=== PATIENT | female | born 1935 | race Caucasian/White ===

== ENCOUNTER 2017-03-18 17:37 | Emergency (ER) | payer MEDICARE, MEDICAID ==
[~2017-03-18] VITALS: Ht 165.1 cm; Wt 74.8 kg
[~2017-03-18 17:37] MED LIST: ASPIR 8181 MG ORAL; ATORVASTATIN CA10 MG ORAL; BENICAR20 MG ORAL; BISACODYL5 MG ORAL; JANUMET 50-1,01 EACH ORAL
[2017-03-18 18:10] VITALS: BP 122/89
[2017-03-18] MEDS ORDERED: TYLENOL EXTRA500 MG ORAL (20:01)
[2017-03-18 20:30] VITALS: BP 132/82
--- NOTE | 2017-03-18 21:40 | Emergency Room Report ---
History of Present Illness General Chief Complaint: Multiple Trauma/Fall Source: Patient Present Illness HPI The patient is a 81-year-old female brought in by daughter after she fell yesterday. The daughter states that the patient was walking on the sidewalk, tripped, and fell onto the left side. She is unsure if she fell and hit her head. Pain is described as a 10/10 dull ache to the L hip and L knee. Pain does not radiate. It is worse with walking. She denies prior injury to these areas. She denies any numbness or tingling. She denies headache, dizziness, blurred vision, N, V, F, chills, abd pain, CP, SOB Mother states patient had a CVA 4 months prior and is taking baby aspirin Allergies: Coded Allergies: PREDNISONE (Verified Allergy, Severe, REDNESS, SWELLING, 03/06/14) PENICILLINS (Verified Allergy, Intermediate, 03/18/17) Patient History Past Medical History: see triage record Pertinent Family History: none Now: No Reviewed Nursing Documentation: PMH: Agreed, PSxH: Agreed Nursing Documentation-PMH Past Medical History: No History, Except For Hx Cardiac Problems: Yes Hx Hypertension: Yes Hx Diabetes: Yes Hx Cancer: No Hx Gastrointestinal Problems: Yes Hx Neurological Problems: No Hx Cerebrovascular Accident: Yes - in oct 2016, R sided weakness Review of Systems All Other Systems: negative except mentioned in HPI Physical Exam Vital Signs Date Time Temp Pulse Resp B/P Pulse Ox O2 Delivery O2 Flow Rate FiO2 03/18/17 17:50 98.1 96 15 120/87 98 Room Air Sp02 EP Interpretation: reviewed, normal General Appearance: no apparent distress, alert, GCS 15, non-toxic Head: normocephalic, atraumatic Eyes: bilateral eye PERRL, bilateral eye normal inspection ENT: hearing grossly normal, normal pharynx, no angioedema, normal voice Neck: full range of motion, supple/symm/no masses Musculoskeletal: normal range of motion, no calf tenderness, pelvis stable, tender - TTP over the L anterior knee and L lateral hip Neurologic: alert, oriented x3, responsive, motor strength/tone normal, sensory intact, speech normal Psychiatric: judgement/insight normal, memory normal, mood/affect normal, no suicidal/homicidal ideation Skin: normal color, no rash, warm/dry, well hydrated Lymphatic: no adenopathy Medical Decision Making PA Attestation Dr. Calhoun is my supervising physician. Patient management was discussed with my supervising physician Diagnostic Impression: Primary Impression: Contusion Qualified Codes: S80.02XA - Contusion of left knee, initial encounter Additional Impression: Osteoarthritis Qualified Codes: M16.9 - Osteoarthritis of hip, unspecified ER Course The patient is a 81-year-old female brought in by daughter after she fell yesterday. Ddx considered include but not limited to ICH, sprain/strain, fracture, contusion PE: vitals WNL. NAD Head NC/AT. PERRL TTP over the L lateral hip and L anterior knee Slow gait The patient is given Tylenol for pain as requested. She denies any other medications. CT scan of the head, L. spine, and pelvis are all unremarkable for acute findings. Left knee x-ray is unremarkable. The patient will be discharged home. She is given the images which she will take to her primary physician. ER precautions are given Other X-Ray Diagnostic Results Other X-Ray Diagnostic Results : X-Ray Ordered: L knee Date: Mar 18, 2017 EP Interpretation: Yes Findings: no fractures, no dislocation, no soft tissue swelling Number of Views: 3 PA Scribe Text I am acting as scribe for my supervising physician. My supervising physician's interpretation of the L knee xrays are there are no fractures, dislocations or soft tissue swelling. CT/MRI/US Diagnostic Results CT/MRI/US Diagnostic Results #1: Imaging Test Ordered: L spine Impression Unremarkable for acute findings CT/MRI/US Diagnostic Results #2: Imaging Test Ordered: Pelvis Impression Unremarkable for acute findings CT/MRI/US Diagnostic Results #3: Imaging Test Ordered: Head Impression Unremarkable for acute findings. No ICH Last Vital Signs Date Time Temp Pulse Resp B/P Pulse Ox O2 Delivery O2 Flow Rate FiO2 03/18/17 20:30 80 14 132/82 94 Room Air 03/18/17 18:10 98.0 Status: improved Disposition: HOME, SELF-CARE Condition: Improved Scripts Acetaminophen* (TYLENOL EXTRA STRENGTH*) 500 Mg Tablet 500 MG ORAL Q8H Y for Prn Headache/Temp > 101, #30 TAB 0 Refills Prov: LIBBY GARCIA.Amado 03/18/17 Referrals: JERRELL STONER (PCP) Patient Instructions: Knee Pain, Arthritis, Fall Prevention in the Home Additional Instructions: I discussed my findings with the patient. All questions and concerns have been answered. Treatment and medication compliance have been addressed. I advised the patient that they need to follow up with PMD in 3-5 days. Return to ED if pain remains or worsens, numbness or tingling occurs, new rash is noticed, fever is noticed, or if needed for any reason. Patient verbalized understanding of discharge instructions. LIBBY GARCIA Mar 18, 2017 21:40
--- NOTE | 2017-03-19 09:49 | Diagnostic Imaging Report ---
Indications: Low back pain Technique: Continuous helical CT imaging of the lumbar spine was performed with automatic exposure control on a Siemens sensation [address] scanner. Axial, coronal, and sagittal images were reconstructed at 3 mm slice thicknesses. CTDI volume(s): 16 mGy Total DLP: 412 mGy-cm Findings: Comparison: None 3 mm subluxation of L2 on L3. No associated pars interarticularis defect. Remainder of vertebral and intact. No fracture, facet subluxation or dislocation, lytic destruction, paraspinous soft tissue abnormality or other acute change identified. The lumbar intervertebral disc spaces demonstrate varying degrees of narrowing with marginal osteophyte formation with annular disc bulge, vacuum phenomenon. Facet joints variably sclerotic and hypertrophied. Spinal canal appears variably narrowed at each level. Scattered arterial mural calcifications. Vascular patency indeterminate. IMPRESSION: No evidence of acute lumbar abnormality George lumbar degenerative spondylosis with apparent multilevel spinal stenosis. Neural impingement not excludable. Consider MRI for further evaluation as clinically indicated. L2-3 grade 1 anterior spondylolisthesis, likely chronic degenerative in nature. Lateral flexion and extension radiographs may be obtained to ascertain stability. Arteriosclerosis This correlates with preliminary report generated overnight by Dr. Aleman.
--- NOTE | 2017-03-19 09:59 | Diagnostic Imaging Report ---
Indications: Left knee pain Technique: 3 views left knee. Findings: Comparison: None No fracture, dislocation, joint space widening or effusion, lytic destruction, periosteal reaction , surrounding soft tissue swelling/foreign body/gas, or other acute changes are identified. Lateral knee joint compartment narrowed with subchondral sclerosis, possible vacuum phenomenon. Small sliver-like osseous density adjacent to medial femoral condyle. No other chronic changes are demonstrated. IMPRESSION: No evidence of acute abnormality of the left knee Degenerative arthropathy Pepe-Stieda lesion compatible with prior injury to the medial collateral ligament
--- NOTE | 2017-03-19 10:02 | Diagnostic Imaging Report ---
Indications: Pelvic pain Technique: Continuous helical CT imaging of the pelvis was performed with automatic exposure control on a Siemens sensation [address] scanner. Axial, coronal, sagittal images reconstructed at 3 mm slice thickness. CTDI volume(s): 14 mGy Total DLP: 430 mGy-cm Findings: Comparison: None No fracture, dislocation, joint space widening, lytic destruction, periosteal reaction, surrounding soft tissue swelling/mass/fluid/gas/foreign body, or other acute changes are identified. Scattered arterial mural calcifications are present. Vascular patency indeterminate. Small focal hernia contains only fat. 3.5 cm circumscribed fatty mass in the periphery of right flank abdominal wall musculature. Multilevel disc space narrowing with marginal osteophyte formation, vacuum phenomenon lower lumbar spine. IMPRESSION: No evidence of acute abnormality of the pelvis Degenerative spondylosis Fat-containing umbilical hernia Right flank abdominal wall muscular lipoma Arteriosclerosis This correlates with Dr. Aleman's preliminary report.
--- NOTE | 2017-03-20 07:59 | Diagnostic Imaging Report ---
Indications: Cephalgia Technique: Continuous helical CT imaging of the brain was performed with automatic exposure control on a Siemens sensation [address] scanner. Axial and coronal images were reconstructed at 5 mm slice thickness and interval. CTDI volume(s): 70 mGy Total DLP: 1368 mGy-cm Findings: Comparison: None. Subcentimeter nodular metallic density resides within the fissure for the right middle cerebral artery. Ventricles, cisterns, sulci are mildly, diffusely prominent. Suggestion of circumscribed low attenuation in king at level of middle cerebellar peduncles.. No evidence of mass or hemorrhage, other attenuation abnormality, mass effect, midline shift, hydrocephalus or increased intracranial pressure. Bone window images are unremarkable. Visualized paranasal sinuses and mastoid air cells are clear. IMPRESSION: Central pontine low attenuation, nonspecific, acuity indeterminate. May represent skull base artifact. Pathology not excludable. This finding not described in preliminary report, minor discrepancy due to questionable nature. Otherwise no evidence of acute intracranial pathology Previous right middle cerebral artery aneurysm coiling Atrophy. This otherwise correlates with Dr. Aleman's preliminary report. The CT scanner at [facility] is accredited by the [employer] and the scans are performed using protocols designed to limit radiation exposure to as low as reasonably achievable to attain images of sufficient resolution adequate for diagnostic evaluation.
== END 2017-03-18 20:35 | disposition home or self-care (01) ==
LOC: EMR 18:06
DX: S80.02XA Contusion of left knee, initial encounter (principal); M16.9 Osteoarthritis of hip, unspecified; W01.0XXA Fall on same level from slipping, tripping and stumbling without subsequent striking against object, initial encounter; Y93.9 Activity, unspecified; Y92.9 Unspecified place or not applicable; Z88.8 Allergy status to other drugs, medicaments and biological substances; Z88.0 Allergy status to penicillin; I10 Essential (primary) hypertension; E11.9 Type 2 diabetes mellitus without complications; Z86.73 Personal history of transient ischemic attack (TIA), and cerebral infarction without residual deficits; Z79.82 Long term (current) use of aspirin
CPT/HCPCS: 70450; 72131; 72192; 99284

== ENCOUNTER 2017-07-22 22:34 | Inpatient (IN) | payer MEDICARE, MEDICAID ==
[~2017-07-22] VITALS: Ht 167.6 cm; Wt 77.1 kg
[~2017-07-22 22:34] MED LIST changes: +TYLENOL EXTRA500 MG ORAL
[2017-07-22 23:03] VITALS: BP 165/70
[2017-07-22] MEDS ORDERED: Morphine Sulfate 4mg/ml Inj IVP ONE (23:15)
[2017-07-22 23:33] LABS: BASOPHILS % (AUTO) 0.8 % (0.0-2.0); EOSINOPHILS % (AUTO) 0.5 % (0.0-3.0); LYMPHOCYTES % (AUTO) 36.5 % (20.0-45.0); MEAN CORPUSCULAR HGB CONC 37.4 G/DL (32.0-36.0); MEAN CORPUSCULAR VOLUME 86 FL (80-99); NEUTROPHILS % (AUTO) 55.1 % (45.0-75.0); PLATELET COUNT 237 K/UL (150-450); RED CELL DISTRIBUTION WIDTH 10.2 % (11.6-14.8); WHITE BLOOD COUNT 10.5 K/UL (4.8-10.8)
[2017-07-22 23:47] LABS: PROTHROMBIN TIME 9.7 SEC (9.30-11.50)
[2017-07-22 23:47] LABS: KETONES,URINE 4+ (NEGATIVE); LEUKOCYTE ESTERASE ,URINE NEGATIVE (NEGATIVE); NITRITE,URINE NEGATIVE (NEGATIVE); PH,URINE 7 (4.5-8.0); PROTEIN,URINE NEGATIVE (NEGATIVE); UROBILINOGEN,URINE NORMAL MG/DL (0.0-1.0)
[2017-07-22 23:49] LABS: APPEARANCE,URINE CLEAR
[2017-07-22 23:50] LABS: SQUAMOUS EPITHELIAL CELL,UR FEW /LPF (NONE/OCC); WBC,URINE 0-2 /HPF (0 - 2)
[2017-07-22 23:50] LABS: TROPONIN I < 0.30 ng/mL (<=0.30)
[2017-07-22 23:53] LABS: ALANINE AMINOTRANSFERASE 27 U/L (3-33); ALBUMIN/GLOBULIN RATIO 1.6 (1.0-2.7); ANION GAP 19 (5-15); ASPARTATE AMINO TRANSFERASE 24 U/L (5-40); CALCIUM 9.2 mg/dL (8.6-10.2); CARBON DIOXIDE 20 mEQ/L (20-30); CHLORIDE 72 mEQ/L (98-107); CREATININE 0.6 mg/dL (0.5-0.9); HEMOLYSIS 13; POTASSIUM 2.9 mEQ/L (3.4-4.9); TOTAL PROTEIN 7.1 g/dL (6.6-8.7)
[2017-07-23] VITALS (9 sets, daily range): BP systolic 123–156; BP diastolic 55–75
[2017-07-23 00:03] LABS: SODIUM 111 mEQ/L (135-145)
[2017-07-23 00:29] LABS: BILIRUBIN,DIRECT 0.2 mg/dL (0.1-0.3)
[2017-07-23] MEDS ORDERED: NORVASC5 MG ORAL (00:43)
[2017-07-23 00:51] LABS: CARBON DIOXIDE 22 mEQ/L (20-30); CHLORIDE 73 mEQ/L (98-107); CREATININE 0.7 mg/dL (0.5-0.9); HEMOLYSIS 3
[2017-07-23] MEDS ORDERED: LORazepam Inj 2mg/ml 1ml IV ONE (01:00)
[2017-07-23 01:08] LABS: ANION GAP 16 (5-15)
[2017-07-23 01:14] LABS: SODIUM 111 mEQ/L (135-145)
[2017-07-23 01:15] LABS: POTASSIUM 2.8 mEQ/L (3.4-4.9)
--- NOTE | 2017-07-23 01:57 | Emergency Room Report ---
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 She require surgery. She presents with chief complaint of headache and nausea and vomiting. Onset for one day. No fever or chills. No diarrhea. No abdominal pain. Denies any other complaint. Colora weak. Allergies: Coded Allergies: PREDNISONE (Verified Allergy, Severe, REDNESS, SWELLING, 03/06/14) PENICILLINS (Verified Allergy, Intermediate, 03/18/17) Patient History Past Medical History: see triage record, old chart reviewed, DM, HTN Past Surgical History: other Pertinent Family History: none Social History: Denies: smoking Now: No Immunizations: other Reviewed Nursing Documentation: PMH: Agreed, PSxH: Agreed Nursing Documentation-PMH Hx Cardiac Problems: Yes Hx Hypertension: Yes Hx Diabetes: Yes Hx Cancer: No Hx Gastrointestinal Problems: Yes Hx Neurological Problems: No - Stroke Hx Cerebrovascular Accident: Yes - in oct 2016, R sided weakness Review of Systems Constitutional: Reports: malaise, weakness Eye: Denies: eye pain, blurred vision ENT: Denies: ear pain, nose congestion, throat swelling Respiratory: Denies: cough, shortness of breath Cardiovascular: Denies: chest pain, palpitations Gastrointestinal: Reports: nausea, vomiting, Denies: abdominal pain, diarrhea Musculoskeletal: Denies: back pain, joint pain Skin: Denies: rash Neurological: Reports: headache, Denies: numbness Endocrine: Denies: increased thirst, increased urine Hematologic/Lymphatic: Denies: easy bruising All Other Systems: negative except mentioned in HPI Physical Exam Vital Signs Date Time Temp Pulse Resp B/P (MAP) Pulse Ox O2 Delivery O2 Flow Rate FiO2 07/22/17 22:29 98.1 73 18 165/70 98 Room Air vitals with hypertension Sp02 EP Interpretation: reviewed, normal General Appearance: no apparent distress, alert, other - Ill-appearing Head: normocephalic, atraumatic Eyes: bilateral eye PERRL, bilateral eye EOMI ENT: hearing grossly normal, normal pharynx Neck: full range of motion, supple, no meningismus Respiratory: chest non-tender, lungs clear, normal breath sounds Cardiovascular #1: regular rate, rhythm, no murmur Gastrointestinal: normal bowel sounds, non tender, no mass, no organomegaly, no bruit, non-distended Musculoskeletal: back normal, normal range of motion Neurologic: alert, oriented x3 Psychiatric: mood/affect normal Skin: warm/dry Procedures Critical Care Time Critical Care Time Critical care is mandated in this patient who presented with severely low p.m.. Patient require my urgent intervention to attenuate the risks of metabolic collapse which may lead to cardiovascular collapse and . Critical care time is 35 minutes excluding any reportable procedure. Critical care time included evaluation, multiple reevaluation, looking at old charts, interpreting laboratory and diagnostic data, discussing case with patient and family and consultants, and charting. Medical Decision Making Diagnostic Impression: Primary Impression: Hyponatremia Additional Impressions: Hypokalemia Weakness ER Course Patient with generalize weakness and has severe hyponatremia and hypokalemia. IV fluid given. She was also given potassium. No evidence of any bleed. No focal deficit to indicate TIA or CVA. Is no abnormal pain. EKG Diagnostic Results Rate: normal Rhythm: NSR ST Segments: no acute changes Rhythm Strip Diag. Results Rhythm Strip Time: 01:53 EP Interpretation: yes Rate: 71 Rhythm: NSR, no PVC's, no ectopy Chest X-Ray Diagnostic Results Chest X-Ray Diagnostic Results : Chest X-Ray Ordered: Yes # of Views/Limited/Complete: 1 View Indication: Shortness of Breath EP Interpretation: Yes Interpretation: no consolidation, no effusion, no pneumothorax, no acute cardiopulmonary disease Impression: No acute disease Interpreting ER Provider: Electronically signed by Omega Troncoso MD CT/MRI/US Diagnostic Results CT/MRI/US Diagnostic Results : Imaging Test Ordered: CT head Impression read by radiologist. Negative. Last Vital Signs Date Time Temp Pulse Resp B/P (MAP) Pulse Ox O2 Delivery O2 Flow Rate FiO2 07/23/17 01:00 72 18 156/66 94 Room Air 07/23/17 00:22 98.1 Status: improved Disposition: ADMITTED INPATIENT Condition: Serious Referrals: NON PHYSICIAN (PCP) OMEGA TRONCOSO M.D. Jul 23, 2017 01:57
[2017-07-23] MEDS ORDERED: Miralax 17gm pkt ORAL PRN (05:00)
[2017-07-23] MEDS ORDERED: Zolpidem 5mg tab ORAL PRN (05:00)
[2017-07-23] MEDS ORDERED: Morphine Sulfate 2mg/ml Inj IVP PRN (05:00)
[2017-07-23] MEDS ORDERED: LORazepam Inj 2mg/ml 1ml IV PRN (05:00)
[2017-07-23] MEDS ORDERED: Mylanta II UD 30ml ORAL PRN (05:00)
[2017-07-23] MEDS ORDERED: NaCl 3% 500ml 500 ML IV ONE (05:30)
[2017-07-23] MEDS: NovoLOG Insulin Flexpen SUBQ SCH ×4 (07:00→22:07)
--- NOTE | 2017-07-23 07:53 | Consultation ---
History of Present Illness General Date patient seen: Jul 23, 2017 Time patient seen: 07:00 Chief Complaint: Vomiting Referring physician: dr Goodwin Reason for Consultation: inpatient management Present Illness HPI 81-year-old female with history of hypertension, diabetes and CVA due to ruptured aneurysm ( required surgery. presents with generalized weakness, headache , nausea and vomiting x 1 day . No fever or chills. No diarrhea. No abdominal pain. Workup in ED revealed Na-111, K-2.8 CXR no acute CP disease CT head no acute IC pathology troponin negative ECG NSR patient was given 1 L NaCl in ED and admitted for further management this am c/o headaches, generalized wakens, vomiting yesterday, but not today patient reported being on diuretics at home, funes not remember name Allergies: Coded Allergies: PREDNISONE (Verified Allergy, Severe, REDNESS, SWELLING, 03/06/14) PENICILLINS (Verified Allergy, Intermediate, 03/18/17) Medication History Scheduled Amlodipine Besylate (Norvasc), 5 MG ORAL DAILY, (Reported) Aspirin* (Aspir 81*), 81 MG ORAL DAILY, (Reported) Atorvastatin Calcium* (Lipitor*), 10 MG ORAL BEDTIME, (Reported) Bisacodyl* (Dulcolax*), 5 MG ORAL DAILY, (Reported) Captopril (Captopril), 25 MG PO DAILY, (Reported) Carvedilol (Coreg), 3.125 MG ORAL EVERY 12 HOURS, (Reported) Olmesartan Medoxomil (Benicar), 20 MG ORAL DAILY, (Reported) Olmesartan Medoxomil (Olmesartan Medoxomil), 20 MG PO HS, (Reported) Sitagliptin Phos/Metformin Hcl (Janumet 50-1,000 Mg Tablet), 1 TAB ORAL DAILY, ( Reported) Sitagliptin Phos/Metformin Hcl (Janumet 50-500 Mg Tablet), 1 TAB ORAL TWICE A DAY, (Reported) Tizanidine Hcl (Tizanidine Hcl), 4 MG ORAL HS, (Reported) Scheduled PRN Acetaminophen* (Tylenol Extra Strength*), 500 MG ORAL Q8H PRN for Prn Headache/ Temp > 101 Zolpidem Tartrate* (Ambien*), 5 MG ORAL BEDTIME PRN for Insomnia, (Reported) Patient History History Provided By: Patient Healthcare decision maker Resuscitation status Full Code Advanced Directive on File No Past Medical/Surgical History Past Medical/Surgical History: (1) Brain aneurysm (2) History of CVA (cerebrovascular accident) (3) 23-polyvalent pneumococcal polysaccharide vaccine indication of diabetes in patient 6 to 64 years of age (4) HTN (hypertension) Review of Systems Constitutional: Reports: weakness Eye: Reports: no symptoms ENT: Reports: no symptoms Cardiovascular: Reports: other - HTN Gastrointestinal: Reports: see HPI Musculoskeletal: Reports: joint pain, muscle stiffness Skin: Reports: no symptoms Psychiatric: Reports: no symptoms Neurological: Reports: no symptoms Endocrine: Reports: other - diabetes Physical Exam General Appearance: alert - oriented, responsive, weak [place]an speaking female in NAD Lines, tubes and drains: peripheral HEENT: normocephalic, atraumatic, anicteric, mucous membranes moist Neck: supple Respiratory/Chest: lungs clear, normal breath sounds, no respiratory distress Cardiovascular/Chest: normal rate, regular rhythm Abdomen: normal bowel sounds, non tender, soft Extremities: no calf tenderness, normal capillary refill Skin Exam: warm/dry Neurologic: alert, oriented x 3 Musculoskeletal: normal muscle bulk Last 24 Hour Vital Signs Date Time Temp Pulse Resp B/P (MAP) Pulse Ox O2 Delivery O2 Flow Rate FiO2 07/23/17 04:00 75 07/23/17 03:05 96.8 71 16 135/67 97 Room Air 07/23/17 02:31 73 07/23/17 02:14 98.1 70 17 146/66 94 Room Air 07/23/17 02:00 70 17 146/66 94 Room Air 07/23/17 01:00 72 18 156/66 94 Room Air 07/23/17 00:22 98.1 07/23/17 00:00 72 19 130/63 97 Room Air 07/22/17 23:03 98.1 70 18 165/70 98 Room Air 07/22/17 22:29 98.1 73 18 165/70 98 Room Air Laboratory Tests Test 07/22/17 23:00 07/22/17 23:40 07/23/17 00:05 White Blood Count 10.5 K/UL (4.8-10.8) Red Blood Count 4.50 M/UL (4.20-5.40) Hemoglobin 14.4 G/DL (12.0-16.0) Hematocrit 38.5 % (37.0-47.0) Mean Corpuscular Volume 86 FL (80-99) Mean Corpuscular Hemoglobin 32.0 PG (27.0-31.0) H Mean Corpuscular Hemoglobin Concent 37.4 G/DL (32.0-36.0) H Red Cell Distribution Width 10.2 % (11.6-14.8) L Platelet Count 237 K/UL (150-450) Mean Platelet Volume 8.0 FL (6.5-10.1) Neutrophils (%) (Auto) 55.1 % (45.0-75.0) Lymphocytes (%) (Auto) 36.5 % (20.0-45.0) Monocytes (%) (Auto) 7.0 % (1.0-10.0) Eosinophils (%) (Auto) 0.5 % (0.0-3.0) Basophils (%) (Auto) 0.8 % (0.0-2.0) Prothrombin Time 9.7 SEC (9.30-11.50) Prothromb Time International Ratio 1.0 (0.9-1.1) Activated Partial Thromboplast Time 27 SEC (23-33) Sodium Level 111 mEQ/L (135-145) *L 111 mEQ/L (135-145) *L Potassium Level 2.9 mEQ/L (3.4-4.9) L 2.8 mEQ/L (3.4-4.9) L Chloride Level 72 mEQ/L (98-107) L 73 mEQ/L (98-107) L Carbon Dioxide Level 20 mEQ/L (20-30) 22 mEQ/L (20-30) Anion Gap 19 (5-15) H 16 (5-15) H Blood Urea Nitrogen 14 mg/dL (7-23) 14 mg/dL (7-23) Creatinine 0.6 mg/dL (0.5-0.9) 0.7 mg/dL (0.5-0.9) Estimat Glomerular Filtration Rate mL/min (>60) mL/min (>60) Glucose Level 173 mg/dL (74-106) H 173 mg/dL (74-106) H Calcium Level 9.2 mg/dL (8.6-10.2) 9.0 mg/dL (8.6-10.2) Total Bilirubin 1.3 mg/dL (0.0-1.2) H Direct Bilirubin 0.2 mg/dL (0.1-0.3) Aspartate Amino Transf (AST/SGOT) 24 U/L (5-40) Alanine Aminotransferase (ALT/SGPT) 27 U/L (3-33) Alkaline Phosphatase 82 U/L (35-104) Troponin I < 0.30 ng/mL (<=0.30) Total Protein 7.1 g/dL (6.6-8.7) Albumin 4.4 g/dL (3.5-5.2) Globulin 2.7 g/dL Albumin/Globulin Ratio 1.6 (1.0-2.7) Urine Color Yellow Urine Appearance Clear Urine pH 7 (4.5-8.0) Urine Specific [place] 1.015 (1.005-1.035) Urine Protein Negative (NEGATIVE) Urine Glucose (UA) Negative (NEGATIVE) Urine Ketones 4+ (NEGATIVE) H Urine Occult Blood 2+ (NEGATIVE) H Urine Nitrite Negative (NEGATIVE) Urine Bilirubin Negative (NEGATIVE) Urine Urobilinogen Normal MG/DL (0.0-1.0) Urine Leukocyte Esterase Negative (NEGATIVE) Urine RBC 2-4 /HPF (0 - 2) H Urine WBC 0-2 /HPF (0 - 2) Urine Squamous Epithelial Cells Few /LPF (NONE/OCC) Urine Bacteria None /HPF (NONE) Height (Feet): 5 Height (Inches): 6.00 Weight (Pounds): 170 Medications Current Medications Medications (Trade) Dose Ordered Sig/Ethan Route PRN Reason Start Time Stop Time Status Last Admin Dose Admin Acetaminophen (Tylenol) 650 mg Q4H PRN ORAL fever 07/23/17 05:00 08/22/17 04:59 Al Hydroxide/Mg Hydroxide (Mylanta II) 30 ml Q6H PRN ORAL dyspepsia 07/23/17 05:00 08/22/17 04:59 Amlodipine Besylate (Norvasc) 5 mg DAILY ORAL 07/23/17 09:00 08/22/17 08:59 Atorvastatin Calcium (Lipitor) 10 mg BEDTIME ORAL 07/23/17 21:00 08/22/17 20:59 Bisacodyl (Dulcolax) 5 mg DAILY ORAL 07/23/17 09:00 08/22/17 08:59 Dextrose (Dextrose 50%) STAT PRN IV Hypoglycemia 07/23/17 05:00 08/22/17 04:59 Heparin Sodium (Porcine) (Heparin 5000 units/ml) 5,000 units EVERY 12 HOURS SUBQ 07/23/17 09:00 08/22/17 08:59 Insulin Aspart (NovoLOG) BEFORE MEALS AND HS SUBQ 07/23/17 06:30 08/22/17 06:29 Lorazepam (Ativan 2mg/ml 1ml) 0.5 mg Q4H PRN IV For Anxiety 07/23/17 05:00 07/30/17 04:59 Morphine Sulfate (Morphine Sulfate) 1 mg Q4H PRN IVP For Pain 07/23/17 05:00 07/30/17 04:59 Ondansetron HCl (Zofran) 4 mg Q6H PRN IVP Nausea & Vomiting 07/23/17 05:00 08/22/17 04:59 Polyethylene Glycol (Miralax) 17 gm HSPRN PRN ORAL Constipation 07/23/17 05:00 08/22/17 04:59 Sodium Chloride 500 ml @ 30 mls/hr ONCE ONCE IV 07/23/17 05:30 07/23/17 22:09 07/23/17 06:00 Zolpidem Tartrate (Ambien) 5 mg HSPRN PRN ORAL Insomnia 07/23/17 05:00 07/30/17 04:59 Assessment/Plan Assessment/Plan ASSESSMENT acute hyponatremia possibly due to dehydration r/o SIADH acute hypokalemia nausea and vomiting likely due to acute hypoNa headache HTN DM Hx of CVA PLAN OF CARE tele 3% NaCL , check BMP at 18 hypo Na workup nephro eval per PMD replace K BP management with CCB, optimize further as needed continue statin, check lipid panel BS management with SS of insulin replace K DVT prophayxlis Pain management case discussed and evaluated by supervising physician Armin ([facility])Jessica NP Jul 23, 2017 07:53
--- NOTE | 2017-07-23 08:23 | Diagnostic Imaging Report ---
Indication: Altered mental status Technique: Contiguous 5 mm thick transaxial imaging of the head obtained in a Siemens Sensation [address] scanner. Soft tissue and bone windows generated. Total Dose length Product (DLP): [address] Dose Index Volume (CTDIvol): 70.38, 0.15 mGy Comparison: 03/18/17 Findings: There is an aneurysm coil in the area of the right sylvian fissure. There is resultant streak artifact limiting evaluation of adjacent brain. Otherwise, size and configuration of the cortical sulci, basal cisterns, and ventricles are within normal limits for age. There is no mass effect, midline shift, or edema identified. There is no evidence of acute hemorrhage or abnormal intra-axial or extra-axial fluid collections. The bones and soft tissues are unremarkable. Impression: No mass effect, edema or acute bleed. Status post previous right aneurysm coil The CT scanner at [facility] is accredited by the [employer] and the scans are performed using dose optimization techniques as appropriate to a performed exam including Automatic Exposure control.
--- NOTE | 2017-07-23 08:37 | Diagnostic Imaging Report ---
Indication: Dyspnea Comparison: 01/16/13 A single view chest radiograph was obtained. Findings: Lung volumes are low. No obvious pulmonary edema or infiltrate. Heart is enlarged. Bones are osteopenic. Aorta is calcified. Impression: No acute disease
[2017-07-23] MEDS: Heparin 5000 units/ml inj SUBQ SCH ×2 (09:00→21:00)
[2017-07-23] MEDS: Bisacodyl EC 5mg tab ORAL SCH (10:26)
[2017-07-23 11:08] LABS: BASOPHILS % (AUTO) 0.6 % (0.0-2.0); EOSINOPHILS % (AUTO) 0.4 % (0.0-3.0); LYMPHOCYTES % (AUTO) 27.2 % (20.0-45.0); MEAN CORPUSCULAR HEMOGLOBIN 32.1 PG (27.0-31.0); MEAN CORPUSCULAR HGB CONC 37.2 G/DL (32.0-36.0); MEAN CORPUSCULAR VOLUME 86 FL (80-99); MEAN PLATELET VOLUME 8.4 FL (6.5-10.1); MONOCYTES % (AUTO) 6.5 % (1.0-10.0); NEUTROPHILS % (AUTO) 65.4 % (45.0-75.0); PLATELET COUNT 236 K/UL (150-450); RED BLOOD COUNT 4.32 M/UL (4.20-5.40); RED CELL DISTRIBUTION WIDTH 10.4 % (11.6-14.8); WHITE BLOOD COUNT 10.9 K/UL (4.8-10.8)
[2017-07-23 11:39] LABS: THYROID STIMULATING HORMONE 2.46 uIU/mL (0.300-4.500)
--- NOTE | 2017-07-23 13:11 | History & Physical ---
History and Physical History & Physicial Dictated for Int Med-Dr Goodwin no. [id number]. KAILA KENNEDY Jul 23, 2017 13:11
--- NOTE | 2017-07-23 13:37 | Consultation ---
Consult Note Consult Note asked to eval for low Na Is a 81-year-old female with history hypertension, diabetes and a previous stroke secondary to ruptured aneurysm. She require surgery. She presents with chief complaint of headache and nausea and vomiting. Onset for one day. No fever or chills. No diarrhea. No abdominal pain. Denies any other complaint. [place] weak. Coded Allergies: PREDNISONE (Verified Allergy, Severe, REDNESS, SWELLING, 03/06/14) PENICILLINS (Verified Allergy, Intermediate, 03/18/17) Hx Cardiac Problems: Yes Hx Hypertension: Yes Hx Diabetes: Yes Hx Gastrointestinal Problems: Yes Hx Cerebrovascular Accident: Yes - in oct 2016, R sided weakness Assessment/Plan Assessment/Plan ASSESSMENT acute hyponatremia ? due to dehydration , r/o SIADH acute hypokalemia HTN DM Hx of CVA PLAN OF CARE tele 3% NaCL , check BMP at 18 hypo Na workup replace K BP management with CCB, optimize further as needed continue statin, check lipid panel BS management with SS of insulin replace K DVT prophayxlis Pain management JAYJAY LAUGHLIN Jul 23, 2017 13:37
[2017-07-23] MEDS ORDERED: CAPTOPRIL25 M1 PO (15:19)
[2017-07-23] MEDS ORDERED: OLMESARTAN MEDO20 MG PO (15:19)
[2017-07-23] MEDS ORDERED: AMBIEN5 MG ORAL (15:19)
[2017-07-23] MEDS ORDERED: TIZANIDINE HCL4 M2 ORAL (15:19)
[2017-07-23] MEDS ORDERED: COREG3.125 MG ORAL (15:19)
[2017-07-23] MEDS ORDERED: JANUMET 50-5001 EACH ORAL (15:19)
[2017-07-23 15:41] LABS: APPEARANCE,URINE CLEAR; KETONES,URINE 3+ (NEGATIVE); LEUKOCYTE ESTERASE ,URINE NEGATIVE (NEGATIVE); NITRITE,URINE NEGATIVE (NEGATIVE); PH,URINE 6 (4.5-8.0); PROTEIN,URINE NEGATIVE (NEGATIVE); UROBILINOGEN,URINE NORMAL MG/DL (0.0-1.0)
[2017-07-23 15:58] LABS: SQUAMOUS EPITHELIAL CELL,UR OCCASIONAL /LPF (NONE/OCC); WBC,URINE 0-2 /HPF (0 - 2)
[2017-07-23 15:59] LABS: BACTERIA,URINE OCCASIONAL /HPF
[2017-07-23 20:02] LABS: ANION GAP 16 (5-15); CALCIUM 8.7 mg/dL (8.6-10.2); CARBON DIOXIDE 23 mEQ/L (20-30); CHLORIDE 79 mEQ/L (98-107); CREATININE 0.8 mg/dL (0.5-0.9); HEMOLYSIS 9; POTASSIUM 3.4 mEQ/L (3.4-4.9)
[2017-07-23 20:08] LABS: SODIUM 118 mEQ/L (135-145)
[2017-07-23] MEDS: NS w/KCl 20mEq 1,000 ML IV SCH (23:49)
[2017-07-24 03:46] VITALS: BP 121/54
--- NOTE | 2017-07-24 04:45 | History and Physical Report ---
DATE OF ADMISSION: 07/23/[address] Goodwin. CHIEF COMPLAINT: The patient is a 81-year-old white female with history of cerebral aneurysm, who presents with chief complaint of headache, nausea, and vomiting. HISTORY OF PRESENT ILLNESS: The patient has a history of cerebral aneurysm in October 2016. The patient is status post craniotomy with clip placement. The patient states she began to have headache two days previously. Headache is on the right side. The patient stated she also had elevated blood pressure to " /30." The patient presented to [place] emergency room. The patient was found to have sodium of 111. The patient was admitted for headache, nausea, vomiting, and hyponatremia. PAST MEDICAL HISTORY: Significant for 1. Hypertension. 2. Diabetes type 2. 3. Cerebral aneurysm in October 2016, status post clip placement. 4. Cerebrovascular accident in October 2016 after aneurysm as above. 5. Hypercholesterolemia. PAST SURGICAL HISTORY: Significant for 1. Right craniotomy with clip placement as above. 2. Right hammertoe repair. CURRENT MEDICATIONS: 1. Norvasc 5 mg one tablet p.o. daily. 2. Aspirin 81 mg one tablet p.o. daily. 3. Lipitor 10 mg one tablet p.o. nightly. 4. Dulcolax 5 mg one tablet p.o. daily. 5. Benicar 20 mg one tablet p.o. daily. 6. Janumet one tablet p.o. daily. ALLERGIES: 1. Prednisolone. 2. Penicillin. SOCIAL HISTORY: The patient is and lives with her adult daughter. The patient denies tobacco or alcohol use. REVIEW OF SYSTEMS: Constitutional: The patient denies weight loss or weight gain. The patient denies fevers or chills. HEENT: The patient complains of headache as above. The patient denies ear or throat pain. Cardiovascular: The patient denies palpitations or chest pain. Chest: The patient denies wheeze or shortness of breath. Abdomen: The patient complains of nausea and vomiting as above. The patient denies diarrhea or constipation. Genitourinary: The patient denies dysuria or increased frequency of urination. Neuromuscular: The patient denies seizures or generalized weakness. PHYSICAL EXAMINATION: GENERAL: The patient is a well-developed and well-nourished white female, in no apparent distress. VITAL SIGNS: Temperature 98.1 degrees, respirations 18, pulse 72, and blood pressure 156/66. HEENT: Eyes, pupils are equal and responsive to light and accommodation. Extraocular movements are intact. NECK: Supple without lymphadenopathy. CHEST: Lungs are clear to auscultation bilaterally without wheezes or rales. CARDIOVASCULAR: Regular rhythm and rate. S1 and S2 are normal without murmurs, rubs, or gallops. ABDOMEN: Soft, nontender, and nondistended. Positive bowel sounds. No evidence of hepatosplenomegaly. Currently, no rebound or guarding noted. EXTREMITIES: Negative for clubbing, cyanosis, or edema. RECTAL/GENITAL: Refused. NEUROLOGIC: Cranial nerves II to XII are grossly intact without focal deficits. Motor strength is 5/5 bilaterally. Deep tendon reflexes are 2+ plantar. LABORATORY STUDIES: WBC 10.5, hemoglobin 14.4, hematocrit 38.5, and platelets 237,000. Sodium 111, potassium 2.9, chloride 72, CO2 of 20, BUN 14, creatinine 0.6, and glucose 173. Troponin less than 0.3. Urinalysis showed 4+ ketones, 2+ occult blood, and 2 to 4 RBCs. ASSESSMENT: This is a 81-year-old white female 1. Headache. 2. Nausea and vomiting. 3. Hyponatremia. 4. Hypokalemia. 5. Hypertension. 6. Diabetes type 2. 7. Hypercholesterolemia. 8. History of cerebral aneurysm. 9. History of cerebrovascular accident. TREATMENT: 1. Headache/nausea/vomiting. The patient is currently receiving Zofran as needed for nausea and vomiting. The patient is currently tolerating a liquid diet. The patient has been receiving morphine for headache. This is slowly resolving. 2. Hyponatremia/hypokalemia. The patient is currently receiving intravenous fluids. 3. Hypertension. Continue Benicar as above. 4. Diabetes type 2. The patient is currently on a NovoLog sliding scale. 5. Hypercholesteremia. Continue Lipitor as above. 6. History of cerebral aneurysm. 7. History of cerebrovascular accident. Kermit Williamson M.D. DR: DANG JOB#: [id number] CC:
--- NOTE | 2017-07-24 07:16 | Pulmonology Progress Note ---
Assessment/Plan Assessment/Plan ASSESSMENT acute hyponatremia probably SIADH acute hypokalemia e/lyte imbalance: hypo mg, hypo P nausea and vomiting likely due to acute hypo Na headache HTN DM Hx of CVA Hypercholesteremia PLAN OF CARE tele s/p 500 cc3% NaCL , Na-118 fluid restriction IV maintenance nephro follows hypo Na workup per nephro another 3% NaCl and Lasix likely SIADH BP management with CCB, optimize further as needed lipid panel with elevated LDL crisis counselor on low fat low cholesterol diet increase statin dose replace lytes BS management with SS of insulin DVT prophayxlis Pain management a/emetic prn case discussed and evaluated by supervising physician Subjective Allergies: Coded Allergies: PREDNISONE (Verified Allergy, Severe, REDNESS, SWELLING, 03/06/14) PENICILLINS (Verified Allergy, Intermediate, 03/18/17) Subjective s/p 3 % NaCL on 07/23 BMP at 18 Na still 120 on IV maintenance still generalized weakness, nausea no vomiting sitting in the chair Objective Last 24 Hour Vital Signs Date Time Temp Pulse Resp B/P (MAP) Pulse Ox O2 Delivery O2 Flow Rate FiO2 07/24/17 03:59 70 07/24/17 03:46 98.6 68 19 121/54 97 Room Air 07/23/17 23:41 98.2 72 18 138/55 96 Room Air 07/23/17 23:33 77 07/23/17 19:43 98.8 76 19 149/75 94 Room Air 07/23/17 19:23 73 07/23/17 16:00 73 07/23/17 15:47 97.7 71 18 123/60 95 Room Air 07/23/17 12:00 73 07/23/17 11:26 97.6 67 18 123/72 96 Room Air 07/23/17 10:26 68 133/72 07/23/17 07:47 97.3 68 18 133/72 95 Room Air Objective General Appearance: alert - oriented, responsive, weak Turkish speaking female in NAD HEENT: normocephalic, atraumatic, anicteric, mucous membranes moist Neck: supple Respiratory/Chest: lungs clear, normal breath sounds, no respiratory distress Cardiovascular/Chest: normal rate, regular rhythm Abdomen: normal bowel sounds, non tender, soft Extremities: no calf tenderness, normal capillary refill Skin Exam: warm/dry Neurologic: alert, oriented x 3 Musculoskeletal: normal muscle bulk Laboratory Tests 07/23/17 10:25: White Blood Count 10.9H, Red Blood Count 4.32, Hemoglobin 13.9, Hematocrit 37.3 , Mean Corpuscular Volume 86, Mean Corpuscular Hemoglobin 32.1H, Mean Corpuscular Hemoglobin Concent 37.2H, Red Cell Distribution Width 10.4L, Platelet Count 236, Mean Platelet Volume 8.4, Neutrophils (%) (Auto) 65.4, Lymphocytes (%) (Auto) 27.2, Monocytes (%) (Auto) 6.5, Eosinophils (%) (Auto) 0.4, Basophils (%) (Auto) 0.6, Osmolality 246L, Uric Acid 3.0, Thyroid Stimulating Hormone (TSH) 2.460, Free Thyroxine 1.44, Cortisol [Pending] 07/23/17 10:26: Free Triiodothyronine [Pending] 07/23/17 15:04: Urine Color Pale yellow, Urine Appearance Clear, Urine pH 6, Urine Specific [place] 1.015, Urine Protein Negative, Urine Glucose (UA) 1+H, Urine Ketones 3+H , Urine Occult Blood 1+H, Urine Nitrite Negative, Urine Bilirubin Negative, Urine Urobilinogen Normal, Urine Leukocyte Esterase Negative, Urine RBC 2-4H, Urine WBC 0-2, Urine Squamous Epithelial Cells Occasional, Urine Bacteria Occasional, Urine Osmolality 539H, Urine Random Sodium 72 07/23/17 18:30: Sodium Level 118*L, Potassium Level 3.4, Chloride Level 79L, Carbon Dioxide Level 23, Anion Gap 16H, Blood Urea Nitrogen 16, Creatinine 0.8, Estimat Glomerular Filtration Rate , Glucose Level 204H, Calcium Level 8.7 Current Medications Medications (Trade) Dose Ordered Sig/Ethan Route PRN Reason Start Time Stop Time Status Last Admin Dose Admin Acetaminophen (Tylenol) 650 mg Q4H PRN ORAL fever 07/23/17 05:00 08/22/17 04:59 Al Hydroxide/Mg Hydroxide (Mylanta II) 30 ml Q6H PRN ORAL dyspepsia 07/23/17 05:00 08/22/17 04:59 Amlodipine Besylate (Norvasc) 5 mg DAILY ORAL 07/23/17 09:00 08/22/17 08:59 07/23/17 10:26 Atorvastatin Calcium (Lipitor) 10 mg BEDTIME ORAL 8/26/17 21:00 08/22/17 20:59 Bisacodyl (Dulcolax) 5 mg DAILY ORAL 07/23/17 09:00 08/22/17 08:59 07/23/17 10:26 Dextrose (Dextrose 50%) STAT PRN IV Hypoglycemia 07/23/17 05:00 08/22/17 04:59 Heparin Sodium (Porcine) (Heparin 5000 units/ml) 5,000 units EVERY 12 HOURS SUBQ 07/23/17 09:00 08/22/17 08:59 Insulin Aspart (NovoLOG) BEFORE MEALS AND HS SUBQ 07/23/17 06:30 08/22/17 06:29 Lorazepam (Ativan 2mg/ml 1ml) 0.5 mg Q4H PRN IV For Anxiety 07/23/17 05:00 07/30/17 04:59 Morphine Sulfate (Morphine Sulfate) 1 mg Q4H PRN IVP For Pain 07/23/17 05:00 07/30/17 04:59 07/23/17 10:39 Ondansetron HCl (Zofran) 4 mg Q6H PRN IVP Nausea & Vomiting 07/23/17 05:00 08/22/17 04:59 Polyethylene Glycol (Miralax) 17 gm HSPRN PRN ORAL Constipation 07/23/17 05:00 08/22/17 04:59 07/23/17 19:55 Sodium Chloride 1,000 ml @ 50 mls/hr Q20H IV 07/23/17 14:00 08/22/17 13:59 07/23/17 23:49 Zolpidem Tartrate (Ambien) 5 mg HSPRN PRN ORAL Insomnia 07/23/17 05:00 07/30/17 04:59 Armin (Hieu)Jessica NP Jul 24, 2017 07:16
[2017-07-24] MEDS: NovoLOG Insulin Flexpen SUBQ SCH ×4 (07:28→21:00)
[2017-07-24 07:45] VITALS: BP 121/61
[2017-07-24 08:03] LABS: MAGNESIUM 1.6 mg/dL (1.7-2.5); PHOSPHORUS 2.2 mg/dL (2.5-4.8)
[2017-07-24 08:17] LABS: BASOPHILS % (AUTO) 0.6 % (0.0-2.0); EOSINOPHILS % (AUTO) 1.3 % (0.0-3.0); LYMPHOCYTES % (AUTO) 36.1 % (20.0-45.0); MEAN CORPUSCULAR HEMOGLOBIN 31.3 PG (27.0-31.0); MEAN CORPUSCULAR HGB CONC 35.9 G/DL (32.0-36.0); MEAN CORPUSCULAR VOLUME 87 FL (80-99); MEAN PLATELET VOLUME 7.9 FL (6.5-10.1); MONOCYTES % (AUTO) 11.7 % (1.0-10.0); NEUTROPHILS % (AUTO) 50.4 % (45.0-75.0); PLATELET COUNT 198 K/UL (150-450); RED BLOOD COUNT 4.21 M/UL (4.20-5.40); RED CELL DISTRIBUTION WIDTH 10.6 % (11.6-14.8); WHITE BLOOD COUNT 7.3 K/UL (4.8-10.8)
[2017-07-24] MEDS: Bisacodyl EC 5mg tab ORAL SCH (08:18)
[2017-07-24] MEDS: Heparin 5000 units/ml inj SUBQ SCH ×2 (08:18→21:00)
[2017-07-24 08:33] LABS: ALANINE AMINOTRANSFERASE 25 U/L (3-33); ALBUMIN/GLOBULIN RATIO 1.5 (1.0-2.7); ANION GAP 12 (5-15); ASPARTATE AMINO TRANSFERASE 22 U/L (5-40); CALCIUM 8.5 mg/dL (8.6-10.2); CARBON DIOXIDE 25 mEQ/L (20-30); CHLORIDE 83 mEQ/L (98-107); CREATININE 0.6 mg/dL (0.5-0.9); HEMOLYSIS 4; POTASSIUM 3.4 mEQ/L (3.4-4.9); SODIUM 120 mEQ/L (135-145)
[2017-07-24 09:22] LABS: CHOLESTEROL 223 mg/dL (< 200); CHOLESTEROL/HDL RATIO 3.6 (3.3-4.4); LDL CHOLESTEROL (CALC.) 145 mg/dL (60-99)
[2017-07-24] MEDS ORDERED: KCl 10% 20 mEq/15ml liquid ORAL ONE (09:30)
[2017-07-24] MEDS: NS w/KCl 20mEq 1,000 ML IV SCH (09:48)
[2017-07-24] MEDS ORDERED: NaCl 3% 500ml 500 ML IV ONE (11:30)
--- NOTE | 2017-07-24 11:31 | General Progress Note ---
Assessment/Plan Status: unchanged Status Narrative Na 120 Assessment/Plan acute hyponatremia ? SIADH s/p hypokalemia HTN DM Hx of CVA PLAN OF CARE tele 3% NaCL , and lasix IV replace K, mag Phos as needed BP management with CCB, optimize further as needed BS management with SS of insulin DVT prophayxlis Pain management Subjective ROS Limited/Unobtainable: No Allergies: Coded Allergies: PREDNISONE (Verified Allergy, Severe, REDNESS, SWELLING, 03/06/14) PENICILLINS (Verified Allergy, Intermediate, 03/18/17) Objective Last 24 Hour Vital Signs Date Time Temp Pulse Resp B/P (MAP) Pulse Ox O2 Delivery O2 Flow Rate FiO2 07/24/17 08:18 78 121/61 07/24/17 08:00 85 07/24/17 07:45 97.3 78 18 121/61 96 Room Air 07/24/17 03:59 70 07/24/17 03:46 98.6 68 19 121/54 97 Room Air 07/23/17 23:41 98.2 72 18 138/55 96 Room Air 07/23/17 23:33 77 07/23/17 19:43 98.8 76 19 149/75 94 Room Air 07/23/17 19:23 73 07/23/17 16:00 73 07/23/17 15:47 97.7 71 18 123/60 95 Room Air 07/23/17 12:00 73 Intake and Output 07/24/17 07/25/17 19:00 07:00 Intake Total 340 ml Balance 340 ml Intake Oral 340 ml # Voids 2 Laboratory Tests 07/23/17 15:04: Urine Color Pale yellow, Urine Appearance Clear, Urine pH 6, Urine Specific [place] 1.015, Urine Protein Negative, Urine Glucose (UA) 1+H, Urine Ketones 3+H , Urine Occult Blood 1+H, Urine Nitrite Negative, Urine Bilirubin Negative, Urine Urobilinogen Normal, Urine Leukocyte Esterase Negative, Urine RBC 2-4H, Urine WBC 0-2, Urine Squamous Epithelial Cells Occasional, Urine Bacteria Occasional, Urine Osmolality 539H, Urine Random Sodium 72 07/23/17 18:30: Sodium Level 118*L, Potassium Level 3.4, Chloride Level 79L, Carbon Dioxide Level 23, Anion Gap 16H, Blood Urea Nitrogen 16, Creatinine 0.8, Estimat Glomerular Filtration Rate , Glucose Level 204H, Calcium Level 8.7 07/24/17 06:50: Sodium Level 120L, Potassium Level 3.4, Chloride Level 83L, Carbon Dioxide Level 25, Anion Gap 12, Blood Urea Nitrogen 14, Creatinine 0.6, Estimat Glomerular Filtration Rate , Glucose Level 150H, Calcium Level 8.5L, White Blood Count 7.3, Red Blood Count 4.21, Hemoglobin 13.2, Hematocrit 36.7L, Mean Corpuscular Volume 87, Mean Corpuscular Hemoglobin 31.3H, Mean Corpuscular Hemoglobin Concent 35.9, Red Cell Distribution Width 10.6L, Platelet Count 198, Mean Platelet Volume 7.9, Neutrophils (%) (Auto) 50.4, Lymphocytes (%) (Auto) 36.1, Monocytes (%) (Auto) 11.7H, Eosinophils (%) (Auto) 1.3, Basophils (%) ( Auto) 0.6, Uric Acid 3.0, Phosphorus Level 2.2L, Magnesium Level 1.6L, Total Bilirubin 0.9, Aspartate Amino Transf (AST/SGOT) 22, Alanine Aminotransferase ( ALT/SGPT) 25, Alkaline Phosphatase 75, Total Protein 6.0L, Albumin 3.6, Globulin 2.4, Albumin/Globulin Ratio 1.5, Triglycerides Level 78, Cholesterol Level 223H, LDL Cholesterol 145H, HDL Cholesterol 62H, Cholesterol/HDL Ratio 3.6 Height (Feet): 5 Height (Inches): 6.00 Weight (Pounds): 170 General Appearance: no apparent distress Cardiovascular: normal rate Respiratory/Chest: lungs clear Objective no change in PE JAYJAY LAUGHLIN Jul 24, 2017 11:31
[2017-07-24 11:34] VITALS: BP 136/57
[2017-07-24] MEDS ORDERED: Potassium Phosphate 30 MM in NS 275 ML IV ONE (12:00)
--- NOTE | 2017-07-24 13:14 | Internal Med Progress Note ---
Subjective Date of Service: Jul 24, 2017 Physician Name Kennedy,Kaila Attending Physician Redd Goodwin MD Current Medications Medications (Trade) Dose Ordered Sig/Ethan Route PRN Reason Start Time Stop Time Status Last Admin Dose Admin Acetaminophen (Tylenol) 650 mg Q4H PRN ORAL fever 07/23/17 05:00 08/22/17 04:59 Amlodipine Besylate (Norvasc) 5 mg DAILY ORAL 07/23/17 09:00 08/22/17 08:59 07/24/17 08:18 Atorvastatin Calcium (Lipitor) 10 mg BEDTIME ORAL 07/23/17 21:00 08/22/17 20:59 Bisacodyl (Dulcolax) 5 mg DAILY ORAL 07/23/17 09:00 08/22/17 08:59 07/24/17 08:18 Dextrose (Dextrose 50%) STAT PRN IV Hypoglycemia 07/23/17 05:00 08/22/17 04:59 Furosemide (Lasix) 10 mg Q6HR IV 07/24/17 12:00 08/23/17 11:59 07/24/17 12:26 Heparin Sodium (Porcine) (Heparin 5000 units/ml) 5,000 units EVERY 12 HOURS SUBQ 07/23/17 09:00 08/22/17 08:59 Insulin Aspart (NovoLOG) BEFORE MEALS AND HS SUBQ 07/23/17 06:30 08/22/17 06:29 Lorazepam (Ativan 2mg/ml 1ml) 0.5 mg Q4H PRN IV For Anxiety 07/23/17 05:00 07/30/17 04:59 Morphine Sulfate (Morphine Sulfate) 1 mg Q4H PRN IVP For Pain 07/23/17 05:00 07/30/17 04:59 07/23/17 10:39 Ondansetron HCl (Zofran) 4 mg Q6H PRN IVP Nausea & Vomiting 07/23/17 05:00 08/22/17 04:59 Polyethylene Glycol (Miralax) 17 gm HSPRN PRN ORAL Constipation 07/23/17 05:00 08/22/17 04:59 07/23/17 19:55 Potassium Phosphate 30 mm/ Sodium Chloride 285 ml @ 47.5 mls/hr ONCE ONCE IV 07/24/17 12:00 07/24/17 17:59 07/24/17 12:25 Sodium Chloride 500 ml @ 30 mls/hr ONCE ONCE IV 07/24/17 11:30 07/25/17 04:09 07/24/17 11:13 Zolpidem Tartrate (Ambien) 5 mg HSPRN PRN ORAL Insomnia 07/23/17 05:00 07/30/17 04:59 Allergies: Coded Allergies: PREDNISONE (Verified Allergy, Severe, REDNESS, SWELLING, 03/06/14) PENICILLINS (Verified Allergy, Intermediate, 03/18/17) ROS Limited/Unobtainable: No Constitutional: Reports: no symptoms HEENT: Reports: no symptoms Cardiovascular: Reports: no symptoms Respiratory: Reports: no symptoms Gastrointestinal/Abdominal: Reports: no symptoms Genitourinary: Reports: no symptoms Neurologic/Psychiatric: Reports: no symptoms Subjective 81 YO F admitted with nausea and vomiting. Now hyponatremia. Cover for Int Med -Dr Goodwin. Objective Last Vital Signs Date Time Temp Pulse Resp B/P (MAP) Pulse Ox O2 Delivery O2 Flow Rate FiO2 07/24/17 11:34 97.7 73 18 136/57 95 Room Air General Appearance: WD/WN, no apparent distress, alert EENT: PERRL/EOMI, normal ENT inspection, TMs normal Neck: non-tender, normal alignment, supple Cardiovascular: normal peripheral pulses, normal rate, regular rhythm, no gallop/murmur, no JVD Respiratory/Chest: chest wall non-tender, lungs clear, normal breath sounds, no respiratory distress, no accessory muscle use Abdomen: normal bowel sounds, non tender, soft, no organomegaly, no mass Extremities: normal range of motion Neurologic: 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 news producer II-XII grossly normal Laboratory Tests Test 07/23/17 15:04 07/23/17 18:30 07/24/17 06:50 Urine Color Pale yellow Urine Appearance Clear Urine pH 6 (4.5-8.0) Urine Specific [place] 1.015 (1.005-1.035) Urine Protein Negative (NEGATIVE) Urine Glucose (UA) 1+ (NEGATIVE) H Urine Ketones 3+ (NEGATIVE) H Urine Occult Blood 1+ (NEGATIVE) H Urine Nitrite Negative (NEGATIVE) Urine Bilirubin Negative (NEGATIVE) Urine Urobilinogen Normal MG/DL (0.0-1.0) Urine Leukocyte Esterase Negative (NEGATIVE) Urine RBC 2-4 /HPF (0 - 2) H Urine WBC 0-2 /HPF (0 - 2) Urine Squamous Epithelial Cells Occasional /LPF Urine Bacteria Occasional /HPF (NONE) Urine Osmolality 539 mOsm/kg (429-449) H Urine Random Sodium 72 mmol/L Sodium Level 118 mEQ/L (135-145) *L 120 mEQ/L (135-145) L Potassium Level 3.4 mEQ/L (3.4-4.9) 3.4 mEQ/L (3.4-4.9) Chloride Level 79 mEQ/L (98-107) L 83 mEQ/L (98-107) L Carbon Dioxide Level 23 mEQ/L (20-30) 25 mEQ/L (20-30) Anion Gap 16 (5-15) H 12 (5-15) Blood Urea Nitrogen 16 mg/dL (7-23) 14 mg/dL (7-23) Creatinine 0.8 mg/dL (0.5-0.9) 0.6 mg/dL (0.5-0.9) Estimat Glomerular Filtration Rate mL/min (>60) mL/min (>60) Glucose Level 204 mg/dL (74-106) H 150 mg/dL (74-106) H Calcium Level 8.7 mg/dL (8.6-10.2) 8.5 mg/dL (8.6-10.2) L White Blood Count 7.3 K/UL (4.8-10.8) Red Blood Count 4.21 M/UL (4.20-5.40) Hemoglobin 13.2 G/DL (12.0-16.0) Hematocrit 36.7 % (37.0-47.0) L Mean Corpuscular Volume 87 FL (80-99) Mean Corpuscular Hemoglobin 31.3 PG (27.0-31.0) H Mean Corpuscular Hemoglobin Concent 35.9 G/DL (32.0-36.0) Red Cell Distribution Width 10.6 % (11.6-14.8) L Platelet Count 198 K/UL (150-450) Mean Platelet Volume 7.9 FL (6.5-10.1) Neutrophils (%) (Auto) 50.4 % (45.0-75.0) Lymphocytes (%) (Auto) 36.1 % (20.0-45.0) Monocytes (%) (Auto) 11.7 % (1.0-10.0) H Eosinophils (%) (Auto) 1.3 % (0.0-3.0) Basophils (%) (Auto) 0.6 % (0.0-2.0) Uric Acid 3.0 mg/dL (3.0-7.5) Phosphorus Level 2.2 mg/dL (2.5-4.8) L Magnesium Level 1.6 mg/dL (1.7-2.5) L Total Bilirubin 0.9 mg/dL (0.0-1.2) Aspartate Amino Transf (AST/SGOT) 22 U/L (5-40) Alanine Aminotransferase (ALT/SGPT) 25 U/L (3-33) Alkaline Phosphatase 75 U/L (35-104) Total Protein 6.0 g/dL (6.6-8.7) L Albumin 3.6 g/dL (3.5-5.2) Globulin 2.4 g/dL Albumin/Globulin Ratio 1.5 (1.0-2.7) Triglycerides Level 78 mg/dL (< 150) Cholesterol Level 223 mg/dL (< 200) H LDL Cholesterol 145 mg/dL (60-99) H HDL Cholesterol 62 mg/dL (> 60) H Cholesterol/HDL Ratio 3.6 (3.3-4.4) Intake and Output 07/24/17 07/25/17 19:00 07:00 Intake Total 340 ml Balance 340 ml Intake Oral 340 ml # Voids 2 Assessment/Plan Problem List: (1) Headache (2) Diabetes mellitus Assessment & Plan: Continue novolog sliding scale. (3) Hypercholesteremia (4) Hyponatremia Assessment & Plan: See nephrology note. ?SIADH? workup in progress. Continue hypertonic saline (5) Hypokalemia (6) History of CVA (cerebrovascular accident) (7) Brain aneurysm (8) HTN (hypertension) Assessment & Plan: Continue norvasc Status: unchanged KAILA KENNEDY Jul 24, 2017 13:14
[2017-07-24 15:17] VITALS: BP 129/60
[2017-07-24 19:43] VITALS: BP 136/70
[2017-07-24] MEDS ORDERED: Atorvastatin 20mg tab ORAL SCH (21:00)
[2017-07-25 00:04] VITALS: BP 131/68
[2017-07-25 03:55] VITALS: BP 132/57
[2017-07-25] MEDS: NovoLOG Insulin Flexpen SUBQ SCH ×3 (06:30→12:17)
[2017-07-25 07:22] LABS: BASOPHILS % (AUTO) 0.7 % (0.0-2.0); EOSINOPHILS % (AUTO) 0.8 % (0.0-3.0); LYMPHOCYTES % (AUTO) 40.1 % (20.0-45.0); MEAN CORPUSCULAR HEMOGLOBIN 33.5 PG (27.0-31.0); MEAN CORPUSCULAR HGB CONC 37.8 G/DL (32.0-36.0); MEAN CORPUSCULAR VOLUME 89 FL (80-99); MONOCYTES % (AUTO) 10.3 % (1.0-10.0); NEUTROPHILS % (AUTO) 48.1 % (45.0-75.0); PLATELET COUNT 216 K/UL (150-450); RED BLOOD COUNT 3.88 M/UL (4.20-5.40); RED CELL DISTRIBUTION WIDTH 10.9 % (11.6-14.8); WHITE BLOOD COUNT 8.5 K/UL (4.8-10.8)
[2017-07-25 07:35] LABS: HEMOGLOBIN A1C 6.3 % (< 6.0)
[2017-07-25 07:40] LABS: ALANINE AMINOTRANSFERASE 25 U/L (3-33); ALBUMIN/GLOBULIN RATIO 1.7 (1.0-2.7); ANION GAP 12 (5-15); ASPARTATE AMINO TRANSFERASE 19 U/L (5-40); CALCIUM 8.5 mg/dL (8.6-10.2); CARBON DIOXIDE 26 mEQ/L (20-30); CHLORIDE 90 mEQ/L (98-107); CREATININE 0.6 mg/dL (0.5-0.9); HEMOLYSIS 6; MAGNESIUM 1.9 mg/dL (1.7-2.5); PHOSPHORUS 2.1 mg/dL (2.5-4.8); POTASSIUM 2.9 mEQ/L (3.4-4.9); SODIUM 128 mEQ/L (135-145); TOTAL PROTEIN 6.3 g/dL (6.6-8.7); URIC ACID 3.2 mg/dL (3.0-7.5)
[2017-07-25 08:00] VITALS: BP 136/67
[2017-07-25] MEDS: Heparin 5000 units/ml inj SUBQ SCH (09:00)
[2017-07-25] MEDS: Bisacodyl EC 5mg tab ORAL SCH (09:04)
--- NOTE | 2017-07-25 10:03 | Internal Med Progress Note ---
Subjective Date of Service: Jul 25, 2017 Physician Name Kaila Kennedy Attending Physician Redd Goodwin MD Current Medications Medications (Trade) Dose Ordered Sig/Ethan Route PRN Reason Start Time Stop Time Status Last Admin Dose Admin Acetaminophen (Tylenol) 650 mg Q4H PRN ORAL fever 07/23/17 05:00 08/22/17 04:59 Amlodipine Besylate (Norvasc) 5 mg DAILY ORAL 07/23/17 09:00 08/22/17 08:59 07/25/17 09:04 Atorvastatin Calcium (Lipitor) 20 mg BEDTIME ORAL 07/24/17 21:00 08/23/17 20:59 07/24/17 20:48 Bisacodyl (Dulcolax) 5 mg DAILY ORAL 07/23/17 09:00 08/22/17 08:59 07/25/17 09:04 Dextrose (Dextrose 50%) STAT PRN IV Hypoglycemia 07/23/17 05:00 08/22/17 04:59 Furosemide (Lasix) 10 mg Q6HR IV 07/24/17 12:00 08/23/17 11:59 07/24/17 23:36 Heparin Sodium (Porcine) (Heparin 5000 units/ml) 5,000 units EVERY 12 HOURS SUBQ 07/23/17 09:00 08/22/17 08:59 Insulin Aspart (NovoLOG) BEFORE MEALS AND HS SUBQ 07/23/17 06:30 08/22/17 06:29 Lorazepam (Ativan 2mg/ml 1ml) 0.5 mg Q4H PRN IV For Anxiety 07/23/17 05:00 07/30/17 04:59 Morphine Sulfate (Morphine Sulfate) 1 mg Q4H PRN IVP For Pain 07/23/17 05:00 07/30/17 04:59 07/23/17 10:39 Ondansetron HCl (Zofran) 4 mg Q6H PRN IVP Nausea & Vomiting 07/23/17 05:00 08/22/17 04:59 Polyethylene Glycol (Miralax) 17 gm HSPRN PRN ORAL Constipation 07/23/17 05:00 08/22/17 04:59 07/23/17 19:55 Potassium Chloride (K-Dur) 40 meq ONCE ONCE ORAL 07/25/17 17:00 07/25/17 17:01 Zolpidem Tartrate (Ambien) 5 mg HSPRN PRN ORAL Insomnia 07/23/17 05:00 07/30/17 04:59 Allergies: Coded Allergies: PREDNISONE (Verified Allergy, Severe, REDNESS, SWELLING, 03/06/14) PENICILLINS (Verified Allergy, Intermediate, 03/18/17) ROS Limited/Unobtainable: No Constitutional: Reports: no symptoms HEENT: Reports: no symptoms Cardiovascular: Reports: no symptoms Respiratory: Reports: no symptoms Gastrointestinal/Abdominal: Reports: no symptoms Genitourinary: Reports: no symptoms Neurologic/Psychiatric: Reports: no symptoms Subjective 81 YO F admitted with nausea and vomiting. Now hyponatremia. Cover for Int [place] -Dr Goodwin. Objective Last Vital Signs Date Time Temp Pulse Resp B/P (MAP) Pulse Ox O2 Delivery O2 Flow Rate FiO2 07/25/17 09:04 79 136/67 07/25/17 08:00 96.8 20 96 Room Air Laboratory Tests Test 07/25/17 04:35 07/25/17 06:59 White Blood Count 8.5 K/UL (4.8-10.8) Red Blood Count 3.88 M/UL (4.20-5.40) L Hemoglobin 13.0 G/DL (12.0-16.0) Hematocrit 34.4 % (37.0-47.0) L Mean Corpuscular Volume 89 FL (80-99) Mean Corpuscular Hemoglobin 33.5 PG (27.0-31.0) H Mean Corpuscular Hemoglobin Concent 37.8 G/DL (32.0-36.0) H Red Cell Distribution Width 10.9 % (11.6-14.8) L Platelet Count 216 K/UL (150-450) Mean Platelet Volume 8.0 FL (6.5-10.1) Neutrophils (%) (Auto) 48.1 % (45.0-75.0) Lymphocytes (%) (Auto) 40.1 % (20.0-45.0) Monocytes (%) (Auto) 10.3 % (1.0-10.0) H Eosinophils (%) (Auto) 0.8 % (0.0-3.0) Basophils (%) (Auto) 0.7 % (0.0-2.0) Sodium Level 128 mEQ/L (135-145) L Potassium Level 2.9 mEQ/L (3.4-4.9) L Chloride Level 90 mEQ/L (98-107) L Carbon Dioxide Level 26 mEQ/L (20-30) Anion Gap 12 (5-15) Blood Urea Nitrogen 12 mg/dL (7-23) Creatinine 0.6 mg/dL (0.5-0.9) Estimat Glomerular Filtration Rate mL/min (>60) Glucose Level 153 mg/dL (74-106) H Hemoglobin A1c 6.3 % (< 6.0) H Uric Acid 3.2 mg/dL (3.0-7.5) Calcium Level 8.5 mg/dL (8.6-10.2) L Phosphorus Level 2.1 mg/dL (2.5-4.8) L Magnesium Level 1.9 mg/dL (1.7-2.5) Total Bilirubin 0.6 mg/dL (0.0-1.2) Aspartate Amino Transf (AST/SGOT) 19 U/L (5-40) Alanine Aminotransferase (ALT/SGPT) 25 U/L (3-33) Alkaline Phosphatase 76 U/L (35-104) Total Protein 6.3 g/dL (6.6-8.7) L Albumin 4.0 g/dL (3.5-5.2) Globulin 2.3 g/dL Albumin/Globulin Ratio 1.7 (1.0-2.7) Cortisol Pending Objective General Appearance: WD/WN, no apparent distress, alert EENT: PERRL/EOMI, normal ENT inspection, TMs normal Neck: non-tender, normal alignment, supple Cardiovascular: normal peripheral pulses, normal rate, regular rhythm, no gallop/murmur, no JVD Respiratory/Chest: chest wall non-tender, lungs clear, normal breath sounds, no respiratory distress, no accessory muscle use Abdomen: normal bowel sounds, non tender, soft, no organomegaly, no mass Extremities: normal range of motion Neurologic: 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 (2) Diabetes mellitus Assessment & Plan: Continue novolog sliding scale. (3) Hypercholesteremia (4) Hyponatremia Assessment & Plan: Improving; See nephrology note. ?SIADH? workup in progress. Continue hypertonic saline (5) Hypokalemia Assessment & Plan: Replace potassium. (6) History of CVA (cerebrovascular accident) (7) Brain aneurysm (8) HTN (hypertension) Assessment & Plan[facility] Status: progressing KAILA KENNEDY Jul 25, 2017 10:03
--- NOTE | 2017-07-25 11:25 | General Progress Note ---
Assessment/Plan Status: stable, other - refusing meds per RN Status Narrative Na higher Assessment/Plan acute hyponatremia ? SIADH s/p hypokalemia HTN DM Hx of CVA PLAN OF CARE 3% NaCL , and lasix IV replace K, mag Phos as needed BP management BS management with SS of insulin DVT prophayxlis Pain management [place]yan interpertor assisted with patient compliance Subjective ROS Limited/Unobtainable: No Constitutional: Reports: malaise Allergies: Coded Allergies: PREDNISONE (Verified Allergy, Severe, REDNESS, SWELLING, 03/06/14) PENICILLINS (Verified Allergy, Intermediate, 03/18/17) Objective Last 24 Hour Vital Signs Date Time Temp Pulse Resp B/P (MAP) Pulse Ox O2 Delivery O2 Flow Rate FiO2 07/25/17 09:04 79 136/67 07/25/17 08:00 96.8 79 20 136/67 96 Room Air 07/25/17 03:55 98.8 68 19 132/57 98 Room Air 07/25/17 03:49 77 07/25/17 00:04 98.3 72 18 131/68 95 Room Air 07/24/17 23:59 82 07/24/17 19:59 78 07/24/17 19:43 98.1 77 19 136/70 97 Room Air 07/24/17 16:00 79 07/24/17 15:17 96.4 66 18 129/60 96 Room Air 07/24/17 12:00 80 07/24/17 11:34 97.7 73 18 136/57 95 Room Air Laboratory Tests 07/25/17 04:35: White Blood Count 8.5, Red Blood Count 3.88L, Hemoglobin 13.0, Hematocrit 34.4L , Mean Corpuscular Volume 89, Mean Corpuscular Hemoglobin 33.5H, Mean Corpuscular Hemoglobin Concent 37.8H, Red Cell Distribution Width 10.9L, Platelet Count 216, Mean Platelet Volume 8.0, Neutrophils (%) (Auto) 48.1, Lymphocytes (%) (Auto) 40.1, Monocytes (%) (Auto) 10.3H, Eosinophils (%) (Auto) 0.8, Basophils (%) (Auto) 0.7, Sodium Level 128L, Potassium Level 2.9L, Chloride Level 90L, Carbon Dioxide Level 26, Anion Gap 12, Blood Urea Nitrogen 12, Creatinine 0.6, Estimat Glomerular Filtration Rate , Glucose Level 153H, Hemoglobin A1c 6.3H, Uric Acid 3.2, Calcium Level 8.5L, Phosphorus Level 2.1L, Magnesium Level 1.9, Total Bilirubin 0.6, Aspartate Amino Transf (AST/SGOT) 19, Alanine Aminotransferase (ALT/SGPT) 25, Alkaline Phosphatase 76, Total Protein 6.3L, Albumin 4.0, Globulin 2.3, Albumin/Globulin Ratio 1.7 07/25/17 06:59: Cortisol [Pending] Height (Feet): 5 Height (Inches): 6.00 Weight (Pounds): 170 General Appearance: no apparent distress, other - refusing meds ! Cardiovascular: regular rhythm Respiratory/Chest: decreased breath sounds Abdomen: soft Objective no change in PE JAYJAY LAUGHLIN Jul 25, 2017 11:25
[2017-07-25] MEDS ORDERED: NaCl 3% 500ml 500 ML IV ONE (11:30)
[2017-07-25 11:43] VITALS: BP 149/72
--- NOTE | 2017-07-25 12:30 | Pulmonology Progress Note ---
Assessment/Plan Problems: (1) Hyponatremia (2) Diabetes mellitus (3) HTN (hypertension) (4) Osteoarthritis Assessment/Plan Na is 128 hyponatremia w/u in progress symptomatic treatment off 3% continue lasix 10 mg q6 med/surg Subjective ROS Limited/Unobtainable: No Constitutional: Reports: no symptoms HEENT: Repors: no symptoms Respiratory: Reports: no symptoms Cardiovascular: Reports: no symptoms Gastrointestinal/Abdominal: Reports: no symptoms Allergies: Coded Allergies: PREDNISONE (Verified Allergy, Severe, REDNESS, SWELLING, 03/06/14) PENICILLINS (Verified Allergy, Intermediate, 03/18/17) Objective Last 24 Hour Vital Signs Date Time Temp Pulse Resp B/P (MAP) Pulse Ox O2 Delivery O2 Flow Rate FiO2 07/25/17 11:43 97.3 70 20 149/72 97 Room Air 07/25/17 09:04 79 136/67 07/25/17 08:00 99 07/25/17 08:00 96.8 79 20 136/67 96 Room Air 07/25/17 03:55 98.8 68 19 132/57 98 Room Air 07/25/17 03:49 77 07/25/17 00:04 98.3 72 18 131/68 95 Room Air 07/24/17 23:59 82 07/24/17 19:59 78 07/24/17 19:43 98.1 77 19 136/70 97 Room Air 07/24/17 16:00 79 07/24/17 15:17 96.4 66 18 129/60 96 Room Air General Appearance: WD/WN, no acute distress HEENT: normocephalic, atraumatic Respiratory/Chest: chest wall non-tender, lungs clear Breasts: no masses Cardiovascular: normal peripheral pulses, normal rate Abdomen: normal bowel sounds, soft, non tender Genitourinary: normal external genitalia Extremities: no cyanosis, no clubbing Skin: no lesions Neurologic/Psychiatric: manager core II-XII grossly normal Lymphatic: no neck adenopathy Musculoskeletal: normal muscle bulk Laboratory Tests 07/25/17 04:35: White Blood Count 8.5, Red Blood Count 3.88L, Hemoglobin 13.0, Hematocrit 34.4L , Mean Corpuscular Volume 89, Mean Corpuscular Hemoglobin 33.5H, Mean Corpuscular Hemoglobin Concent 37.8H, Red Cell Distribution Width 10.9L, Platelet Count 216, Mean Platelet Volume 8.0, Neutrophils (%) (Auto) 48.1, Lymphocytes (%) (Auto) 40.1, Monocytes (%) (Auto) 10.3H, Eosinophils (%) (Auto) 0.8, Basophils (%) (Auto) 0.7, Sodium Level 128L, Potassium Level 2.9L, Chloride Level 90L, Carbon Dioxide Level 26, Anion Gap 12, Blood Urea Nitrogen 12, Creatinine 0.6, Estimat Glomerular Filtration Rate , Glucose Level 153H, Hemoglobin A1c 6.3H, Uric Acid 3.2, Calcium Level 8.5L, Phosphorus Level 2.1L, Magnesium Level 1.9, Total Bilirubin 0.6, Aspartate Amino Transf (AST/SGOT) 19, Alanine Aminotransferase (ALT/SGPT) 25, Alkaline Phosphatase 76, Total Protein 6.3L, Albumin 4.0, Globulin 2.3, Albumin/Globulin Ratio 1.7 07/25/17 06:59: Cortisol [Pending] Current Medications Medications (Trade) Dose Ordered Sig/Ethan Route PRN Reason Start Time Stop Time Status Last Admin Dose Admin Acetaminophen (Tylenol) 650 mg Q4H PRN ORAL fever 07/23/17 05:00 08/22/17 04:59 Amlodipine Besylate (Norvasc) 5 mg DAILY ORAL 07/23/17 09:00 08/22/17 08:59 07/25/17 09:04 Atorvastatin Calcium (Lipitor) 20 mg BEDTIME ORAL 07/24/17 21:00 08/23/17 20:59 07/24/17 20:48 Bisacodyl (Dulcolax) 5 mg DAILY ORAL 07/23/17 09:00 08/22/17 08:59 07/25/17 09:04 Dextrose (Dextrose 50%) STAT PRN IV Hypoglycemia 07/23/17 05:00 08/22/17 04:59 Furosemide (Lasix) 10 mg Q6HR IV 07/24/17 12:00 08/23/17 11:59 07/25/17 12:15 Heparin Sodium (Porcine) (Heparin 5000 units/ml) 5,000 units EVERY 12 HOURS SUBQ 07/23/17 09:00 08/22/17 08:59 Insulin Aspart (NovoLOG) BEFORE MEALS AND HS SUBQ 07/23/17 06:30 08/22/17 06:29 07/25/17 12:17 Lorazepam (Ativan 2mg/ml 1ml) 0.5 mg Q4H PRN IV For Anxiety 07/23/17 05:00 07/30/17 04:59 Morphine Sulfate (Morphine Sulfate) 1 mg Q4H PRN IVP For Pain 07/23/17 05:00 07/30/17 04:59 07/23/17 10:39 Ondansetron HCl (Zofran) 4 mg Q6H PRN IVP Nausea & Vomiting 07/23/17 05:00 08/22/17 04:59 Phosphorus (Phospha 250 Neutral) 500 mg THREE TIMES A DAY ORAL 07/25/17 13:00 08/24/17 12:59 07/25/17 12:15 Polyethylene Glycol (Miralax) 17 gm HSPRN PRN ORAL Constipation 07/23/17 05:00 08/22/17 04:59 07/23/17 19:55 Potassium Chloride (K-Dur) 40 meq ONCE ONCE ORAL 07/25/17 17:00 07/25/17 17:01 Sodium Chloride 500 ml @ 30 mls/hr ONCE ONCE IV 07/25/17 11:30 07/26/17 04:09 07/25/17 12:14 Zolpidem Tartrate (Ambien) 5 mg HSPRN PRN ORAL Insomnia 07/23/17 05:00 07/30/17 04:59 AUDIE TAYLOR Jul 25, 2017 12:30
[2017-07-25] MEDS ORDERED: Phospha 250 Neutral tab ORAL SCH (13:00)
[2017-07-25 14:14] LABS: APPEARANCE,URINE CLEAR; KETONES,URINE NEGATIVE (NEGATIVE); LEUKOCYTE ESTERASE ,URINE 1+ (NEGATIVE); NITRITE,URINE NEGATIVE (NEGATIVE); PH,URINE 7 (4.5-8.0); PROTEIN,URINE NEGATIVE (NEGATIVE); UROBILINOGEN,URINE NORMAL MG/DL (0.0-1.0)
[2017-07-25 14:30] LABS: BACTERIA,URINE OCCASIONAL /HPF; RBC,URINE 0-2 /HPF (0 - 2); SQUAMOUS EPITHELIAL CELL,UR OCCASIONAL /LPF (NONE/OCC); WBC,URINE 0-2 /HPF (0 - 2)
--- NOTE | 2017-07-25 14:44 | Diagnostic Imaging Report ---
Indication:Elevated Bun and Creatinine. Technique: Grayscale and duplex Doppler imaging of the kidneys performed. Comparison: None Findings: There is minimal pelvocaliectasis demonstrated within the kidneys bilaterally. Contour and echogenicity the kidneys are within normal limits. The kidneys are normal in size. The IVC is unremarkable in appearance. The urinary bladder is mildly distended. We asked the patient urinate but she was unable to do so. Both kidneys measure between 9 and 10 cm in length. Impression: Minimal bilateral hydronephrosis. This may be associated with mild bladder distention. Patient was unable to urinate to empty the bladder.
[2017-07-25 16:00] VITALS: BP 149/65
--- NOTE | 2017-07-26 12:37 | Discharge Summary ---
Discharge Summary Hospital Course Date of Admission Jul 23, 2017 at 00:46 Date of Discharge Jul 25, 2017 at 16:10 Admitting Diagnosis Hyponatremia HPI Montserrat Guerra is a 81 year old female who was admitted on Jul 23, 2017 at 00:46 for Hyponatremia Hospital Course dc summary #[id number] Discharge Discharge Disposition Patient signed AMA Discharge Diagnoses: Armin (Raudelpiper),Jessica SIMMONS Jul 26, 2017 12:37
--- NOTE | 2017-07-26 15:37 | Cardiology Report ---
APPROVED REPORT EKG Measurement Heart [id number] NC 182P [id number] Normal sinus rhythm Inferior infarct, age undetermined Abnormal ECG
--- NOTE | 2017-07-27 06:46 | Discharge Summary 2 SIG ---
DATE OF ADMISSION: 07/23/2017 DATE OF DISCHARGE: 07/25/2017 The patient is admitted under Dr. Goodwin. 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 No reported fever or chills. No diarrhea. No abdominal pain. Workup in the ED revealed sodium 111 and potassium 2.8. Chest x-ray revealed no acute cardiopulmonary disease. CT of the head revealed no acute intracranial pathology. Troponin was negative. EKG revealed normal sinus rhythm. The patient was given one liter of fluid in the emergency department and was admitted for further management. ADMITTING DIAGNOSES: 1. Acute hyponatremia, possibly due to dehydration. 2. Rule out syndrome of inappropriate antidiuretic hormone secretion. 3. Acute hypokalemia. 4. Nausea and vomiting, likely due to the acute hyponatremia. 5. Headache. 6. Hypertension. 7. Diabetes. 8. History of cerebrovascular accident. 9. Osteoarthritis. HOSPITAL COURSE: The patient was admitted. The patient was started on telemetry floor. Sodium initially 111. The patient was given 3% normal saline x2 along with Lasix IV every six hours. Sodium up to 128 in two days. Hyponatremia workup initiated. Nephrology evaluation was requested. Radial Drill Press Operator seen and evaluated the patient and closely followed the patient with the renal parameters and electrolytes. Electrolytes were replaced as needed. Blood pressure was managed with the current medication regimen of calcium-channel tamar, optimized further as needed. Continue statin. Blood sugar was managed with sliding scale of insulin. Lipid panel revealed elevated LDH 145 and total cholesterol is 223. Continue statin. Blood sugar was managed with sliding scale of insulin. Potassium was replaced along with other electrolytes. DVT prophylaxis provided. Pain management provided. However, on 07/25/2017, the patient's daughter was in the room and stated that she wants to take her mother to the primary care provider and she does not want her to stay in the hospital. Risks and consequences of signing against medical advice were discussed with the patient and her daughter. Daughter refused for her mother to stay in the hospital and stated that she will take her to her own primary doctor and the patient signed against medical advice form and left. FINAL DIAGNOSES: 1. Acute hyponatremia, possibly dehydration, possible syndrome of inappropriate antidiuretic hormone secretion. 2. Diabetes mellitus. 3. Hypertension. 4. Osteoarthritis. 5. Electrolyte imbalances (hypokalemia, hypophosphatemia, and hypomagnesemia). 6. Hyperlipidemia. DISCHARGE MEDICATIONS: See medication reconciliation list. DISCHARGE INSTRUCTIONS: The patient is discharged home. Follow up with the primary medical doctor. Redd Goodwin M.D. I have been assigned to dictate discharge summary on this account and I was not involved in the patient's management. Jessica templetonleoncio N.PPedro DR: RAMONA JOB#: [id number] CC:
== END 2017-07-25 16:10 | disposition left against medical advice (07) | DRG 424 ==
LOC: EDBD 22:34 → EMR 22:50 → 2E 07-23 00:46 → EDBEDREQ 07-23 01:39
DX: E22.2 Syndrome of inappropriate secretion of antidiuretic hormone (principal); E86.0 Dehydration; E11.9 Type 2 diabetes mellitus without complications; E83.42 Hypomagnesemia; I10 Essential (primary) hypertension; E87.6 Hypokalemia; Z79.84 Long term (current) use of oral hypoglycemic drugs; Z86.73 Personal history of transient ischemic attack (TIA), and cerebral infarction without residual deficits; E78.00 Pure hypercholesterolemia, unspecified; Z88.0 Allergy status to penicillin; Z88.8 Allergy status to other drugs, medicaments and biological substances; R11.2 Nausea with vomiting, unspecified; R51 Headache; M19.90 Unspecified osteoarthritis, unspecified site; E83.39 Other disorders of phosphorus metabolism; E78.5 Hyperlipidemia, unspecified
CPT/HCPCS: 36415; 70450; 71010; 76775; 80048; 80053; 80061; 81001; 81003; 82248; 82533; 82962; 83036; 83735; 83930; 83935; 84100; 84300; 84439; 84443; 84481; 84484; 84550; 85025; 85610; 85730; 87086; 87181; 93005; C9399; J1815; J2405; J8499

== ENCOUNTER 2019-05-28 19:59 | Inpatient (IN) | payer MEDICARE, OTHER ==
[~2019-05-28] VITALS: Ht 165.1 cm; Wt 75.8 kg
[~2019-05-28 19:59] MED LIST changes: +AMBIEN5 MG ORAL; +CAPTOPRIL25 M1 PO; +COREG3.125 MG ORAL; +JANUMET 50-5001 EACH ORAL; +NORVASC5 MG ORAL; +OLMESARTAN MEDO20 MG PO; +TIZANIDINE HCL4 M2 ORAL
[2019-05-28 20:14] VITALS: BP 166/68
--- NOTE | 2019-05-28 20:14 | NUR ---
ED Nurse Note: Patient presents with complaints of recent fall, yesterday of unknown etiology. Patient has increased head pain today and chronic back pain. Patient is accompanied by her daughter at bedside who is providing translation.
--- NOTE | 2019-05-28 20:23 | NUR ---
ED Nurse Note: Blood drawn, urine collected and sent down stairs to lab.
[2019-05-28] MEDS ORDERED: Morphine Sulfate 2mg/ml Inj(IV/IM USE ONLY) IVP ONE ×2 (20:45→22:45)
[2019-05-28 20:58] LABS: INR 0.9 (0.9-1.1)
[2019-05-28 21:01] LABS: HEMATOCRIT 36.6 % (37.0-47.0); HEMOGLOBIN 12.7 G/DL (12.0-16.0); MEAN CORPUSCULAR VOLUME 88 FL (80-99); MONOCYTES % (AUTO) 14.6 % (1.0-10.0); NEUTROPHILS % (AUTO) 44.5 % (45.0-75.0); PLATELET COUNT 207 K/UL (150-450); RED BLOOD COUNT 4.17 M/UL (4.20-5.40); RED CELL DISTRIBUTION WIDTH 11.2 % (11.6-14.8); WHITE BLOOD COUNT 7.6 K/UL (4.8-10.8)
[2019-05-28 21:15] LABS: ALANINE AMINOTRANSFERASE 36 U/L (12-78); ALBUMIN 3.8 G/DL (3.4-5.0); ALBUMIN/GLOBULIN RATIO 1.3 (1.0-2.7); ALKALINE PHOSPHATASE 88 U/L (46-116); ANION GAP 10 mmol/L (5-15); ASPARTATE AMINO TRANSFERASE 16 U/L (15-37); BILIRUBIN,TOTAL 0.3 MG/DL (0.2-1.0); BLOOD UREA NITROGEN 14 mg/dL (7-18); CARBON DIOXIDE 25 MMOL/L (21-32); CHLORIDE 101 MMOL/L (98-107); CREATININE 0.9 MG/DL (0.55-1.30); POTASSIUM 3.5 MMOL/L (3.5-5.1); SODIUM 136 MMOL/L (136-145)
[2019-05-28] MEDS ORDERED: AZOR 5-20 MG T1 EACH ORAL (21:33)
[2019-05-28] MEDS ORDERED: BYSTOLIC2.5 MG ORAL (21:33)
[2019-05-28] MEDS ORDERED: HYDRALAZINE HC100 MG ORAL (21:33)
[2019-05-28 21:41] LABS: CALCIUM 9.4 MG/DL (8.5-10.1)
--- NOTE | 2019-05-28 22:05 | NUR ---
ED Nurse Note: Called and gave report to Julia WISE. Patient will be escorted to floor by RN and tech brazer tester.
[2019-05-28] MEDS ORDERED: Morphine Sulfate 2mg/ml Inj(IV/IM USE ONLY) ONE (22:32)
--- NOTE | 2019-05-28 22:43 | Emergency Room Report ---
History of Present Illness General Chief Complaint: Multiple Trauma/Fall Source: Patient Present Illness HPI Patient is an 83-year-old female brought in by family member after recent fall. Patient reports having fallen yesterday. She states that she does not recall how she ended up on the ground. She reports of increased pain to her low back as well as headache. She reports striking her head. She reports feeling somewhat dizzy. She also reports having some tightness to her neck. She had a prior history of chronic low back pain and is currently using Voltaren gel. She had recently had epidural injection several months ago. She noticed increased swelling to both legs. She denies any palpitations to losing consciousness. Allergies: Coded Allergies: PREDNISONE (Verified Allergy, Severe, REDNESS, SWELLING, 03/06/14) PENICILLINS (Verified Allergy, Intermediate, 03/18/17) Patient History Past Medical History: see triage record Past Surgical History: other - right side aneurysm coil two years ago. Last Menstrual Period: na Reviewed Nursing Documentation: PMH: Agreed; PSxH: Agreed Nursing Documentation-PMH Hx Cardiac Problems: Yes Hx Hypertension: Yes Hx Diabetes: Yes Hx Cancer: No Hx Gastrointestinal Problems: Yes Hx Neurological Problems: No - Stroke Hx Cerebrovascular Accident: Yes - in oct 2016, R sided weakness Hx Neurologic Surgery: Yes - aneurysm clip Physical Exam Vital Signs Date Time Temp Pulse Resp B/P (MAP) Pulse Ox O2 Delivery O2 Flow Rate FiO2 05/28/19 20:14 97.9 69 11 166/68 96 Room Air General Appearance: obese, Chronically Ill Head: other - scalp tenderness ENT: hearing grossly normal Neck: limited range of motion, other - muscle spasm Respiratory: normal inspection, chest non-tender, lungs clear Cardiovascular #1: normal inspection, normal peripheral pulses, regular rate, rhythm, edema - 2+edema Gastrointestinal: normal inspection, normal bowel sounds, non tender, soft Musculoskeletal: decreased range of motion, swelling Neurologic: normal inspection, alert, oriented x3, responsive, coordinator of online programs III-XII nml as tested Psychiatric: normal inspection Skin: normal color Medical Decision Making Diagnostic Impression: Primary Impression: Multiple injuries due to trauma Additional Impressions: Fall Spinal stenosis Head injury Edema ER Course Patient is an 83-year-old female who presented after unwitnessed loss of consciousness. Differential diagnosis include was noted to seizure, syncopal episode, hyponatremia, arrhythmia among others. Because of complexity of patient's case laboratory testing and imaging studies were ordered. Patient is noted to have a prior history of hyponatremia. Laboratory testing showed normal sodium. Patient was noted to be ambulatory with assistance. She was noted to have some significant low back pain and CT imaging was ordered. CT of the lumbar spine read by radiology showed multilevel degenerative changes with some spinal stenosis.CT imaging of the head read by radiology showed no evidence of acute intracranial hemorrhage with prior surgical changes. Patient had previous imaging performed which showed similar degenerative changes. Patient was noted to have some pain to both ankles. Dr. Theo Sutton was contacted for inpatient management due to panel physician. Labs Test 05/28/19 20:23 White Blood Count 7.6 K/UL (4.8-10.8) Red Blood Count 4.17 M/UL (4.20-5.40) Hemoglobin 12.7 G/DL (12.0-16.0) Hematocrit 36.6 % (37.0-47.0) Mean Corpuscular Volume 88 FL (80-99) Mean Corpuscular Hemoglobin 30.5 PG (27.0-31.0) Mean Corpuscular Hemoglobin Concent 34.7 G/DL (32.0-36.0) Red Cell Distribution Width 11.2 % (11.6-14.8) Platelet Count 207 K/UL (150-450) Mean Platelet Volume 7.2 FL (6.5-10.1) Neutrophils (%) (Auto) 44.5 % (45.0-75.0) Lymphocytes (%) (Auto) 37.0 % (20.0-45.0) Monocytes (%) (Auto) 14.6 % (1.0-10.0) Eosinophils (%) (Auto) 3.0 % (0.0-3.0) Basophils (%) (Auto) 1.0 % (0.0-2.0) Prothrombin Time 10.1 SEC (9.30-11.50) Prothromb Time International Ratio 0.9 (0.9-1.1) Activated Partial Thromboplast Time 26 SEC (23-33) Sodium Level 136 MMOL/L (136-145) Potassium Level 3.5 MMOL/L (3.5-5.1) Chloride Level 101 MMOL/L (98-107) Carbon Dioxide Level 25 MMOL/L (21-32) Anion Gap 10 mmol/L (5-15) Blood Urea Nitrogen 14 mg/dL (7-18) Creatinine 0.9 MG/DL (0.55-1.30) Estimat Glomerular Filtration Rate mL/min (>60) Glucose Level 123 MG/DL (74-106) Calcium Level 9.4 MG/DL (8.5-10.1) Total Bilirubin 0.3 MG/DL (0.2-1.0) Aspartate Amino Transf (AST/SGOT) 16 U/L (15-37) Alanine Aminotransferase (ALT/SGPT) 36 U/L (12-78) Alkaline Phosphatase 88 U/L (46-116) Troponin I 0.000 ng/mL (0.000-0.056) Pro-B-Type Natriuretic Peptide 162 pg/mL (0-125) Total Protein 6.8 G/DL (6.4-8.2) Albumin 3.8 G/DL (3.4-5.0) Globulin 3.0 g/dL Albumin/Globulin Ratio 1.3 (1.0-2.7) Last Vital Signs Date Time Temp Pulse Resp B/P (MAP) Pulse Ox O2 Delivery O2 Flow Rate FiO2 05/28/19 21:25 97.9 05/28/19 20:14 70 11 Room Air 05/28/19 20:14 166/68 (100) 96 Status: improved Disposition: ADMITTED INPATIENT Condition: Stable Referrals: NON PHYSICIAN (PCP) Valeriy Esparza MD May 28, 2019 22:43
[2019-05-28] MEDS ORDERED: Meclizine 25mg tab ORAL ONE (22:45)
--- NOTE | 2019-05-28 22:50 | NUR ---
ED Nurse Note: LILIYAD consulted with patient regarding CT and plan of care. ERMD also confirmed with admitting MD and now patient is ready for transport to the floor. Called Julia Whitman to notify her of patient's impending arrival.
--- NOTE | 2019-05-28 23:10 | NUR ---
NURSE NOTES: Patient arrived via gurney from the ED. Received report from FRANDY Hoang. Patient is able to ambulate to the bathroom and to situate herself into bed. New gown and linens provided, director of cardiac rehabilitation in place, vital signs taken and all needs are met. Belongings are accounted for and placed in side drawer. Patient is stable and granddaughter Glendy at bedside to help with translation ([place] speaker).
--- NOTE | 2019-05-28 23:26 | NUR ---
NURSE NOTES: Called and left message to Dr. Sutton's exchange for urgent call regarding admission orders. Awaiting call back.
--- NOTE | 2019-05-28 23:58 | Consultation ---
History of Present Illness General Date patient seen: May 29, 2019 Time patient seen: 08:00 Chief Complaint: Dizziness Referring physician: Dr. Theo Sutton Present Illness HPI Ms Montserrat Guerra Patient is an 83-year-old [place] Ze[place]ander speaking female brought in by family member after recent fall. She reports being dizzy and unstable for the last 10 days and reports having fallen yesterday and struck her head. She states that she does not recall how she ended up on the ground. She reports of increased pain to her low back as well as headache and some tightness to her neck. She reports bilateral swelling and pain in both of her legs. She had a prior history of chronic low back pain and is currently using Voltaren gel. She also has recently had epidural injection several months ago. She noticed increased swelling to both legs. She denies any palpitations, syncope/ LOC during fall yesterday or previously. She denies focal weakness. Allergies: Coded Allergies: PREDNISONE (Verified Allergy, Severe, REDNESS, SWELLING, 03/06/14) PENICILLINS (Verified Allergy, Intermediate, 03/18/17) Medication History Scheduled Amlodipine Bes/Olmesartan Med 5-20 Mg Tablet (Maikel 5-20 Mg Tablet), 1 TAB ORAL DAILY, (Reported) Amlodipine Besylate (Norvasc), 5 MG ORAL DAILY, (Reported) Aspirin* (Aspir 81*), 81 MG ORAL DAILY, (Reported) Atorvastatin Calcium* (Lipitor*), 10 MG ORAL BEDTIME, (Reported) Bisacodyl* (Dulcolax*), 5 MG ORAL DAILY, (Reported) Captopril (Captopril), 25 MG PO DAILY, (Reported) Carvedilol (Coreg), 3.125 MG ORAL EVERY 12 HOURS, (Reported) Hydralazine Hcl* (Hydralazine Hcl*), 150 MG ORAL EVERY 8 HOURS, (Reported) Nebivolol Hcl* (Bystolic*), 5 MG ORAL DAILY, (Reported) Olmesartan Medoxomil (Benicar), 20 MG ORAL DAILY, (Reported) Olmesartan Medoxomil (Olmesartan Medoxomil), 20 MG PO HS, (Reported) Sitagliptin Phos/Metformin Hcl (Janumet 50-1,000 Mg Tablet), 1 TAB ORAL DAILY, ( Reported) Sitagliptin Phos/Metformin Hcl (Janumet 50-500 Mg Tablet), 1 TAB ORAL TWICE A DAY, (Reported) Tizanidine Hcl (Tizanidine Hcl), 4 MG ORAL HS, (Reported) Scheduled PRN Acetaminophen* (Tylenol Extra Strength*), 500 MG ORAL Q8H PRN for Prn Headache/ Temp > 101 Zolpidem Tartrate* (Ambien*), 5 MG ORAL BEDTIME PRN for Insomnia, (Reported) Patient History Limited by: language barrier History Provided By: Patient Healthcare decision maker Resuscitation status Advanced Directive on File Review of Systems Constitutional: Reports: malaise, weakness Eye: Denies: no symptoms, see HPI, eye pain, blurred vision, tearing, double vision, nose pain, nose congestion, acuity changes, discharge, other ENT: Denies: no symptoms, see HPI, ear pain, ear discharge, nose pain, nose congestion, throat pain, throat swelling, mouth pain, hearing loss, nasal discharge, other Respiratory: Denies: no symptoms, see HPI, cough, orthopnea, shortness of breath, stridor, wheezing, SERRANO, sputum, other Cardiovascular: Denies: no symptoms, see HPI, chest pain, edema, palpitations, syncope, PND, other Gastrointestinal: Reports: nausea; Denies: no symptoms, see HPI, abdominal pain , constipation, diarrhea, vomiting, melena, hematemesis, other Genitourinary: Denies: no symptoms, see HPI, discharge, dysuria, frequency, hematuria, pain, retention, incontinence, urgency, vag bleed/dc, other Musculoskeletal: Reports: see HPI, back pain; Denies: no symptoms, gout, joint pain, joint swelling, other Skin: Denies: no symptoms, see HPI, rash, change in color, change in hair/nails , dryness, lesions, other Psychiatric: Denies: no symptoms, see HPI, prior hx, anxiety, depressed feelings, emotional problems, SI, HI, hallucinations, other Neurological: Reports: headache, dizziness, other Endocrine: Denies: no symptoms, see HPI, excessive sweating, flushing, intolerance to temperature, increased thirst, increased urine, unexplained weight loss, other Hematologic/Lymphatic: Denies: no symptoms, see HPI, anemia, blood clots, easy bleeding, easy bruising, swollen glands, diathesis, other Physical Exam General Appearance: WD/WN, no apparent distress, alert, mild distress, overweight, alert oriented x3 Lines, tubes and drains: peripheral HEENT: normocephalic, atraumatic, anicteric, mucous membranes moist, PERRL, EOMI, pharynx normal, supple, no JVD Neck: non-tender, normal alignment, normal inspection, limited range of motion , muscle spasm, paraspinous muscle tender Respiratory/Chest: normal breath sounds, no respiratory distress, no accessory muscle use Cardiovascular/Chest: no gallop/murmur, no JVD Extremities: normal range of motion, calf tenderness, inflammation, trace edema Skin Exam: normal pigmentation, warm/dry, no diaphoresis Neurologic: heating fixture tender II-XII grossly normal, no motor/sensory deficits, alert, oriented x 3, responsive, normal mood/affect, other - Generalized weakness and dizziness/ nausea- low examination threshhold Musculoskeletal: normal muscle bulk, no effusion Last 24 Hour Vital Signs Date Time Temp Pulse Resp B/P (MAP) Pulse Ox O2 Delivery O2 Flow Rate FiO2 05/28/19 22:53 97.9 11 166/ 96 Room Air 05/28/19 21:25 97.9 05/28/19 20:14 70 11 Room Air 05/28/19 20:14 97.9 70 11 166/68 (100) 96 Room Air 05/28/19 20:14 97.9 69 11 166/68 96 Room Air Laboratory Tests Test 05/28/19 20:23 White Blood Count 7.6 K/UL (4.8-10.8) Red Blood Count 4.17 M/UL (4.20-5.40) L Hemoglobin 12.7 G/DL (12.0-16.0) Hematocrit 36.6 % (37.0-47.0) L Mean Corpuscular Volume 88 FL (80-99) Mean Corpuscular Hemoglobin 30.5 PG (27.0-31.0) Mean Corpuscular Hemoglobin Concent 34.7 G/DL (32.0-36.0) Red Cell Distribution Width 11.2 % (11.6-14.8) L Platelet Count 207 K/UL (150-450) Mean Platelet Volume 7.2 FL (6.5-10.1) Neutrophils (%) (Auto) 44.5 % (45.0-75.0) L Lymphocytes (%) (Auto) 37.0 % (20.0-45.0) Monocytes (%) (Auto) 14.6 % (1.0-10.0) H Eosinophils (%) (Auto) 3.0 % (0.0-3.0) Basophils (%) (Auto) 1.0 % (0.0-2.0) Prothrombin Time 10.1 SEC (9.30-11.50) Prothromb Time International Ratio 0.9 (0.9-1.1) Activated Partial Thromboplast Time 26 SEC (23-33) Sodium Level 136 MMOL/L (136-145) Potassium Level 3.5 MMOL/L (3.5-5.1) Chloride Level 101 MMOL/L (98-107) Carbon Dioxide Level 25 MMOL/L (21-32) Anion Gap 10 mmol/L (5-15) Blood Urea Nitrogen 14 mg/dL (7-18) Creatinine 0.9 MG/DL (0.55-1.30) Estimat Glomerular Filtration Rate mL/min (>60) Glucose Level 123 MG/DL (74-106) H Calcium Level 9.4 MG/DL (8.5-10.1) Total Bilirubin 0.3 MG/DL (0.2-1.0) Aspartate Amino Transf (AST/SGOT) 16 U/L (15-37) Alanine Aminotransferase (ALT/SGPT) 36 U/L (12-78) Alkaline Phosphatase 88 U/L (46-116) Troponin I 0.000 ng/mL (0.000-0.056) Pro-B-Type Natriuretic Peptide 162 pg/mL (0-125) H Total Protein 6.8 G/DL (6.4-8.2) Albumin 3.8 G/DL (3.4-5.0) Globulin 3.0 g/dL Albumin/Globulin Ratio 1.3 (1.0-2.7) Height (Feet): 5 Height (Inches): 5.00 Weight (Pounds): 150 Assessment/Plan Problem List: (1) Edema ICD Codes: R60.9 - Edema, unspecified SNOMED: 632238019, 472080707 (2) Spinal stenosis ICD Codes: M48.00 - Spinal stenosis, site unspecified SNOMED: 12424609, 712604748 (3) Head injury ICD Codes: S09.90XA - Unspecified injury of head, initial encounter SNOMED: 27517156, 838671995 (4) Multiple injuries due to trauma ICD Codes: T07.XXXA - Unspecified multiple injuries, initial encounter SNOMED: 876166562 (5) Diabetes mellitus ICD Codes: E11.9 - Type 2 diabetes mellitus without complications SNOMED: 59862227 (6) Contusion ICD Codes: T14.8 - Other injury of unspecified body region SNOMED: 990828853 (7) Headache ICD Codes: R51 - Headache SNOMED: 09406720 (8) Hypercholesteremia ICD Codes: E78.00 - Pure hypercholesterolemia, unspecified SNOMED: 25248029 (9) Hyponatremia ICD Codes: E87.1 - Hypo-osmolality and hyponatremia SNOMED: 90312013 (10) Osteoarthritis ICD Codes: M19.90 - Unspecified osteoarthritis, unspecified site SNOMED: 985793327 (11) Fall ICD Codes: W19.XXXA - Unspecified fall, initial encounter SNOMED: 1485845, 964841934 (12) HTN (hypertension) ICD Codes: I10 - Essential (primary) hypertension SNOMED: 82038172 (13) Brain aneurysm ICD Codes: I67.1 - Cerebral aneurysm, nonruptured SNOMED: 611962027, 902558903 (14) History of CVA (cerebrovascular accident) ICD Codes: Z86.73 - Personal history of transient ischemic attack (TIA), and cerebral infarction without residual deficits SNOMED: 427230664 (15) 23-polyvalent pneumococcal polysaccharide vaccine indication of diabetes in patient 6 to 64 years of age ICD Codes: E11.9 - Type 2 diabetes mellitus without complications; Z91.89 - Other specified personal risk factors, not elsewhere classified SNOMED: 78449686, 659458647 Status: stable Status Narrative This patient has a nonfocal exam with prior hx or right cerebral stent and mild facial weakness at rest but not on movement. She is currently nauseated secondary to dizziness/ vertigo exacerbated by movement . MRI Brain w/o contrast - if coil is MRI safe Largely normotensive at this point but maintain SBP<140 Symptoms are 10 days old so no acute interventions if thromboembolic event occurred - symptom management at this time with Meclizine 25mg TID and PRN 4mg Zofran TID. INstructed nursing staff to check orthostatic vitals - can do sitting up and laying down in bed Cerebral hypoperfusion vs Vestibular migraine Bilateral Venous Doppler study for complaint of bilateral leg pain and swelling. Check TSH Eda Jones N.P. May 28, 2019 23:58
[2019-05-29] VITALS: BP 150/68
--- NOTE | 2019-05-29 00:54 | NUR ---
NURSE NOTES: 2nd attempt made to Dr. Sutton's urgent exchange line for admission orders. Charge nurse notified. Advised to contact Dr. Porter; message left for admission orders on behalf of Dr. Sutton.
[2019-05-29] MEDS ORDERED: Morphine Sulfate 2mg/ml Inj(IV/IM USE ONLY) IVP PRN (02:00)
[2019-05-29] MEDS ORDERED: LORazepam Inj 2mg/ml 1ml IV PRN (02:00)
[2019-05-29] MEDS ORDERED: Miralax 17gm pkt ORAL PRN (02:00)
[2019-05-29] MEDS ORDERED: Albuterol/Ipratropium 3ml neb HHN PRN (02:00)
[2019-05-29] MEDS ORDERED: Mylanta II UD 30ml ORAL PRN (02:00)
[2019-05-29] MEDS ORDERED: Nitroglycerin Subl 0.4mg tab SL PRN (02:00)
[2019-05-29 04:00] VITALS: BP 132/61
--- NOTE | 2019-05-29 07:23 | NUR ---
HAND-OFF: Report given to FRANDY Patrick.
--- NOTE | 2019-05-29 07:24 | NUR ---
NURSE NOTES: Received report from FRANDY Dumont. The patient is having a breakfast on the bed but has mild headache. Karen neuro SEWING MACHINE OPERATOR FLOORPERSON, was at the bedside and gave orders. Will carry out the order. The patient's bed in the lowest position, call light in reach, and fall and aspiration precaution reinforced. IV is intact and patent. Will continue plan of care.
[2019-05-29 08:00] VITALS: BP 124/51
--- NOTE | 2019-05-29 09:00 | NUR ---
NURSE NOTES: Computer password and had trouble in resetting the password. Called help desk and waiting for the call. Medication administration still completed with charge nurse. Per patient, she used to take Amlodipine 5mg at 1600 rather than in the morning. The patient does not want to take medication in the morning but at evening. Will clarify with Dr. Porter to change the dose schedule. Addendum: 05/30/19 at 0744 by Teo Narayanan RN Late Entry: Per patient, she used to take Amlodipine 5mg 1700 rather than in the morning. Clarified with Dr. Porter again regarding changing schedule of the medication and received order. Carried out the order.
--- NOTE | 2019-05-29 09:14 | NUR ---
RADIOLOGY DEPARTMENT, CHEST X-RAY DONE.-P.DYE
[2019-05-29] MEDS: Aspirin EC 81mg tab ORAL SCH (09:50)
[2019-05-29] MEDS: Meclizine 25mg tab ORAL SCH ×3 (09:50→17:33)
[2019-05-29] MEDS: Bystolic 2.5mg Tab ORAL SCH (09:50)
[2019-05-29] MEDS: Heparin 5000 units/ml inj SUBQ SCH ×2 (09:52→21:31)
--- NOTE | 2019-05-29 10:16 | NUR ---
CASE MANAGEMENT: INITIAL REVIEW 83 YO F PRESENTED TO OUR ED FROM HOME CC: MULTIPLE FALL/TRAUMA PMHx: HTN. DM. CVA. SI:SYNCOPE. FALL. T 97.9 HR 69 RR 11 B/P 166/68 SATS 96% ON RA GLU 123 BNP 162 IS: MORPHINE IV X1 ZOFRAN IV X1 PATIENT ADMITTED TO TELE 05/28/2019 @ 8373 DCP: PATIENT TO BE DISCHARGED TO HOME ONCE MEDICALLY CLEARED. PLAN OF CARE: MRI BRAIN VENOUS DUPLEX PT EVAL CAROTID DUPLEX 2D ECHO Addendum: 05/29/19 at 1258 by Luz Mcguire CM INTERQUAL MET
--- NOTE | 2019-05-29 10:20 | NUR ---
NURSE NOTES: Change Amlodipine 5mg 1tab PO QD schedule from [address] Porter's order. Addendum: 05/30/19 at 0746 by Teo Narayanan RN Late Entry: Per patient, she used to take Amlodipine 5mg 1tab PO @1700. Received order from Dr. Porter again in regards to changing the schedule of the medication. Carried out the order.
--- NOTE | 2019-05-29 10:26 | Diagnostic Imaging Report ---
Indication: Back pain Technique: Continuous helical transaxial imaging of the lumbar spine was obtained. No IV contrast was administered. Coronal 2-D reformats were also obtained. Study obtained in a Siemens sensation [address] Total Dose length Product (DLP): [address] Dose Index Volume (CTDIvol): 15.6, 0.25 mGy Comparison: None Findings: There is no evidence of an acute fracture or malalignment. No soft tissue swelling is identified. There is some multilevel narrowing of intervertebral discs somewhat vacuum phenomena. There is a minimal anterolisthesis at L2-3. Pretreatment facets noted within the lumbar spine. Impression: Negative for acute injury. Degenerative changes as described above Atherosclerotic vascular disease The CT scanner at [facility] is accredited by the [employer] and the scans are performed using dose optimization techniques as appropriate to a performed exam including Automatic Exposure control.
--- NOTE | 2019-05-29 11:02 | Diagnostic Imaging Report ---
Indication: Headache Technique: Contiguous 5 mm thick transaxial imaging of the head obtained in a Siemens Sensation [address] scanner. Soft tissue and bone windows generated. Automatic Exposure Control was utilized. Total Dose length Product (DLP): 1376.[address] Dose Index Volume (CTDIvol): 70.38 mGy Comparison: 07/22/2017 CT head Findings: The size and configuration of the cortical sulci, basal cisterns, and ventricles are within normal limits for age. There is no mass effect, midline shift, or edema identified. There is an aneurysm clip in the right aspect of the suprasellar cistern. Associated streak artifact There is no evidence of acute hemorrhage or abnormal intra-axial or extra-axial fluid collections. The bones and soft tissues are unremarkable. Impression: No mass effect, edema or acute bleed. No change. Evidence of previous aneurysm coiling. The CT scanner at [facility] is accredited by the [employer] and the scans are performed using dose optimization techniques as appropriate to a performed exam including Automatic Exposure control.
[2019-05-29 12:00] VITALS: BP 123/64
[2019-05-29] MEDS ORDERED: Ketorolac 30mg Inj IV PRN (12:00)
--- NOTE | 2019-05-29 12:04 | Consultation ---
History of Present Illness General Date patient seen: May 29, 2019 Chief Complaint: Multiple Trauma/Fall Referring physician: Dr. Theo Sutton Present Illness HPI 83-year-old female with hx of DM, HTN, CVA, Brain aneurysm, spinal stenosis brought in by family member after recent fall. she does not recall how she ended up on the ground. She reports of pain to her low back as well as headache. She reports feeling somewhat dizzy and tightness to her neck. She is admitted to telemetry for further evaluation. Allergies: Coded Allergies: PREDNISONE (Verified Allergy, Severe, REDNESS, SWELLING, 03/06/14) PENICILLINS (Verified Allergy, Intermediate, 03/18/17) Medication History Scheduled Amlodipine Bes/Olmesartan Med 5-20 Mg Tablet (Maikel 5-20 Mg Tablet), 1 TAB ORAL DAILY, (Reported) Amlodipine Besylate (Norvasc), 5 MG ORAL DAILY, (Reported) Aspirin* (Aspir 81*), 81 MG ORAL DAILY, (Reported) Atorvastatin Calcium* (Lipitor*), 10 MG ORAL BEDTIME, (Reported) Bisacodyl* (Dulcolax*), 5 MG ORAL DAILY, (Reported) Captopril (Captopril), 25 MG PO DAILY, (Reported) Carvedilol (Coreg), 3.125 MG ORAL EVERY 12 HOURS, (Reported) Hydralazine Hcl* (Hydralazine Hcl*), 150 MG ORAL EVERY 8 HOURS, (Reported) Nebivolol Hcl* (Bystolic*), 5 MG ORAL DAILY, (Reported) Olmesartan Medoxomil (Benicar), 20 MG ORAL DAILY, (Reported) Olmesartan Medoxomil (Olmesartan Medoxomil), 20 MG PO HS, (Reported) Sitagliptin Phos/Metformin Hcl (Janumet 50-1,000 Mg Tablet), 1 TAB ORAL DAILY, ( Reported) Sitagliptin Phos/Metformin Hcl (Janumet 50-500 Mg Tablet), 1 TAB ORAL TWICE A DAY, (Reported) Tizanidine Hcl (Tizanidine Hcl), 4 MG ORAL HS, (Reported) Scheduled PRN Acetaminophen* (Tylenol Extra Strength*), 500 MG ORAL Q8H PRN for Prn Headache/ Temp > 101 Zolpidem Tartrate* (Ambien*), 5 MG ORAL BEDTIME PRN for Insomnia, (Reported) Patient History Healthcare decision maker Resuscitation status Full Code Advanced Directive on File Past Medical/Surgical History Past Medical/Surgical History: (1) History of CVA (cerebrovascular accident) (2) Brain aneurysm (3) Diabetes mellitus (4) Spinal stenosis Review of Systems Eye: Reports: no symptoms Genitourinary: Reports: no symptoms Physical Exam General Appearance: WD/WN Lines, tubes and drains: peripheral HEENT: normocephalic, anicteric Neck: non-tender, normal alignment Respiratory/Chest: chest wall non-tender, lungs clear Abdomen: normal bowel sounds, non tender Genitourinary/Rectal: normal genital exam Extremities: normal range of motion Skin Exam: normal pigmentation Last 24 Hour Vital Signs Date Time Temp Pulse Resp B/P (MAP) Pulse Ox O2 Delivery O2 Flow Rate FiO2 05/29/19 09:55 73 20 95 Room Air 21 05/29/19 08:00 68 05/29/19 08:00 98.4 76 18 124/51 (75) 97 05/29/19 04:00 98.2 69 18 132/61 (84) 94 05/29/19 03:28 69 05/29/19 00:00 97.5 75 20 150/68 (95) 95 05/28/19 23:10 Room Air 05/28/19 23:09 72 05/28/19 22:53 97.9 11 166/68 96 Room Air 05/28/19 21:25 97.9 05/28/19 20:14 70 11 Room Air 05/28/19 20:14 97.9 70 11 166/68 (100) 96 Room Air 05/28/19 20:14 97.9 69 11 166/68 96 Room Air Intake and Output 05/28/19 05/29/19 19:00 07:00 Intake Total 200 ml Balance 200 ml Intake Oral 200 ml # Voids 1 Laboratory Tests Test 05/28/19 20:23 05/29/19 09:50 White Blood Count 7.6 K/UL (4.8-10.8) Red Blood Count 4.17 M/UL (4.20-5.40) L Hemoglobin 12.7 G/DL (12.0-16.0) Hematocrit 36.6 % (37.0-47.0) L Mean Corpuscular Volume 88 FL (80-99) Mean Corpuscular Hemoglobin 30.5 PG (27.0-31.0) Mean Corpuscular Hemoglobin Concent 34.7 G/DL (32.0-36.0) Red Cell Distribution Width 11.2 % (11.6-14.8) L Platelet Count 207 K/UL (150-450) Mean Platelet Volume 7.2 FL (6.5-10.1) Neutrophils (%) (Auto) 44.5 % (45.0-75.0) L Lymphocytes (%) (Auto) 37.0 % (20.0-45.0) Monocytes (%) (Auto) 14.6 % (1.0-10.0) H Eosinophils (%) (Auto) 3.0 % (0.0-3.0) Basophils (%) (Auto) 1.0 % (0.0-2.0) Prothrombin Time 10.1 SEC (9.30-11.50) Prothromb Time International Ratio 0.9 (0.9-1.1) Activated Partial Thromboplast Time 26 SEC (23-33) Sodium Level 136 MMOL/L (136-145) Potassium Level 3.5 MMOL/L (3.5-5.1) Chloride Level 101 MMOL/L (98-107) Carbon Dioxide Level 25 MMOL/L (21-32) Anion Gap 10 mmol/L (5-15) Blood Urea Nitrogen 14 mg/dL (7-18) Creatinine 0.9 MG/DL (0.55-1.30) Estimat Glomerular Filtration Rate mL/min (>60) Glucose Level 123 MG/DL (74-106) H Calcium Level 9.4 MG/DL (8.5-10.1) Total Bilirubin 0.3 MG/DL (0.2-1.0) Aspartate Amino Transf (AST/SGOT) 16 U/L (15-37) Alanine Aminotransferase (ALT/SGPT) 36 U/L (12-78) Alkaline Phosphatase 88 U/L (46-116) Troponin I 0.000 ng/mL (0.000-0.056) Pro-B-Type Natriuretic Peptide 162 pg/mL (0-125) H Total Protein 6.8 G/DL (6.4-8.2) Albumin 3.8 G/DL (3.4-5.0) Globulin 3.0 g/dL Albumin/Globulin Ratio 1.3 (1.0-2.7) Hemoglobin A1c 6.2 % (4.3-6.0) H Height (Feet): 5 Height (Inches): 5.00 Weight (Pounds): 150 Medications Current Medications Medications (Trade) Dose Ordered Sig/Ethan Route PRN Reason Start Time Stop Time Status Last Admin Dose Admin Acetaminophen (Tylenol) 650 mg Q4H PRN ORAL fever 05/29/19 02:00 06/28/19 01:59 05/29/19 03:11 Al Hydroxide/Mg Hydroxide (Mylanta II) 30 ml Q6H PRN ORAL dyspepsia 05/29/19 02:00 06/28/19 01:59 Albuterol/ Ipratropium (Albuterol/ Ipratropium) 3 ml Q4H PRN HHN Shortness of Breath 05/29/19 02:00 06/03/19 01:59 Amlodipine Besylate (Norvasc) 5 mg DAILY@1600 ORAL 05/29/19 16:00 06/28/19 15:59 Aspirin (Ecotrin) 81 mg DAILY ORAL 05/29/19 09:00 06/28/19 08:59 05/29/19 09:50 Clonidine HCl (Catapres Tab) 0.1 mg Q4H PRN ORAL For High Blood Pressure 05/29/19 02:00 06/28/19 01:59 Dextrose (Dextrose 50%) 25 ml Q30M PRN IV Hypoglycemia 05/29/19 02:00 06/28/19 01:59 Dextrose (Dextrose 50%) 50 ml Q30M PRN IV Hypoglycemia 05/29/19 02:00 06/28/19 01:59 Heparin Sodium (Porcine) (Heparin 5000 units/ml) 5,000 units EVERY 12 HOURS SUBQ 05/29/19 09:00 06/28/19 08:59 05/29/19 09:52 Ibuprofen (Advil) 400 mg TIDPRN PRN ORAL Mild Pain (Pain Scale 1-3) 05/29/19 11:45 06/28/19 11:44 Ketorolac Tromethamine (Toradol 30mg) 30 mg Q6H PRN IV severe pain 7-10 05/29/19 12:00 06/03/19 11:59 UNV Lorazepam (Ativan 2mg/ml 1ml) 0.5 mg Q4H PRN IV For Anxiety 05/29/19 02:00 06/05/19 01:59 Meclizine HCl (Antivert) 25 mg TID ORAL 05/29/19 09:00 06/28/19 08:59 05/29/19 09:50 Morphine Sulfate (Morphine Sulfate) 1 mg Q4H PRN IVP For Pain -05/29/19 02:00 06/05/19 01:59 Nebivolol (Bystolic) 5 mg DAILY ORAL 05/29/19 09:00 06/28/19 08:59 05/29/19 09:50 Nitroglycerin (Ntg) 0.4 mg Q5M X 3 DOSES PRN SL Prn Chest Pain 05/29/19 02:00 06/28/19 01:59 Ondansetron HCl (Zofran) 4 mg Q6H PRN IVP Nausea & Vomiting 05/29/19 08:00 06/28/19 07:59 Ondansetron HCl (Zofran) 4 mg TIDPRN PRN ORAL Nausea & Vomiting 05/29/19 08:00 06/28/19 07:59 Polyethylene Glycol (Miralax) 17 gm HSPRN PRN ORAL Constipation 05/29/19 02:00 06/28/19 01:59 Temazepam (Restoril) 15 mg HSPRN PRN ORAL Insomnia 05/29/19 02:00 06/05/19 01:59 Assessment/Plan Problem List: (1) Acute encephalopathy ICD Codes: G93.40 - Encephalopathy, unspecified SNOMED: 79711361, 403482691 (2) Brain aneurysm ICD Codes: I67.1 - Cerebral aneurysm, nonruptured SNOMED: 985996128, 108264353 (3) Spinal stenosis ICD Codes: M48.00 - Spinal stenosis, site unspecified SNOMED: 94739787, 840074796 (4) History of hypertension ICD Codes: Z86.79 - Personal history of other diseases of the circulatory system SNOMED: 273783865 (5) Diabetes mellitus ICD Codes: E11.9 - Type 2 diabetes mellitus without complications SNOMED: 07600845 (6) Osteoarthritis ICD Codes: M19.90 - Unspecified osteoarthritis, unspecified site SNOMED: 525388399 Assessment/Plan: telemetry monitoring sliding scale endocrinology evaluation pain management, she doesn't want narcotics Toradol IV for pain pt.ot Jessi Porter MD May 29, 2019 12:04
--- NOTE | 2019-05-29 12:17 | NUR ---
P.T NOTE: P.T EVALUATION COMPLETED AND TREATMENT INITIATED. PLEASE REFER TO P.T EVALUATION FOR CURRENT FUNCTIONAL STATUS. PATIENT IS ALERT, O X 4 , PLEASANT AND COOPERATIVE. PATIENT REPORTS C/O PAIN IN THE LOWER BACK AND HEADACHE RATED 5-6/10. PATIENT ALSO REPORTS C/O BEING GENERALLY WEAK AND FATIGUED AFFECTING HER BALANCE AND OVERALL FUNCTIONAL MOBILITY PERFORMANCE. PATIENT CURRENTLY REQUIRE SBA X 1 FOR BED MOBILITIES, CGA X 1 FOR TRANSFERS AND GAIT/AMBULATION USING HER OWN SPC. PATIENT WILL BENEFIT FROM SKILLED P.T SERVICES TO IMPROVE HER STRENGTH, ENDURANCE AND BALANCE. RECOMMEND D/C TO HOME WITH FAMILY ASSISTANCE UNTIL STABLE WITH HOME P.T FOLLOW UP OR SNF FOR [place]. RECOMMEND FWW VS SPC TO FACILITATE SAFETY DURING ACTIVITIES. PATIENT IS CLEARED FOR OOB ACTIVITIES WITH NURSING. THANK YOU FOR THIS REFERRAL.
--- NOTE | 2019-05-29 13:03 | NUR ---
NURSE NOTES: The patient went down for MRI of brain without contrast. Off tele order initiated. It will take 20 minutes per Nazario, chief ophthalmic technician. Will continue plan of care as soon as the patient arrives back to the unit.
--- NOTE | 2019-05-29 13:20 | Diagnostic Imaging Report ---
Indication: Dyspnea Comparison: 07/22/2017 A single view chest radiograph was obtained. Findings: Cardiomediastinal appearance is within normal limits for age. The lungs are clear. Pulmonary vascularity is appropriate. The diaphragmatic contour is smooth and costophrenic angles are sharp. No pleural effusions are identified. The bones are unremarkable. Impression: No acute findings
--- NOTE | 2019-05-29 13:48 | NUR ---
NURSE NOTES: The patient is safely back from Brain MRI without contrast. Will continue to monitor the patient.
--- NOTE | 2019-05-29 14:39 | Cardiology Report ---
APPROVED REPORT EXAM: Two-dimensional and M-mode echocardiogram with Doppler and color Doppler. INDICATION LV FUNCTION M-Mode DIMENSIONS IVSd1.2 (0.7-1.1cm)Left Atrium (MM)3.2 (1.6-4.0cm) LVDd3.9 (3.5-5.6cm)Aortic Root3.6 (2.0-3.7cm) PWd1.1 (0.7-1.1cm)Aortic Cusp Exc.1.8 (1.5-2.0cm) IVSs1.6 cm LVDs2.1 (2.5-4.0cm) PWs1.0 cm Normal left ventricular chamber size, systolic function and wall motion . Left ventricular ejection fraction estimated to be 60-65%. Mild left ventricular hypertrophy by 2-D. Anterior Echo-free space, may be due to pericardial fat or effusion. All other cardiac chamber sizes are within normal limits. Aortic valve calcification with normal cusp excursion . Mildly thickened mitral valve leaflets with normal excursion. Mild mitral annulus and aortic root calcification. Pulmonic valve not well visualized. IVC at normal size with physiologic collapse . A color flow and spectral Doppler study was performed and revealed: No aortic insufficiency . Mitral diastolic velocities suggest reduced left ventricular relaxation c/w mild LV diastolic dysfunction (Grade I ) Mild to moderate mitral regurgitation. Mild tricuspid regurgitation. Tricuspid systolic velocities suggests peak right ventricular systolic pressure of 34mmHg. Mild pulmonic regurgitation .
--- NOTE | 2019-05-29 15:39 | NUR ---
NURSE NOTES: Spoke with Karen Neuro TALLOW REFINER, regarding facial swelling, pressure on head, and bilateral eye discomfort. She denies of nausea or vomiting at this time. Will continue to monitor the patient and will carry out the order as soon as receives it.
--- NOTE | 2019-05-29 15:40 | NUR ---
NURSE NOTES: Per patient, she has been on Janumet 500mg 1tab PO Qam for DM. Notified to Dr. Sutton. Per Dr. Sutton, accucheck AC+HS and resume Janumet 500mg 1tab PO Qam and Insullin sliding scale. Will carry out the order. Addendum: 05/29/19 at 1852 by Teo Narayanan RN Janumet 50/500mg 1tab PO before breakfast.
[2019-05-29 16:00] VITALS: BP 123/57
--- NOTE | 2019-05-29 16:40 | Diagnostic Imaging Report ---
Indication: Dizziness. History of aneurysm coiling Technique: The head was imaged in a 1.5 Maribel magnet. Sequences obtained include sagittal and axial T1 FLAIR, axial T2 fast spin echo with fat saturation, axial T2 FLAIR, diffusion and ADC map. Comparison: CT head 05/28/2019 There is a focus of aneurysm coils in the right aspect of the suprasellar cistern best seen on the recent CT and T2* gradient echo sequence as susceptibility artifact. Flow voids are seen within major intracranial vessels. There is no evidence of intracranial bleed. There is no mass effect or edema. Minimal generalized atrophy of the brain noted certainly age appropriate. Corpus callosum is unremarkable. The pituitary gland appears somewhat prominent for age. Correlate clinically. Bone marrow signal is normal. There is minimal periventricular T2 hyperintense signal centrally acceptable at this age. There is no diffusion restriction. No abnormal extra-axial collections are identified. Cerebellum is unremarkable. IMPRESSION: No acute CVA, intracranial bleed, mass effect or edema identified. Status post aneurysm coil at the right ICA/MCA junction. Minimal periventricular T2 hyperintense signal consistent chronic small vessel disease. Somewhat prominent pituitary gland for age. Correlate clinically.
--- NOTE | 2019-05-29 17:15 | History and Physical Report ---
DATE OF ADMISSION: 05/28/2019 DATE AND TIME SEEN: 05/29/2019 at 12 noon. CONSULTANTS: 1. Jessi Porter M.D. 2. Gianluca Gray M.D. 3. Justice Schmitt M.D. CHIEF COMPLAINT: Syncope. BRIEF HISTORY: This is an 83-year-old female who lives at home by herself had a syncopal episode last night. It was unwitnessed. The patient was dizzy and then fainted. She did not become incontinent. The patient hit her back and head and was slightly tired, called 911. The patient was transferred to [facility], diagnosed with above, admitted to telemetry for further care. Currently, slightly anxious in bed, slight general pain, back pain, no complaint. REVIEW OF SYSTEMS: No chest pain. No shortness of breath. No nausea, vomiting, or diarrhea. PAST MEDICAL HISTORY: Includes hypertension, diabetes, spinal stenosis, brain aneurysm. PAST SURGICAL HISTORY: Brain aneurysm clipping, knee replacement. ALLERGIES: Steroids, prednisone, and penicillin. SOCIAL HISTORY: No smoking. No alcohol. No intravenous drug abuse. FAMILY HISTORY: Noncontributory. PHYSICAL EXAMINATION: GENERAL: Calm, slightly anxious in room, oriented x3, no acute distress. VITAL SIGNS: Temperature is 98 degrees, pulse 76, respirations 18, blood pressure 124/51. CARDIOVASCULAR: No murmur. LUNGS: Distant and clear. ABDOMEN: Bowel sounds distant. Nontender. Nondistended. EXTREMITIES: No cyanosis, clubbing, or edema. NEUROLOGIC: The patient moves all extremities, slightly weak. LABORATORY AND DIAGNOSTIC DATA: Labs at this time show CBC is normal. BMP shows glucose 123, otherwise BMP is normal. Troponin 0.00. BNP is 162. INR is 0.9, PTT is 26. MEDICATIONS: Include amlodipine, Toradol, ibuprofen, aspirin, meclizine, Zofran, Tylenol, lorazepam. ASSESSMENT: 1. Syncope. 2. Leg swelling. 3. Low back pain. 4. Hypertension. 5. Diabetes. 6. Spinal stenosis. 7. Brain aneurysm. 8. CVA. 9. Arthritis. PLAN: 1. PT/Dietary eval. 2. Pain control. 3. Blood pressure control. 4. Dietary followup. 5. Blood pressure, blood sugar control. 6. CBC, BMP in the morning. 7. Resume home medications. Theo Sutton D.O. DR: LUCAS JOB#: [id number] CC:
[2019-05-29] MEDS: NovoLOG Insulin Flexpen SUBQ SCH ×2 (17:23→21:32)
--- NOTE | 2019-05-29 18:51 | Cardiac Electrophysiology PN ---
Subjective Subjective [id number] Objective Last 24 Hour Vital Signs Date Time Temp Pulse Resp B/P (MAP) Pulse Ox O2 Delivery O2 Flow Rate FiO2 05/29/19 17:33 62 123/57 05/29/19 16:00 98.2 62 18 123/57 (79) 98 05/29/19 16:00 60 05/29/19 12:00 98.4 64 18 123/64 (83) 98 05/29/19 12:00 75 05/29/19 09:55 73 20 95 Room Air 21 05/29/19 09:10 83 05/29/19 09:05 73 05/29/19 09:00 76 05/29/19 09:00 Room Air 05/29/19 08:00 68 05/29/19 08:00 98.4 76 18 124/51 (75) 97 05/29/19 04:00 98.2 69 18 132/61 (84) 94 05/29/19 03:28 69 05/29/19 00:00 97.5 75 20 150/68 (95) 95 05/28/19 23:10 Room Air 05/28/19 23:09 72 05/28/19 22:53 97.9 11 166/68 96 Room Air 05/28/19 21:25 97.9 05/28/19 20:14 70 11 Room Air 05/28/19 20:14 97.9 70 11 166/68 (100) 96 Room Air 05/28/19 20:14 97.9 69 11 166/68 96 Room Air Intake and Output 05/28/19 05/29/19 19:00 07:00 Intake Total 200 ml Balance 200 ml Intake Oral 200 ml # Voids 1 Laboratory Tests Test 05/28/19 20:23 05/29/19 09:50 White Blood Count 7.6 K/UL (4.8-10.8) Red Blood Count 4.17 M/UL (4.20-5.40) L Hemoglobin 12.7 G/DL (12.0-16.0) Hematocrit 36.6 % (37.0-47.0) L Mean Corpuscular Volume 88 FL (80-99) Mean Corpuscular Hemoglobin 30.5 PG (27.0-31.0) Mean Corpuscular Hemoglobin Concent 34.7 G/DL (32.0-36.0) Red Cell Distribution Width 11.2 % (11.6-14.8) L Platelet Count 207 K/UL (150-450) Mean Platelet Volume 7.2 FL (6.5-10.1) Neutrophils (%) (Auto) 44.5 % (45.0-75.0) L Lymphocytes (%) (Auto) 37.0 % (20.0-45.0) Monocytes (%) (Auto) 14.6 % (1.0-10.0) H Eosinophils (%) (Auto) 3.0 % (0.0-3.0) Basophils (%) (Auto) 1.0 % (0.0-2.0) Prothrombin Time 10.1 SEC (9.30-11.50) Prothromb Time International Ratio 0.9 (0.9-1.1) Activated Partial Thromboplast Time 26 SEC (23-33) Sodium Level 136 MMOL/L (136-145) Potassium Level 3.5 MMOL/L (3.5-5.1) Chloride Level 101 MMOL/L (98-107) Carbon Dioxide Level 25 MMOL/L (21-32) Anion Gap 10 mmol/L (5-15) Blood Urea Nitrogen 14 mg/dL (7-18) Creatinine 0.9 MG/DL (0.55-1.30) Estimat Glomerular Filtration Rate mL/min (>60) Glucose Level 123 MG/DL (74-106) H Calcium Level 9.4 MG/DL (8.5-10.1) Total Bilirubin 0.3 MG/DL (0.2-1.0) Aspartate Amino Transf (AST/SGOT) 16 U/L (15-37) Alanine Aminotransferase (ALT/SGPT) 36 U/L (12-78) Alkaline Phosphatase 88 U/L (46-116) Troponin I 0.000 ng/mL (0.000-0.056) Pro-B-Type Natriuretic Peptide 162 pg/mL (0-125) H Total Protein 6.8 G/DL (6.4-8.2) Albumin 3.8 G/DL (3.4-5.0) Globulin 3.0 g/dL Albumin/Globulin Ratio 1.3 (1.0-2.7) Hemoglobin A1c 6.2 % (4.3-6.0) H Gianluca Gray MD May 29, 2019 18:51
--- NOTE | 2019-05-29 19:58 | NUR ---
HAND-OFF: Report given to FRANDY Lan. The patient is resting on the bed without acute distress or shortness of breath. The patient's bed in the lowest position, call light in reach, and fall precaution reinforced. Asked to follow up of for pending diagnostic testings to FRANDY Lan. Endorsed plan of care.
[2019-05-29 20:00] VITALS: BP 146/66
[2019-05-29] MEDS ORDERED: Zolpidem 5mg tab ORAL PRN (20:00)
--- NOTE | 2019-05-29 20:10 | NUR ---
NURSE NOTES: Received pt and report from FRANDY Patrick. Observed pt resting in bed with both eyes open. Pt is A/Ox4. quality assurance monitor body is in placed, IV site intact, asymptomatic, and patent. Bed is in the lowest position and locked. Call light within reach. No signs and symptoms of acute distress noted at this time. Will continue plan of care.
--- NOTE | 2019-05-29 20:30 | Consultation ---
DATE OF CONSULTATION: 05/29/2019 CARDIOLOGY CONSULTATION CONSULTING PHYSICIAN: Gianluca Gray M.D. REFERRING PHYSICIAN: Theo Sutton D.O. REASON FOR CONSULTATION: Management of hypertension and syncope. HISTORY OF PRESENT ILLNESS: The patient is an 83-year-old [place] lady with hypertension, diabetes, history of CVA, as well as history of brain aneurysm status post clipping was brought in by family members after a fall. The patient does not remember how this happened. The patient was admitted to telemetry and a Cardiology consultation was obtained for further evaluation. The patient underwent an echocardiogram, which showed ejection fraction of 60 to 65 percent. Her EKG also showed sinus rhythm with right superior axis. PAST MEDICAL HISTORY: As mentioned above. MEDICATIONS: Per reconciliation include amlodipine, aspirin, Lipitor, captopril, carvedilol, hydralazine, and metoprolol. ALLERGIES: She is allergic to prednisone and penicillin. FAMILY HISTORY: Noncontributory. REVIEW OF SYSTEMS: Negative other than what is mentioned in the history of present illness. PHYSICAL EXAMINATION: VITAL SIGNS: Show blood pressure of 122/57, pulse 62, respirations 18, and she is afebrile. HEAD AND NECK: Showed no JVD. LUNGS: Clear. CARDIOVASCULAR: Shows regular S1 and S2 with no gallop. ABDOMEN: Soft. EXTREMITIES: No pitting edema. LABORATORY AND DIAGNOSTIC DATA: Labs show white count of 7.6, hemoglobin 12.7, hematocrit 36.6, and platelet count 207,000. Sodium 132, potassium 3.5, BUN of 14, creatinine 0.9, and glucose of 123. Troponin is negative. BNP is 162. INR 0.9. ASSESSMENT AND PLAN: 1. Syncope, etiology is not clear at this time. The echocardiogram showed no evidence of aortic stenosis and ejection fraction was within normal range. Neuro evaluation is also following. 2. Hypertension. On Norvasc 5 mg daily and Bystolic 5 mg daily. The patient is on p.r.n. clonidine. 3. Brain aneurysm status post clipping. 4. Hyperlipidemia. 5. Spinal stenosis. Thank you very much, Dr. Sutton, for allowing me to participate in the care of this patient. Please do not hesitate to contact me for any questions regarding my evaluation. Gianluca Gray M.D. DR: COURTNEY JOB#: [id number] CC:
[2019-05-30] VITALS: BP 132/60
[2019-05-30 04:00] VITALS: BP 134/54
[2019-05-30] MEDS: NovoLOG Insulin Flexpen SUBQ SCH ×4 (06:13→20:53)
[2019-05-30] MEDS ORDERED: metFORMIN 500mg tab ORAL SCH (06:30)
[2019-05-30] MEDS ORDERED: sitaGLIPtin 50mg tab ORAL SCH (06:30)
[2019-05-30 06:48] LABS: ALANINE AMINOTRANSFERASE 30 U/L (12-78); ALBUMIN 3.3 G/DL (3.4-5.0); ALBUMIN/GLOBULIN RATIO 1.3 (1.0-2.7); ALKALINE PHOSPHATASE 76 U/L (46-116); ANION GAP 8 mmol/L (5-15); ASPARTATE AMINO TRANSFERASE 20 U/L (15-37); BILIRUBIN,TOTAL 0.4 MG/DL (0.2-1.0); BLOOD UREA NITROGEN 13 mg/dL (7-18); CALCIUM 8.6 MG/DL (8.5-10.1); CARBON DIOXIDE 27 MMOL/L (21-32); CHLORIDE 102 MMOL/L (98-107); CHOLESTEROL 214 MG/DL (< 200); CREATININE 0.8 MG/DL (0.55-1.30); EOSINOPHILS % (AUTO) 4.5 % (0.0-3.0); HDL CHOLESTEROL 51 MG/DL (40-60); HEMATOCRIT 36.3 % (37.0-47.0); HEMOGLOBIN 12.3 G/DL (12.0-16.0); LYMPHOCYTES % (AUTO) 46.9 % (20.0-45.0); MEAN CORPUSCULAR VOLUME 90 FL (80-99); MONOCYTES % (AUTO) 10.3 % (1.0-10.0); NEUTROPHILS % (AUTO) 37.4 % (45.0-75.0); PLATELET COUNT 201 K/UL (150-450); POTASSIUM 3.8 MMOL/L (3.5-5.1); RED BLOOD COUNT 4.05 M/UL (4.20-5.40); RED CELL DISTRIBUTION WIDTH 12.1 % (11.6-14.8); SODIUM 137 MMOL/L (136-145); TRIGLYCERIDES 142 MG/DL (30-150); WHITE BLOOD COUNT 5.7 K/UL (4.8-10.8)
--- NOTE | 2019-05-30 07:20 | NUR ---
NURSE NOTES: Received report from FRANDY Lan. The patient is resting on the bed without acute distress or shortness of breath. The patient's bed in the lowest position, call light in reach, and fall and aspiration precaution reinforced. Per patient degree of leg edema and headache improved today. IV site is intact and patent. Will continue plan of care.
--- NOTE | 2019-05-30 07:39 | NUR ---
HAND-OFF: Report given to FRANDY Patrick.
[2019-05-30 08:00] VITALS: BP 140/63
--- NOTE | 2019-05-30 08:39 | Neurology Progress Note ---
Interim History Interim History ROS Limited/Unobtainable: Yes Interim History Feeling better, still dizzy when ambulating, feels good at rest mri done nad reviewed Objective Physical Exam Last Vital Signs Date Time Temp Pulse Resp B/P (MAP) Pulse Ox O2 Delivery O2 Flow Rate FiO2 05/30/19 08:00 98.3 71 18 140/63 (88) 95 05/29/19 21:00 Room Air 05/29/19 20:12 21 Laboratory Tests Test 05/29/19 09:50 05/30/19 05:40 Hemoglobin A1c 6.2 % (4.3-6.0) H 6.1 % (4.3-6.0) H White Blood Count 5.7 K/UL (4.8-10.8) Red Blood Count 4.05 M/UL (4.20-5.40) L Hemoglobin 12.3 G/DL (12.0-16.0) Hematocrit 36.3 % (37.0-47.0) L Mean Corpuscular Volume 90 FL (80-99) Mean Corpuscular Hemoglobin 30.4 PG (27.0-31.0) Mean Corpuscular Hemoglobin Concent 33.9 G/DL (32.0-36.0) Red Cell Distribution Width 12.1 % (11.6-14.8) Platelet Count 201 K/UL (150-450) Mean Platelet Volume 7.2 FL (6.5-10.1) Neutrophils (%) (Auto) 37.4 % (45.0-75.0) L Lymphocytes (%) (Auto) 46.9 % (20.0-45.0) H Monocytes (%) (Auto) 10.3 % (1.0-10.0) H Eosinophils (%) (Auto) 4.5 % (0.0-3.0) H Basophils (%) (Auto) 1.0 % (0.0-2.0) Prothrombin Time 10.4 SEC (9.30-11.50) Prothromb Time International Ratio 1.0 (0.9-1.1) Activated Partial Thromboplast Time 27 SEC (23-33) Sodium Level 137 MMOL/L (136-145) Potassium Level 3.8 MMOL/L (3.5-5.1) Chloride Level 102 MMOL/L (98-107) Carbon Dioxide Level 27 MMOL/L (21-32) Anion Gap 8 mmol/L (5-15) Blood Urea Nitrogen 13 mg/dL (7-18) Creatinine 0.8 MG/DL (0.55-1.30) Estimat Glomerular Filtration Rate mL/min (>60) Glucose Level 132 MG/DL (74-106) H Calcium Level 8.6 MG/DL (8.5-10.1) Total Bilirubin 0.4 MG/DL (0.2-1.0) Aspartate Amino Transf (AST/SGOT) 20 U/L (15-37) Alanine Aminotransferase (ALT/SGPT) 30 U/L (12-78) Alkaline Phosphatase 76 U/L (46-116) Troponin I 0.007 ng/mL (0.000-0.056) Total Protein 5.8 G/DL (6.4-8.2) L Albumin 3.3 G/DL (3.4-5.0) L Globulin 2.5 g/dL Albumin/Globulin Ratio 1.3 (1.0-2.7) Triglycerides Level 142 MG/DL (30-150) Cholesterol Level 214 MG/DL (< 200) H LDL Cholesterol 135 mg/dL (<100) H HDL Cholesterol 51 MG/DL (40-60) Cholesterol/HDL Ratio 4.2 (3.3-4.4) Thyroid Stimulating Hormone (TSH) 1.898 uiU/mL (0.358-3.740) Impression/Recommendations Problems: (1) Acute encephalopathy (2) History of hypertension (3) Spinal stenosis (4) Head injury (5) Multiple injuries due to trauma (6) Diabetes mellitus (7) Osteoarthritis (8) Brain aneurysm (9) History of CVA (cerebrovascular accident) (10) 23-polyvalent pneumococcal polysaccharide vaccine indication of diabetes in patient 6 to 64 years of age Status: stable Diagnostic Impression Reviewed mri brain - no posterior circulation stroke noted Status post aneurysm coil at the right ICA/MCA junction. Encourage ambulation PT OT No further neurological work up required at this time Justice Schmitt MD May 30, 2019 08:39
[2019-05-30] MEDS: Meclizine 25mg tab ORAL SCH ×3 (08:48→17:37)
[2019-05-30] MEDS: Bystolic 2.5mg Tab ORAL SCH (08:48)
[2019-05-30] MEDS: Aspirin EC 81mg tab ORAL SCH (08:48)
[2019-05-30] MEDS: Heparin 5000 units/ml inj SUBQ SCH ×2 (08:49→20:49)
[2019-05-30] MEDS: Miralax 17gm pkt ORAL PRN (08:50)
--- NOTE | 2019-05-30 08:55 | General Progress Note ---
Assessment/Plan Problem List: (1) syncopy (2) Spinal stenosis ICD Codes: M48.00 - Spinal stenosis, site unspecified SNOMED: 82492168, 507662565 (3) Diabetes mellitus ICD Codes: E11.9 - Type 2 diabetes mellitus without complications SNOMED: 06019854 (4) History of hypertension ICD Codes: Z86.79 - Personal history of other diseases of the circulatory system SNOMED: 006858882 (5) History of CVA (cerebrovascular accident) ICD Codes: Z86.73 - Personal history of transient ischemic attack (TIA), and cerebral infarction without residual deficits SNOMED: 959627478 (6) Brain aneurysm ICD Codes: I67.1 - Cerebral aneurysm, nonruptured SNOMED: 508204263, 964494174 Status: stable, progressing Assessment/Plan: cardio neuro f/u pt diet bp bs control cbc bmp am Subjective Constitutional: Reports: weakness Allergies: Coded Allergies: PREDNISONE (Verified Allergy, Severe, REDNESS, SWELLING, 03/06/14) PENICILLINS (Verified Allergy, Intermediate, 03/18/17) All Systems: reviewed and negative except above Subjective sleepy calm Objective Last 24 Hour Vital Signs Date Time Temp Pulse Resp B/P (MAP) Pulse Ox O2 Delivery O2 Flow Rate FiO2 05/30/19 08:00 98.3 71 18 140/63 (88) 95 05/30/19 04:00 57 05/30/19 04:00 98.3 63 18 134/54 (80) 95 05/30/19 00:00 63 05/30/19 00:00 98.7 70 17 132/60 (84) 97 05/29/19 21:00 Room Air 05/29/19 20:12 63 20 94 Room Air 21 05/29/19 20:10 73 05/29/19 20:05 73 05/29/19 20:00 98.7 69 18 146/66 (92) 96 05/29/19 20:00 69 05/29/19 20:00 63 05/29/19 17:33 62 123/57 05/29/19 16:00 98.2 62 18 123/57 (79) 98 05/29/19 16:00 60 05/29/19 12:00 98.4 64 18 123/64 (83) 98 05/29/19 12:00 75 05/29/19 09:55 73 20 95 Room Air 21 05/29/19 09:10 83 05/29/19 09:05 73 05/29/19 09:00 76 05/29/19 09:00 Room Air Intake and Output 05/29/19 05/30/19 19:00 07:00 Intake Total 480 ml Balance 480 ml Intake Oral 480 ml # Voids 4 2 Laboratory Tests 05/29/19 09:50: Hemoglobin A1c 6.2H 05/30/19 05:40: Hemoglobin A1c 6.1H, White Blood Count 5.7, Red Blood Count 4.05L, Hemoglobin 12.3, Hematocrit 36.3L, Mean Corpuscular Volume 90, Mean Corpuscular Hemoglobin 30.4, Mean Corpuscular Hemoglobin Concent 33.9, Red Cell Distribution Width 12.1 , Platelet Count 201, Mean Platelet Volume 7.2, Neutrophils (%) (Auto) 37.4L, Lymphocytes (%) (Auto) 46.9H, Monocytes (%) (Auto) 10.3H, Eosinophils (%) (Auto ) 4.5H, Basophils (%) (Auto) 1.0, Prothrombin Time 10.4, Prothromb Time International Ratio 1.0, Activated Partial Thromboplast Time 27, Sodium Level 137, Potassium Level 3.8, Chloride Level 102, Carbon Dioxide Level 27, Anion Gap 8, Blood Urea Nitrogen 13, Creatinine 0.8, Estimat Glomerular Filtration Rate , Glucose Level 132H, Calcium Level 8.6, Total Bilirubin 0.4, Aspartate Amino Transf (AST/SGOT) 20, Alanine Aminotransferase (ALT/SGPT) 30, Alkaline Phosphatase 76, Troponin I 0.007, Total Protein 5.8L, Albumin 3.3L, Globulin 2.5 , Albumin/Globulin Ratio 1.3, Triglycerides Level 142, Cholesterol Level 214H, LDL Cholesterol 135H, HDL Cholesterol 51, Cholesterol/HDL Ratio 4.2, Thyroid Stimulating Hormone (TSH) 1.898 Height (Feet): 5 Height (Inches): 5.00 Weight (Pounds): 167 General Appearance: lethargic EENT: normal ENT inspection Neck: normal alignment Cardiovascular: normal peripheral pulses, normal rate, regular rhythm Respiratory/Chest: chest wall non-tender, lungs clear, normal breath sounds Abdomen: normal bowel sounds, non tender, soft Extremities: normal inspection Edema: no edema noted Arm (L), no edema noted Arm (R), no edema noted Leg (L), no edema noted Leg (R), no edema noted Pedal (L), no edema noted Pedal (R), no edema noted Generalized Neurologic: motor weakness Skin: normal pigmentation, warm/dry Theo Sutton DO May 30, 2019 08:55
--- NOTE | 2019-05-30 11:24 | Diagnostic Imaging Report ---
APPROVED REPORT CPT Code: 55369 Present Symptoms Comments: Pain BILATERAL: Imaging reveals a patent deep venous system bilaterally. There is no evidence of thrombus within the common femoral, superficial femoral, popliteal or tibial segments. The greater saphenous veins are within normal limits. Doppler indicates normal spontaneous flow within these segments. Incidental finding: Enlarged bakers cyst noted at the right popliteal knee level.
--- NOTE | 2019-05-30 11:26 | Diagnostic Imaging Report ---
APPROVED REPORT CPT Code: 68270 Vascular Symptoms CVA/TIA: Doppler Spectral Velocity Analysis RightLeft arteries. The Doppler spectral flow analysis indicates the degree of stenosis is minimal (10%) in the common carotid artery, mild (40%) in the internal carotid artery, and mild (30%) in the external carotid artery. VERTEBRAL- The vertebral artery is patent, without evidence of stenosis or steal. arteries. The Doppler spectral flow analysis indicates the degree of stenosis is minimal (20%) in the common carotid artery, mild (40%) in the internal carotid artery, and minimal (10%) in the external carotid artery. VERTEBRAL- The vertebral artery is patent, without evidence of stenosis or steal.
[2019-05-30 12:00] VITALS: BP 137/73
--- NOTE | 2019-05-30 12:19 | Pulmonology Progress Note ---
Assessment/Plan Problems: (1) Acute encephalopathy (2) Brain aneurysm (3) Spinal stenosis (4) History of hypertension (5) Diabetes mellitus (6) Osteoarthritis Assessment/Plan better still episodes of dizziness sliding scale diabetic diet she wants insulin only once a day Subjective ROS Limited/Unobtainable: No Constitutional: Reports: no symptoms Allergies: Coded Allergies: PREDNISONE (Verified Allergy, Severe, REDNESS, SWELLING, 03/06/14) PENICILLINS (Verified Allergy, Intermediate, 03/18/17) Objective Last 24 Hour Vital Signs Date Time Temp Pulse Resp B/P (MAP) Pulse Ox O2 Delivery O2 Flow Rate FiO2 05/30/19 09:00 Room Air 05/30/19 08:10 76 05/30/19 08:05 71 05/30/19 08:00 98.3 71 18 140/63 (88) 95 05/30/19 08:00 75 05/30/19 08:00 68 05/30/19 07:19 70 20 95 Room Air 21 05/30/19 04:00 57 05/30/19 04:00 98.3 63 18 134/54 (80) 95 05/30/19 00:00 63 05/30/19 00:00 98.7 70 17 132/60 (84) 97 05/29/19 21:00 Room Air 05/29/19 20:12 63 20 94 Room Air 21 05/29/19 20:10 73 05/29/19 20:05 73 05/29/19 20:00 98.7 69 18 146/66 (92) 96 05/29/19 20:00 69 05/29/19 20:00 63 05/29/19 17:33 62 123/57 05/29/19 16:00 98.2 62 18 123/57 (79) 98 05/29/19 16:00 60 Intake and Output 05/29/19 05/30/19 19:00 07:00 Intake Total 480 ml Balance 480 ml Intake Oral 480 ml # Voids 4 2 General Appearance: WD/WN, no acute distress HEENT: normocephalic, atraumatic Respiratory/Chest: chest wall non-tender, lungs clear Breasts: no masses Cardiovascular: normal peripheral pulses Abdomen: normal bowel sounds, soft, non tender Genitourinary: normal external genitalia Extremities: no clubbing Skin: no rash Laboratory Tests 05/30/19 05:40: White Blood Count 5.7, Red Blood Count 4.05L, Hemoglobin 12.3, Hematocrit 36.3L , Mean Corpuscular Volume 90, Mean Corpuscular Hemoglobin 30.4, Mean Corpuscular Hemoglobin Concent 33.9, Red Cell Distribution Width 12.1, Platelet Count 201, Mean Platelet Volume 7.2, Neutrophils (%) (Auto) 37.4L, Lymphocytes ( %) (Auto) 46.9H, Monocytes (%) (Auto) 10.3H, Eosinophils (%) (Auto) 4.5H, Basophils (%) (Auto) 1.0, Prothrombin Time 10.4, Prothromb Time International Ratio 1.0, Activated Partial Thromboplast Time 27, Sodium Level 137, Potassium Level 3.8, Chloride Level 102, Carbon Dioxide Level 27, Anion Gap 8, Blood Urea Nitrogen 13, Creatinine 0.8, Estimat Glomerular Filtration Rate , Glucose Level 132H, Hemoglobin A1c 6.1H, Calcium Level 8.6, Total Bilirubin 0.4, Aspartate Amino Transf (AST/SGOT) 20, Alanine Aminotransferase (ALT/SGPT) 30, Alkaline Phosphatase 76, Troponin I 0.007, Total Protein 5.8L, Albumin 3.3L, Globulin 2.5 , Albumin/Globulin Ratio 1.3, Triglycerides Level 142, Cholesterol Level 214H, LDL Cholesterol 135H, HDL Cholesterol 51, Cholesterol/HDL Ratio 4.2, Thyroid Stimulating Hormone (TSH) 1.898 Current Medications Medications (Trade) Dose Ordered Sig/Ethan Route PRN Reason Start Time Stop Time Status Last Admin Dose Admin Acetaminophen (Tylenol) 650 mg Q4H PRN ORAL Mild Pain/Temp > 100.5 05/30/19 09:00 06/28/19 08:59 05/30/19 08:52 Al Hydroxide/Mg Hydroxide (Mylanta II) 30 ml Q6H PRN ORAL dyspepsia 05/29/19 02:00 06/28/19 01:59 Albuterol/ Ipratropium (Albuterol/ Ipratropium) 3 ml Q4H PRN HHN Shortness of Breath 05/29/19 02:00 06/03/19 01:59 Amlodipine Besylate (Norvasc) 5 mg DAILY@1700 ORAL 05/29/19 17:00 06/28/19 15:59 05/29/19 17:33 Aspirin (Ecotrin) 81 mg DAILY ORAL 05/29/19 09:00 06/28/19 08:59 05/30/19 08:48 Clonidine HCl (Catapres Tab) 0.1 mg Q4H PRN ORAL For High Blood Pressure 05/29/19 02:00 06/28/19 01:59 Dextrose (Dextrose 50%) 25 ml Q30M PRN IV Hypoglycemia 05/29/19 02:00 06/28/19 01:59 Dextrose (Dextrose 50%) 50 ml Q30M PRN IV Hypoglycemia 05/29/19 02:00 06/28/19 01:59 Heparin Sodium (Porcine) (Heparin 5000 units/ml) 5,000 units EVERY 12 HOURS SUBQ 05/29/19 09:00 06/28/19 08:59 05/30/19 08:49 Ibuprofen (Advil) 400 mg TIDPRN PRN ORAL Mild Pain (Pain Scale 1-3) 05/29/19 11:45 06/28/19 11:44 05/29/19 12:13 Insulin Aspart (NovoLOG) BEFORE MEALS AND HS SUBQ 05/29/19 16:30 06/28/19 16:29 05/30/19 06:13 Ketorolac Tromethamine (Toradol 30mg) 30 mg Q6H PRN IV severe pain -05/29/19 12:00 06/03/19 11:59 Lorazepam (Ativan 2mg/ml 1ml) 0.5 mg Q4H PRN IV For Anxiety 05/29/19 02:00 06/05/19 01:59 Meclizine HCl (Antivert) 25 mg TID ORAL 05/29/19 09:00 06/28/19 08:59 05/30/19 08:48 Metformin HCl (Glucophage) 500 mg ACBREAKFAST ORAL 05/30/19 06:30 06/29/19 06:29 05/30/19 06:11 Morphine Sulfate (Morphine Sulfate) 1 mg Q4H PRN IVP For Pain -05/29/19 02:00 06/05/19 01:59 Nebivolol (Bystolic) 5 mg DAILY ORAL 05/29/19 09:00 06/28/19 08:59 05/30/19 08:48 Nitroglycerin (Ntg) 0.4 mg Q5M X 3 DOSES PRN SL Prn Chest Pain 05/29/19 02:00 06/28/19 01:59 Ondansetron HCl (Zofran) 4 mg Q6H PRN IVP Nausea & Vomiting 05/29/19 08:00 06/28/19 07:59 Ondansetron HCl (Zofran) 4 mg TIDPRN PRN ORAL Nausea & Vomiting 05/29/19 08:00 06/28/19 07:59 Polyethylene Glycol (Miralax) 17 gm DAILYPRN PRN ORAL Constipation 05/30/19 08:30 06/28/19 01:59 05/30/19 08:50 Sitagliptin Phosphate (Januvia) 50 mg ACBREAKFAST ORAL 05/30/19 06:30 06/29/19 06:29 05/30/19 06:11 Temazepam (Restoril) 15 mg HSPRN PRN ORAL Insomnia 05/29/19 02:00 06/05/19 01:59 05/29/19 21:33 Jessi Porter MD May 30, 2019 12:19
--- NOTE | 2019-05-30 12:24 | Cardiac Electrophysiology PN ---
Assessment/Plan Assessment/Plan 1. Syncope, etiology is not clear at this time. The echocardiogram showed no evidence of aortic stenosis and ejection fraction was within normal range. Neuro evaluation is in progress 2. Hypertension. On Norvasc 5 mg daily and Bystolic 5 mg daily. Also on p.r.n. clonidine. 3. Brain aneurysm status post clipping. 4. Hyperlipidemia. 5. Spinal stenosis. Subjective Subjective No CP or SOB. Remained in SR. Objective Last 24 Hour Vital Signs Date Time Temp Pulse Resp B/P (MAP) Pulse Ox O2 Delivery O2 Flow Rate FiO2 05/30/19 12:00 98.1 69 18 137/73 (94) 96 05/30/19 09:00 Room Air 05/30/19 08:10 76 05/30/19 08:05 71 05/30/19 08:00 98.3 71 18 140/63 (88) 95 05/30/19 08:00 75 05/30/19 08:00 68 05/30/19 07:19 70 20 95 Room Air 21 05/30/19 04:00 57 05/30/19 04:00 98.3 63 18 134/54 (80) 95 05/30/19 00:00 63 05/30/19 00:00 98.7 70 17 132/60 (84) 97 05/29/19 21:00 Room Air 05/29/19 20:12 63 20 94 Room Air 21 05/29/19 20:10 73 05/29/19 20:05 73 05/29/19 20:00 98.7 69 18 146/66 (92) 96 05/29/19 20:00 69 05/29/19 20:00 63 05/29/19 17:33 62 123/57 05/29/19 16:00 98.2 62 18 123/57 (79) 98 05/29/19 16:00 60 Intake and Output 05/29/19 05/30/19 19:00 07:00 Intake Total 480 ml Balance 480 ml Intake Oral 480 ml # Voids 4 2 Laboratory Tests Test 05/30/19 05:40 White Blood Count 5.7 K/UL (4.8-10.8) Red Blood Count 4.05 M/UL (4.20-5.40) L Hemoglobin 12.3 G/DL (12.0-16.0) Hematocrit 36.3 % (37.0-47.0) L Mean Corpuscular Volume 90 FL (80-99) Mean Corpuscular Hemoglobin 30.4 PG (27.0-31.0) Mean Corpuscular Hemoglobin Concent 33.9 G/DL (32.0-36.0) Red Cell Distribution Width 12.1 % (11.6-14.8) Platelet Count 201 K/UL (150-450) Mean Platelet Volume 7.2 FL (6.5-10.1) Neutrophils (%) (Auto) 37.4 % (45.0-75.0) L Lymphocytes (%) (Auto) 46.9 % (20.0-45.0) H Monocytes (%) (Auto) 10.3 % (1.0-10.0) H Eosinophils (%) (Auto) 4.5 % (0.0-3.0) H Basophils (%) (Auto) 1.0 % (0.0-2.0) Prothrombin Time 10.4 SEC (9.30-11.50) Prothromb Time International Ratio 1.0 (0.9-1.1) Activated Partial Thromboplast Time 27 SEC (23-33) Sodium Level 137 MMOL/L (136-145) Potassium Level 3.8 MMOL/L (3.5-5.1) Chloride Level 102 MMOL/L (98-107) Carbon Dioxide Level 27 MMOL/L (21-32) Anion Gap 8 mmol/L (5-15) Blood Urea Nitrogen 13 mg/dL (7-18) Creatinine 0.8 MG/DL (0.55-1.30) Estimat Glomerular Filtration Rate mL/min (>60) Glucose Level 132 MG/DL (74-106) H Hemoglobin A1c 6.1 % (4.3-6.0) H Calcium Level 8.6 MG/DL (8.5-10.1) Total Bilirubin 0.4 MG/DL (0.2-1.0) Aspartate Amino Transf (AST/SGOT) 20 U/L (15-37) Alanine Aminotransferase (ALT/SGPT) 30 U/L (12-78) Alkaline Phosphatase 76 U/L (46-116) Troponin I 0.007 ng/mL (0.000-0.056) Total Protein 5.8 G/DL (6.4-8.2) L Albumin 3.3 G/DL (3.4-5.0) L Globulin 2.5 g/dL Albumin/Globulin Ratio 1.3 (1.0-2.7) Triglycerides Level 142 MG/DL (30-150) Cholesterol Level 214 MG/DL (< 200) H LDL Cholesterol 135 mg/dL (<100) H HDL Cholesterol 51 MG/DL (40-60) Cholesterol/HDL Ratio 4.2 (3.3-4.4) Thyroid Stimulating Hormone (TSH) 1.898 uiU/mL (0.358-3.740) Objective HEAD AND NECK: Showed no JVD. LUNGS: Clear. CARDIOVASCULAR: Shows regular S1 and S2 with no gallop. ABDOMEN: Soft. EXTREMITIES: No pitting edema. Gianluca Gray MD May 30, 2019 12:24
[2019-05-30 16:00] VITALS: BP 134/54
--- NOTE | 2019-05-30 16:04 | Cardiology Report ---
APPROVED REPORT EKG Measurement Heart [id number] Suspect arm lead reversal, interpretation assumes no reversal Normal sinus rhythm Right superior axis deviation Pulmonary disease pattern Abnormal ECG
[2019-05-30] MEDS ORDERED: MULTIVITAMINS1 EAC2 ORAL (19:24)
[2019-05-30] MEDS ORDERED: HYDRALAZINE HCL25 M1 ORAL (19:26)
--- NOTE | 2019-05-30 19:38 | NUR ---
HAND-OFF: Report given to FRANDY Menchaca. The patient is resting on the bed without acute distress or shortness of breath. The patient's bed in the lowest position, call light in reach, and fall and aspiration precaution reinforced. Endorsed plan of care.
--- NOTE | 2019-05-30 19:39 | NUR ---
NURSE NOTES: Got report from Celina WISE. Pt in stable condition. Denies any pain. No s/s of distress or discomfort noted. Pt resting in bed comfortably. Bed in low and locked position, call light within reach, bedside table within reach. Continue to monitor.
[2019-05-30 20:00] VITALS: BP 148/64
[2019-05-31] VITALS: BP 141/62
--- NOTE | 2019-05-31 02:45 | Consultation ---
DATE OF CONSULTATION: 05/30/2019 ENDOCRINOLOGY CONSULTATION CONSULTING PHYSICIAN: Paul Phillips M.D. REFERRING PHYSICIAN: Theo Sutton D.O. REASON FOR CONSULTATION: Diabetes management. HISTORY OF PRESENT ILLNESS: This is an 83-year-old female brought by family member after a recent fall. The patient had a fall on the day before, does not recall how she ended up on the ground, reports increased pain to the lower spine as well as headache. She reports striking her head. She reports being felt somewhat dizzy. She also reports having some tightness in her neck. PAST MEDICAL HISTORY: Chronic low back pain and is currently using Voltaren gel. She has recently had an epidural injection a few months ago, noticed increased swelling of both legs. No palpitation. No loss of consciousness. The patient is diabetic. Glucose on presentation was over 300. The patient has a history of brain aneurysm status post clipping as well as spinal stenosis. OUTPATIENT REGIMEN: The patient is on Janumet for diabetes. For the rest of her medications, please see reconciliation form. ALLERGIES: Penicillin and prednisone. FAMILY HISTORY: Noncontributory. SOCIAL HISTORY: No smoking, alcohol, or drug use. REVIEW OF SYSTEMS: A 12-point review of systems was performed and pertinent positives and negatives as noted in the history of present illness. PHYSICAL EXAMINATION: GENERAL: She is awake and alert. VITAL SIGNS: Blood pressure 130/50, pulse of 70, temperature of 98, and respirations 18. HEENT: Pupils are reactive to light. Sclerae anicteric. NECK: No jugular venous distention. Normocephalic. LUNGS: Clear. HEART: Regular rate and rhythm. ABDOMEN: Positive bowel sounds. EXTREMITIES: No clubbing, cyanosis, or edema. LABORATORY DATA: Sodium 137, potassium 3.8, chloride 102, bicarb 27, BUN 13, creatinine 0.8, and glucose 132. Hemoglobin A1c of 6.2. TSH of 1.8. DIAGNOSIS: 1. Syncope of unknown etiology. 2. History of brain aneurysm. 3. Diabetes, out of control. PLAN: 1. Increase Januvia to 100 mg daily and increase metformin to 1000 mg b.i.d. 2. Continue NovoLog sliding scale before meals and at bedtime. 3. Further adjustment according to blood glucose values. Thank you, Dr. Sutton, for the courtesy of this consultation. Paul Phillips M.D. DR: LUCINDA JOB#: [id number] CC: RAZA
[2019-05-31 04:20] VITALS: BP 138/67
[2019-05-31] MEDS: NovoLOG Insulin Flexpen SUBQ SCH ×2 (06:16→11:30)
[2019-05-31 06:29] LABS: BASOPHILS % (AUTO) 1.1 % (0.0-2.0); EOSINOPHILS % (AUTO) 3.3 % (0.0-3.0); HEMATOCRIT 37.9 % (37.0-47.0); HEMOGLOBIN 12.6 G/DL (12.0-16.0); LYMPHOCYTES % (AUTO) 48.8 % (20.0-45.0); MEAN CORPUSCULAR VOLUME 90 FL (80-99); MONOCYTES % (AUTO) 8.5 % (1.0-10.0); NEUTROPHILS % (AUTO) 38.4 % (45.0-75.0); PLATELET COUNT 214 K/UL (150-450); WHITE BLOOD COUNT 6.1 K/UL (4.8-10.8)
[2019-05-31] MEDS ORDERED: sitaGLIPtin 50mg tab ORAL SCH (06:30)
--- NOTE | 2019-05-31 06:30 | NUR ---
NURSE NOTES: Pt pulled out IV site. Educated pt on importance of having an iv site and that I needed to insert another one, but she refuses an iv site and says that "I'm going home why do I need an IV site." I told her that she does not have a discharge order yet and the doctor still has to clear her but she still refuses to have an iv site. Continue to monitor.
[2019-05-31 06:48] LABS: ANION GAP 10 mmol/L (5-15); BLOOD UREA NITROGEN 15 mg/dL (7-18); CALCIUM 9.1 MG/DL (8.5-10.1); CARBON DIOXIDE 25 MMOL/L (21-32); CHLORIDE 102 MMOL/L (98-107); CREATININE 0.8 MG/DL (0.55-1.30); POTASSIUM 3.9 MMOL/L (3.5-5.1); SODIUM 137 MMOL/L (136-145)
--- NOTE | 2019-05-31 07:00 | NUR ---
HAND-OFF: Report given to Alejandra WISE. Endorsed plan of care.
--- NOTE | 2019-05-31 07:06 | Pulmonology Progress Note ---
Assessment/Plan Assessment/Plan ASSESSMENT s/p recent fall with LOC Syncopal episode/ unclear etiology Acute encephalopathy-resolved Hx of brain aneurysm, s/p coil right ICA/MCA junction ( 2 years ago) DM HTN Hypercholesterolemia Mild carotid stenosis Osteoarthritis Spinal stenosis Head injury Multiple injures due to trauma PLAN OF CARE tele-stable CT head no acute intracranial pathology CT L-spine -multilevel degenerative changes serial troponin negative , EKG no acute ischemic changes patient was ruled out for acute CT ECHO with pEF 60-65%, RVSP 34, mild to moderate MR venous duplex BLE - no acute DVT , 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 DVT prophylaxis brain MRI- no acute intracranial pathology no orthostatic changes neuro follows no additional neuro work-up indicated as per neuro carotid duplex - mild 40% carotid stenosis bilateral ICA , already on aspirin lipid panel with elevated TC and LDL ; at home on Lipitor educated on low fat ,low cholesterol , diabetic ,cardiac diet BP management with CCB and BB BS management with Januvia , metformin and SSI prn, Hg A1c -6.2 endo follows, metformin dose uptitrated meclizine prn fall precautions OOB as tolerated PT pain management supportive care bowel regimen discussed with granddaughter Glendy. Pt's daughter Shelley out of town till later Tuesday night( out of [facility]), not safe for pt to go home and stay alone in view of recent syncope. Dc plan for Tuesday ( if ride will be available), since daughter coming late Tuesday or dc Tuesday am case discussed and evaluated by supervising physician Subjective Allergies: Coded Allergies: PREDNISONE (Verified Allergy, Severe, REDNESS, SWELLING, 03/06/14) PENICILLINS (Verified Allergy, Intermediate, 03/18/17) Subjective denies dizziness, headache wants to go home Objective Last 24 Hour Vital Signs Date Time Temp Pulse Resp B/P (MAP) Pulse Ox O2 Delivery O2 Flow Rate FiO2 05/31/19 04:20 98.1 65 20 138/67 (90) 99 05/31/19 04:20 64 05/31/19 00:00 65 05/31/19 00:00 98.2 63 20 141/62 (88) 98 05/30/19 21:00 Room Air 05/30/19 20:00 64 05/30/19 20:00 61 20 94 Room Air 21 05/30/19 20:00 98.0 64 20 148/64 (92) 96 05/30/19 17:05 63 134/54 05/30/19 16:00 70 05/30/19 16:00 98.3 63 18 134/54 (80) 95 05/30/19 12:00 62 05/30/19 12:00 98.1 69 18 137/73 (94) 96 05/30/19 09:00 Room Air 05/30/19 08:10 76 05/30/19 08:05 71 05/30/19 08:00 98.3 71 18 140/63 (88) 95 05/30/19 08:00 75 05/30/19 08:00 68 05/30/19 07:19 70 20 95 Room Air 21 Intake and Output 05/30/19 05/31/19 18:59 06:59 Intake Total 440 ml Balance 440 ml Intake Oral 440 ml # Voids 5 2 General Appearance: no acute distress, other - awake and alert Mauritanian speaking female HEENT: normocephalic, atraumatic, anicteric, mucous membranes moist Respiratory/Chest: lungs clear, no respiratory distress, no accessory muscle use Cardiovascular: normal peripheral pulses, normal rate, regular rhythm - SR on tele Abdomen: soft, non tender, non distended Neurologic/Psychiatric: abnormal gait - unsteady , alert, oriented x 3, responsive Musculoskeletal: normal muscle bulk Laboratory Tests 05/31/19 05:31: White Blood Count 6.1, Red Blood Count 4.20, Hemoglobin 12.6, Hematocrit 37.9, Mean Corpuscular Volume 90, Mean Corpuscular Hemoglobin 29.9, Mean Corpuscular Hemoglobin Concent 33.2, Red Cell Distribution Width 12.0, Platelet Count 214, Mean Platelet Volume 7.6, Neutrophils (%) (Auto) 38.4L, Lymphocytes (%) (Auto) 48.8H, Monocytes (%) (Auto) 8.5, Eosinophils (%) (Auto) 3.3H, Basophils (%) ( Auto) 1.1, Sodium Level 137, Potassium Level 3.9, Chloride Level 102, Carbon Dioxide Level 25, Anion Gap 10, Blood Urea Nitrogen 15, Creatinine 0.8, Estimat Glomerular Filtration Rate , Glucose Level 137H, Calcium Level 9.1 Current Medications Medications (Trade) Dose Ordered Sig/Ethan Route PRN Reason Start Time Stop Time Status Last Admin Dose Admin Acetaminophen (Tylenol) 650 mg Q4H PRN ORAL Mild Pain/Temp > 100.5 05/30/19 09:00 06/28/19 08:59 05/30/19 08:52 Al Hydroxide/Mg Hydroxide (Mylanta II) 30 ml Q6H PRN ORAL dyspepsia 05/29/19 02:00 06/28/19 01:59 Albuterol/ Ipratropium (Albuterol/ Ipratropium) 3 ml Q4H PRN HHN Shortness of Breath 05/29/19 02:00 06/03/19 01:59 Amlodipine Besylate (Norvasc) 5 mg DAILY@1700 ORAL 05/29/19 17:00 06/28/19 15:59 05/30/19 17:05 Aspirin (Ecotrin) 81 mg DAILY ORAL 05/29/19 09:00 06/28/19 08:59 05/30/19 08:48 Clonidine HCl (Catapres Tab) 0.1 mg Q4H PRN ORAL For High Blood Pressure 05/29/19 02:00 06/28/19 01:59 Dextrose (Dextrose 50%) 25 ml Q30M PRN IV Hypoglycemia 05/29/19 02:00 06/28/19 01:59 Dextrose (Dextrose 50%) 50 ml Q30M PRN IV Hypoglycemia 05/29/19 02:00 06/28/19 01:59 Heparin Sodium (Porcine) (Heparin 5000 units/ml) 5,000 units EVERY 12 HOURS SUBQ 05/29/19 09:00 06/28/19 08:59 05/30/19 20:49 Ibuprofen (Advil) 400 mg TIDPRN PRN ORAL Mild Pain (Pain Scale 1-3) 05/29/19 11:45 06/28/19 11:44 05/29/19 12:13 Insulin Aspart (NovoLOG) BEFORE MEALS AND HS SUBQ 05/29/19 16:30 06/28/19 16:29 05/30/19 17:04 Ketorolac Tromethamine (Toradol 30mg) 30 mg Q6H PRN IV severe pain 7-10 05/29/19 12:00 06/03/19 11:59 Lorazepam (Ativan 2mg/ml 1ml) 0.5 mg Q4H PRN IV For Anxiety 05/29/19 02:00 06/05/19 01:59 Meclizine HCl (Antivert) 25 mg TID ORAL 05/29/19 09:00 06/28/19 08:59 05/30/19 17:37 Metformin HCl (Glucophage) 1,000 mg BID ORAL 05/31/19 09:00 06/29/19 06:29 Morphine Sulfate (Morphine Sulfate) 1 mg Q4H PRN IVP For Pain 06-0605/29/19 02:00 06/05/19 01:59 Nebivolol (Bystolic) 5 mg DAILY ORAL 05/29/19 09:00 06/28/19 08:59 05/30/19 08:48 Nitroglycerin (Ntg) 0.4 mg Q5M X 3 DOSES PRN SL Prn Chest Pain 05/29/19 02:00 06/28/19 01:59 Ondansetron HCl (Zofran) 4 mg Q6H PRN IVP Nausea & Vomiting 05/29/19 08:00 06/28/19 07:59 Ondansetron HCl (Zofran) 4 mg TIDPRN PRN ORAL Nausea & Vomiting 05/29/19 08:00 06/28/19 07:59 Polyethylene Glycol (Miralax) 17 gm DAILYPRN PRN ORAL Constipation 05/30/19 08:30 06/28/19 01:59 05/30/19 08:50 Sitagliptin Phosphate (Januvia) 100 mg ACBREAKFAST ORAL 05/31/19 06:30 06/29/19 06:29 05/31/19 06:19 Temazepam (Restoril) 15 mg HSPRN PRN ORAL Insomnia 05/29/19 02:00 06/05/19 01:59 05/30/19 20:48 Jessica Funez [employer] May 31, 2019 07:06
--- NOTE | 2019-05-31 07:06 | NUR ---
NURSE NOTES: Report received from FRANDY Vela. Patient AOx4. Having breakfast. Voiced wanting to go home. Night nurse explained per family no body at home today. Will follow up with MD. No IV at this time. Refused for another IV access. Bed on lowest position, side rails upx2, brakes engaged. Call light within easy reach.
--- NOTE | 2019-05-31 07:53 | General Progress Note ---
Assessment/Plan Problem List: (1) History of CVA (cerebrovascular accident) ICD Codes: Z86.73 - Personal history of transient ischemic attack (TIA), and cerebral infarction without residual deficits SNOMED: 255467735 (2) Diabetes mellitus ICD Codes: E11.9 - Type 2 diabetes mellitus without complications SNOMED: 93363800 (3) syncopy Status: stable, progressing Assessment/Plan: continue Metformin 1000 mg bid continue Januvia 100 mg daily continue NISS ac / hs Subjective Allergies: Coded Allergies: PREDNISONE (Verified Allergy, Severe, REDNESS, SWELLING, 03/06/14) PENICILLINS (Verified Allergy, Intermediate, 03/18/17) All Systems: reviewed and negative except above Subjective events noted Item Value Date Time Bedside Blood Glucose 122 mg/dl H 05/31/19 0630 Bedside Blood Glucose 126 mg/dl H 05/30/19 2100 Bedside Blood Glucose 132 mg/dl H 05/30/19 1704 Bedside Blood Glucose 97 mg/dl 05/30/19 1130 Objective Last 24 Hour Vital Signs Date Time Temp Pulse Resp B/P (MAP) Pulse Ox O2 Delivery O2 Flow Rate FiO2 05/31/19 04:20 98.1 65 20 138/67 (90) 99 05/31/19 04:20 64 05/31/19 00:00 65 05/31/19 00:00 98.2 63 20 141/62 (88) 98 05/30/19 21:00 Room Air 05/30/19 20:00 64 05/30/19 20:00 61 20 94 Room Air 21 05/30/19 20:00 98.0 64 20 148/64 (92) 96 05/30/19 17:05 63 134/54 05/30/19 16:00 70 05/30/19 16:00 98.3 63 18 134/54 (80) 95 05/30/19 12:00 62 05/30/19 12:00 98.1 69 18 137/73 (94) 96 05/30/19 09:00 Room Air 05/30/19 08:10 76 05/30/19 08:05 71 05/30/19 08:00 98.3 71 18 140/63 (88) 95 05/30/19 08:00 75 05/30/19 08:00 68 Intake and Output 05/30/19 05/31/19 18:59 06:59 Intake Total 440 ml Balance 440 ml Intake Oral 440 ml # Voids 5 2 Laboratory Tests 05/31/19 05:31: White Blood Count 6.1, Red Blood Count 4.20, Hemoglobin 12.6, Hematocrit 37.9, Mean Corpuscular Volume 90, Mean Corpuscular Hemoglobin 29.9, Mean Corpuscular Hemoglobin Concent 33.2, Red Cell Distribution Width 12.0, Platelet Count 214, Mean Platelet Volume 7.6, Neutrophils (%) (Auto) 38.4L, Lymphocytes (%) (Auto) 48.8H, Monocytes (%) (Auto) 8.5, Eosinophils (%) (Auto) 3.3H, Basophils (%) ( Auto) 1.1, Sodium Level 137, Potassium Level 3.9, Chloride Level 102, Carbon Dioxide Level 25, Anion Gap 10, Blood Urea Nitrogen 15, Creatinine 0.8, Estimat Glomerular Filtration Rate , Glucose Level 137H, Calcium Level 9.1 Height (Feet): 5 Height (Inches): 5.00 Weight (Pounds): 167 General Appearance: no apparent distress Neck: normal alignment Cardiovascular: normal rate Respiratory/Chest: lungs clear Abdomen: normal bowel sounds Pelvis: normal external exam Objective Current Medications Medications (Trade) Dose Ordered Sig/Ethan Route PRN Reason Start Time Stop Time Status Last Admin Dose Admin Acetaminophen (Tylenol) 650 mg Q4H PRN ORAL Mild Pain/Temp > 100.5 05/30/19 09:00 06/28/19 08:59 05/30/19 08:52 Al Hydroxide/Mg Hydroxide (Mylanta II) 30 ml Q6H PRN ORAL dyspepsia 05/29/19 02:00 06/28/19 01:59 Albuterol/ Ipratropium (Albuterol/ Ipratropium) 3 ml Q4H PRN HHN Shortness of Breath 05/29/19 02:00 06/03/19 01:59 Amlodipine Besylate (Norvasc) 5 mg DAILY@1700 ORAL 05/29/19 17:00 06/28/19 15:59 05/30/19 17:05 Aspirin (Ecotrin) 81 mg DAILY ORAL 05/29/19 09:00 06/28/19 08:59 05/30/19 08:48 Clonidine HCl (Catapres Tab) 0.1 mg Q4H PRN ORAL For High Blood Pressure 05/29/19 02:00 06/28/19 01:59 Dextrose (Dextrose 50%) 25 ml Q30M PRN IV Hypoglycemia 05/29/19 02:00 06/28/19 01:59 Dextrose (Dextrose 50%) 50 ml Q30M PRN IV Hypoglycemia 05/29/19 02:00 06/28/19 01:59 Heparin Sodium (Porcine) (Heparin 5000 units/ml) 5,000 units EVERY 12 HOURS SUBQ 05/29/19 09:00 06/28/19 08:59 05/30/19 20:49 Ibuprofen (Advil) 400 mg TIDPRN PRN ORAL Mild Pain (Pain Scale 1-3) 05/29/19 11:45 06/28/19 11:44 05/29/19 12:13 Insulin Aspart (NovoLOG) BEFORE MEALS AND HS SUBQ 05/29/19 16:30 06/28/19 16:29 05/30/19 17:04 Ketorolac Tromethamine (Toradol 30mg) 30 mg Q6H PRN IV severe pain 06-0605/29/19 12:00 06/03/19 11:59 Lorazepam (Ativan 2mg/ml 1ml) 0.5 mg Q4H PRN IV For Anxiety 05/29/19 02:00 06/05/19 01:59 Meclizine HCl (Antivert) 25 mg TID ORAL 05/29/19 09:00 06/28/19 08:59 05/30/19 17:37 Metformin HCl (Glucophage) 1,000 mg BID ORAL 05/31/19 09:00 06/29/19 06:29 Morphine Sulfate (Morphine Sulfate) 1 mg Q4H PRN IVP For Pain -05/29/19 02:00 06/05/19 01:59 Nebivolol (Bystolic) 5 mg DAILY ORAL 05/29/19 09:00 06/28/19 08:59 05/30/19 08:48 Nitroglycerin (Ntg) 0.4 mg Q5M X 3 DOSES PRN SL Prn Chest Pain 05/29/19 02:00 06/28/19 01:59 Ondansetron HCl (Zofran) 4 mg Q6H PRN IVP Nausea & Vomiting 05/29/19 08:00 06/28/19 07:59 Ondansetron HCl (Zofran) 4 mg TIDPRN PRN ORAL Nausea & Vomiting 05/29/19 08:00 06/28/19 07:59 Polyethylene Glycol (Miralax) 17 gm DAILYPRN PRN ORAL Constipation 05/30/19 08:30 06/28/19 01:59 05/30/19 08:50 Sitagliptin Phosphate (Januvia) 100 mg ACBREAKFAST ORAL 05/31/19 06:30 06/29/19 06:29 05/31/19 06:19 Temazepam (Restoril) 15 mg HSPRN PRN ORAL Insomnia 05/29/19 02:00 06/05/19 01:59 05/30/19 20:48 Paul Phillips MD May 31, 2019 07:52
[2019-05-31 08:00] VITALS: BP 127/60
--- NOTE | 2019-05-31 08:30 | General Progress Note ---
Assessment/Plan Problem List: (1) syncopy (2) Spinal stenosis ICD Codes: M48.00 - Spinal stenosis, site unspecified SNOMED: 90174018, 018623176 (3) Diabetes mellitus ICD Codes: E11.9 - Type 2 diabetes mellitus without complications SNOMED: 97522450 (4) History of hypertension ICD Codes: Z86.79 - Personal history of other diseases of the circulatory system SNOMED: 031429782 (5) History of CVA (cerebrovascular accident) ICD Codes: Z86.73 - Personal history of transient ischemic attack (TIA), and cerebral infarction without residual deficits SNOMED: 376740169 (6) Brain aneurysm ICD Codes: I67.1 - Cerebral aneurysm, nonruptured SNOMED: 858449785, 493966220 Status: stable, progressing Assessment/Plan: cardio neuro f/u pt diet bp bs control cbc bmp am Subjective Constitutional: Reports: weakness Allergies: Coded Allergies: PREDNISONE (Verified Allergy, Severe, REDNESS, SWELLING, 03/06/14) PENICILLINS (Verified Allergy, Intermediate, 03/18/17) All Systems: reviewed and negative except above Subjective sl anxious Objective Last 24 Hour Vital Signs Date Time Temp Pulse Resp B/P (MAP) Pulse Ox O2 Delivery O2 Flow Rate FiO2 05/31/19 08:00 98.1 71 20 127/60 (82) 96 05/31/19 07:56 68 20 95 Room Air 21 05/31/19 04:20 98.1 65 20 138/67 (90) 99 05/31/19 04:20 64 05/31/19 00:00 65 05/31/19 00:00 98.2 63 20 141/62 (88) 98 05/30/19 21:00 Room Air 05/30/19 20:00 64 05/30/19 20:00 61 20 94 Room Air 21 05/30/19 20:00 98.0 64 20 148/64 (92) 96 05/30/19 17:05 63 134/54 05/30/19 16:00 70 05/30/19 16:00 98.3 63 18 134/54 (80) 95 05/30/19 12:00 62 05/30/19 12:00 98.1 69 18 137/73 (94) 96 05/30/19 09:00 Room Air Intake and Output 05/30/19 05/31/19 18:59 06:59 Intake Total 440 ml Balance 440 ml Intake Oral 440 ml # Voids 5 2 Laboratory Tests 05/31/19 05:31: White Blood Count 6.1, Red Blood Count 4.20, Hemoglobin 12.6, Hematocrit 37.9, Mean Corpuscular Volume 90, Mean Corpuscular Hemoglobin 29.9, Mean Corpuscular Hemoglobin Concent 33.2, Red Cell Distribution Width 12.0, Platelet Count 214, Mean Platelet Volume 7.6, Neutrophils (%) (Auto) 38.4L, Lymphocytes (%) (Auto) 48.8H, Monocytes (%) (Auto) 8.5, Eosinophils (%) (Auto) 3.3H, Basophils (%) ( Auto) 1.1, Sodium Level 137, Potassium Level 3.9, Chloride Level 102, Carbon Dioxide Level 25, Anion Gap 10, Blood Urea Nitrogen 15, Creatinine 0.8, Estimat Glomerular Filtration Rate , Glucose Level 137H, Calcium Level 9.1 Height (Feet): 5 Height (Inches): 5.00 Weight (Pounds): 167 General Appearance: lethargic EENT: normal ENT inspection Neck: normal alignment Cardiovascular: normal peripheral pulses, normal rate, regular rhythm Respiratory/Chest: chest wall non-tender, lungs clear, normal breath sounds Abdomen: normal bowel sounds, non tender, soft Extremities: normal inspection Edema: no edema noted Arm (L), no edema noted Arm (R), no edema noted Leg (L), no edema noted Leg (R), no edema noted Pedal (L), no edema noted Pedal (R), no edema noted Generalized Neurologic: responsive, motor weakness Skin: normal pigmentation, warm/dry Theo Sutton DO May 31, 2019 08:30
[2019-05-31] MEDS: Aspirin EC 81mg tab ORAL SCH (08:35)
[2019-05-31] MEDS: metFORMIN 500mg tab ORAL SCH ×2 (08:35→08:42)
[2019-05-31] MEDS: Bystolic 2.5mg Tab ORAL SCH (08:35)
[2019-05-31] MEDS: Meclizine 25mg tab ORAL SCH ×2 (08:35→12:30)
[2019-05-31] MEDS: Heparin 5000 units/ml inj SUBQ SCH (08:39)
[2019-05-31] MEDS: Miralax 17gm pkt ORAL PRN (10:22)
--- NOTE | 2019-05-31 11:30 | NUR ---
NURSE NOTES: Left a message to Dr. Sutton that Pt's grand daughter called and insisting that Pt. gets discharged today. Waiting for a call back.
[2019-05-31 12:00] VITALS: BP 126/63
--- NOTE | 2019-05-31 12:04 | NUR ---
NURSE NOTES: Order received to discharge Pt. with home medications and [facility] meds. Pt. to go home with miracle [phone].
--- NOTE | 2019-05-31 13:04 | NUR ---
DISCHARGE PLANNING: NOTE CLINICALS FAXED TO [facility] FOR REVIEW Addendum: 06/01/19 at 0919 by Luz Mcguire CM [facility] IS ACCEPTING THIS PT AND WILL F/U
--- NOTE | 2019-05-31 13:10 | NUR ---
NURSE NOTES: Pt. VS stable. Provided with lunch. Belongings checked with Pt. signed and filed. NO IV. medical assistant secretary removed. Family notified of DC plans. Discharge medication teachings done. No new medications for Pt. Pt aware of medication regimen and agreed to follow as ordered. HH called by Pauline HANDY. Pt. agreed to follow up with PMD. DC package provided. Left floor safely via wheelchair, accompanied by RN. Neighbor given ride, granddaughter confirmed it's OK to let Pt. leave with neighbor.
--- NOTE | 2019-05-31 13:43 | Cardiac Electrophysiology PN ---
Assessment/Plan Assessment/Plan 1. Syncope, etiology is not clear at this time. No and ejection fraction is Nl. Neuro following 2. Hypertension. On Norvasc 5 mg daily, Bystolic 5 mg daily and p.r.n. clonidine. 3. Brain aneurysm status post clipping. 4. Hyperlipidemia. 5. Spinal stenosis. Subjective Subjective No CP or SOB. Remained in SR.DC in progress Objective Last 24 Hour Vital Signs Date Time Temp Pulse Resp B/P (MAP) Pulse Ox O2 Delivery O2 Flow Rate FiO2 05/31/19 09:00 Room Air 05/31/19 08:00 67 05/31/19 08:00 98.1 71 20 127/60 (82) 96 05/31/19 07:56 68 20 95 Room Air 21 05/31/19 07:47 71 64 68 05/31/19 04:20 98.1 65 20 138/67 (90) 99 05/31/19 04:20 64 05/31/19 00:00 65 05/31/19 00:00 98.2 63 20 141/62 (88) 98 05/30/19 21:00 Room Air 05/30/19 20:00 64 05/30/19 20:00 61 20 94 Room Air 21 05/30/19 20:00 98.0 64 20 148/64 (92) 96 05/30/19 17:05 63 134/54 05/30/19 16:00 70 05/30/19 16:00 98.3 63 18 134/54 (80) 95 Intake and Output 05/30/19 05/31/19 19:00 07:00 Intake Total 440 ml Balance 440 ml Intake Oral 440 ml # Voids 5 2 Laboratory Tests Test 05/31/19 05:31 White Blood Count 6.1 K/UL (4.8-10.8) Red Blood Count 4.20 M/UL (4.20-5.40) Hemoglobin 12.6 G/DL (12.0-16.0) Hematocrit 37.9 % (37.0-47.0) Mean Corpuscular Volume 90 FL (80-99) Mean Corpuscular Hemoglobin 29.9 PG (27.0-31.0) Mean Corpuscular Hemoglobin Concent 33.2 G/DL (32.0-36.0) Red Cell Distribution Width 12.0 % (11.6-14.8) Platelet Count 214 K/UL (150-450) Mean Platelet Volume 7.6 FL (6.5-10.1) Neutrophils (%) (Auto) 38.4 % (45.0-75.0) L Lymphocytes (%) (Auto) 48.8 % (20.0-45.0) H Monocytes (%) (Auto) 8.5 % (1.0-10.0) Eosinophils (%) (Auto) 3.3 % (0.0-3.0) H Basophils (%) (Auto) 1.1 % (0.0-2.0) Sodium Level 137 MMOL/L (136-145) Potassium Level 3.9 MMOL/L (3.5-5.1) Chloride Level 102 MMOL/L (98-107) Carbon Dioxide Level 25 MMOL/L (21-32) Anion Gap 10 mmol/L (5-15) Blood Urea Nitrogen 15 mg/dL (7-18) Creatinine 0.8 MG/DL (0.55-1.30) Estimat Glomerular Filtration Rate mL/min (>60) Glucose Level 137 MG/DL (74-106) H Calcium Level 9.1 MG/DL (8.5-10.1) Objective HEAD AND NECK: Showed no JVD. LUNGS: Clear. CARDIOVASCULAR: Shows regular S1 and S2 with no gallop. ABDOMEN: Soft. EXTREMITIES: No pitting edema. Gianluca Gray MD May 31, 2019 13:43
--- NOTE | 2019-05-31 18:55 | Neurology Progress Note ---
Interim History Interim History ROS Limited/Unobtainable: No Interim History dizziness resolved ambulating Review of Systems All Systems: reviewed and negative except above Objective Physical Exam Last Vital Signs Date Time Temp Pulse Resp B/P (MAP) Pulse Ox O2 Delivery O2 Flow Rate FiO2 05/31/19 12:00 98.0 68 18 126/63 (84) 96 05/31/19 09:00 Room Air 05/31/19 07:56 21 Laboratory Tests Test 05/31/19 05:31 White Blood Count 6.1 K/UL (4.8-10.8) Red Blood Count 4.20 M/UL (4.20-5.40) Hemoglobin 12.6 G/DL (12.0-16.0) Hematocrit 37.9 % (37.0-47.0) Mean Corpuscular Volume 90 FL (80-99) Mean Corpuscular Hemoglobin 29.9 PG (27.0-31.0) Mean Corpuscular Hemoglobin Concent 33.2 G/DL (32.0-36.0) Red Cell Distribution Width 12.0 % (11.6-14.8) Platelet Count 214 K/UL (150-450) Mean Platelet Volume 7.6 FL (6.5-10.1) Neutrophils (%) (Auto) 38.4 % (45.0-75.0) L Lymphocytes (%) (Auto) 48.8 % (20.0-45.0) H Monocytes (%) (Auto) 8.5 % (1.0-10.0) Eosinophils (%) (Auto) 3.3 % (0.0-3.0) H Basophils (%) (Auto) 1.1 % (0.0-2.0) Sodium Level 137 MMOL/L (136-145) Potassium Level 3.9 MMOL/L (3.5-5.1) Chloride Level 102 MMOL/L (98-107) Carbon Dioxide Level 25 MMOL/L (21-32) Anion Gap 10 mmol/L (5-15) Blood Urea Nitrogen 15 mg/dL (7-18) Creatinine 0.8 MG/DL (0.55-1.30) Estimat Glomerular Filtration Rate mL/min (>60) Glucose Level 137 MG/DL (74-106) H Calcium Level 9.1 MG/DL (8.5-10.1) Impression/Recommendations Problems: (1) Acute encephalopathy (2) History of hypertension (3) Spinal stenosis (4) Head injury (5) Multiple injuries due to trauma (6) Diabetes mellitus (7) Osteoarthritis (8) Brain aneurysm (9) History of CVA (cerebrovascular accident) (10) 23-polyvalent pneumococcal polysaccharide vaccine indication of diabetes in patient 6 to 64 years of age Status: stable, progressing Diagnostic Impression Reviewed mri brain - no posterior circulation stroke noted Status post aneurysm coil at the right ICA/MCA junction. Encourage ambulation PT OT No further neurological work up required at this time ok to Justice Prater MD May 31, 2019 18:55
--- NOTE | 2019-06-01 10:42 | Discharge Summary ---
Discharge Summary Discharge Summary _ DATE OF ADMISSION: 05/28/2019 DATE OF DISCHARGE: 05/31/2019 DISCHARGED BY: Dr. Theo Sutton CONSULTANTS: Justice Porter BRIEF HOSPITAL COURSE: Patient is an 83-year-old female, who lives at home by herself, had a syncopal episode that was unwitnessed. Patient felt very dizzy and fainted. She did not become incontinent. She hit her back and head. She called 911. She has medical history significant for hypertension, diabetes, brain aneurysm with right-sided weakness status post aneurysmal clips. On evaluation at the ED, blood pressure was 166/68, pulse rate 69. Blood work did not show any leukocytosis. Hemoglobin and hematocrit were stable. Electrolytes were normal. Troponin was negative. proBNP 162. She complained of significant low back pain. CT of the lumbar spine read by radiologist showed multiple degenerative changes with spinal stenosis. CT imaging of the head read by radiologist showed no evidence of acute intracranial hemorrhage or surgical changes. She was given IV hydration. She was given pain management. She was then admitted for evaluation of syncope, fall, and multiple injuries due to trauma. Patient was admitted to telemetry. She was hooked on the monitor. Echocardiogram done ejection fraction of 60 to 65%. EKG showed sinus rhythm with right superior axis. Echocardiogram did not show any evidence of aortic stenosis and ejection fraction was within normal range. She was continued on Norvasc and Bystolic for blood pressure control. Orthostatic vitals were negative. Neuro evaluation was done. Focal exam showed prior history of right cerebral stent and mild facial weakness at rest but not on movement. Dizziness/vertigo was exacerbated by movement. Symptoms were present for approximately 10 days, no acute intervention for thrombo-embolic event. She was given symptom management with meclizine and Zofran. Carotid duplex scan showed minimal stenosis to the common carotid artery, mild stenosis to internal carotid artery bilaterally. 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 MRI of the brain did not show any posterior circulation stroke. There was no acute CVA, intracranial bleed, mass-effect or edema identified. Status post aneurysm coil at the right ICA/MCA junction. Per neurologist no further neuro work-up was required. Patient has diabetes mellitus. Hemoglobin A1c 6.2. She was given NovoLog sliding scale. Januvia was increased to 100 mg daily and metformin to 1000 mg twice daily. She was given physical therapy. She was encouraged ambulation. She was instructed on fall precautions. She was eventually discharged home with home health. FINAL DIAGNOSES: Syncope, etiology unknown Status post recent fall with loss of consciousness Acute encephalopathy, resolved Spinal stenosis Multiple injuries secondary to trauma Diabetes mellitus Osteoarthritis Old brain aneurysm status post clipping Hypertension Mild carotid stenosis DISPOSITION: [place] home with home health. DISCHARGE MEDICATIONS: Refer to Discharge Medication List. DISCHARGE INSTRUCTIONS: Follow-up in a week. I have been assigned to complete a discharge summary on this account, I was not involved with the patient's management.--IRIS Mcmillan Jacqueline Robles NP Jun 01, 2019 10:42
== END 2019-05-31 13:15 | disposition home health service (06) | DRG 914 ==
LOC: EMR 20:40 → 2E 21:19 → EDBEDREQ 21:38 → 2E 05-30 18:22
DX: S09.90XA Unspecified injury of head, initial encounter (principal); G93.40 Encephalopathy, unspecified; E87.1 Hypo-osmolality and hyponatremia; T07.XXXA Unspecified multiple injuries, initial encounter; W19.XXXA Unspecified fall, initial encounter; Y92.009 Unspecified place in unspecified non-institutional (private) residence as the place of occurrence of the external cause; R55 Syncope and collapse; M48.00 Spinal stenosis, site unspecified; I10 Essential (primary) hypertension; Z88.0 Allergy status to penicillin; Z88.8 Allergy status to other drugs, medicaments and biological substances; Z86.73 Personal history of transient ischemic attack (TIA), and cerebral infarction without residual deficits; I65.29 Occlusion and stenosis of unspecified carotid artery; R42 Dizziness and giddiness; R51 Headache; E78.00 Pure hypercholesterolemia, unspecified; M19.90 Unspecified osteoarthritis, unspecified site; I67.1 Cerebral aneurysm, nonruptured; Z88.6 Allergy status to analgesic agent; G89.29 Other chronic pain; M54.5 Low back pain; E11.65 Type 2 diabetes mellitus with hyperglycemia
CPT/HCPCS: 36415; 70450; 70551; 71045; 72131; 80048; 80053; 80061; 82962; 83036; 83880; 84443; 84484; 85025; 85610; 85730; 93005; 93306; 93880; 93970; 94664; 96374; 96375; 96376; 99285; J1815; J2405

== ENCOUNTER 2020-11-06 15:46 | Inpatient (IN) | payer MEDICARE, OTHER ==
[~2020-11-06] VITALS: Ht 157.5 cm; Wt 65.3 kg
[~2020-11-06 15:46] MED LIST changes: +AZOR 5-20 MG T1 EACH ORAL; +BYSTOLIC2.5 MG ORAL; +HYDRALAZINE HC100 MG ORAL; +HYDRALAZINE HCL25 M1 ORAL; +MULTIVITAMINS1 EAC2 ORAL
--- NOTE | 2020-11-06 15:57 | NUR ---
ED Nurse Note: No bed at this time. ER charge nurse and ERMD notified.
[2020-11-06 15:58] VITALS: BP 184/94
--- NOTE | 2020-11-06 15:58 | NUR ---
ED Nurse Note: Pt AMOLMinisterio [id number] from home c/o nausea and vomiting x3 days. Pt stated "feeling ill and thirsty" for the past couple of days. Pt has been able to keep just sips of water. AAoX4, verbally responsive. No SOB, on room air. ERMD at bedside.
[2020-11-06] MEDS ORDERED: DiphenhydrAMINE 50mg/ml Inj IVP ONE (16:00)
[2020-11-06] MEDS ORDERED: Metoclopramide 10mg/2ml Inj IVP ONE (16:00)
--- NOTE | 2020-11-06 16:01 | Emergency Room Report ---
History of Present Illness General Chief Complaint: Nausea, Vomiting, and Diarrhea Source: Patient, Family Member, EMS Present Illness HPI Patient presents with 2 to 3 days of nausea and vomiting. She denies vomiting blood. She denies diarrhea although there is some possible this comprehension of the word. She feels thirsty. She has been able to keep down just sips of water. She feels weak. She denies any cough or sore throat. She does complain about some chest discomfort. This is vague. Patient denies exposure to Covid positive contacts. No fevers, chills, palpitations, diarrhea, dysuria, abdominal pain, shortness of breath, joint pain, rashes, depression, anxiety, visual changes, headache. After the diagnosis of hyponatremia and I was discussing this with the daughter she now states that the patient was admitted a few months ago for possibly a similar problem. She says all her electrolytes were low and she was admitted for 3 to 4 days at [facility]. The daughter says that she was confused last night and considered bringing her to the emergency department at that time. She has also had weakness and been unable to ambulate. Finally review of prior admission in 2017 significant for these discharge diagnoses: 1. Acute hyponatremia, possibly due to dehydration. 2. Rule out syndrome of inappropriate antidiuretic hormone secretion. 3. Acute hypokalemia. 4. Nausea and vomiting, likely due to the acute hyponatremia. 5. Headache. 6. Hypertension. 7. Diabetes. 8. History of cerebrovascular accident. 9. Osteoarthritis. Allergies: Coded Allergies: PREDNISONE (Verified Allergy, Severe, REDNESS, SWELLING, 03/06/14) PENICILLINS (Verified Allergy, Intermediate, 03/18/17) COVID-19 Screening Contact w/high risk pt: No Experienced COVID-19 symptoms?: Yes COVID-19 Testing performed PROGRAM SERVICES PLANNER: No Patient History Past Medical History: see triage record Past Surgical History: other - Aneurysm, knee replacement and foot surgery Social History Narrative Patient lives by herself but her daughter is involved in her care Reviewed Nursing Documentation: PMH: Agreed; PSxH: Agreed Nursing Documentation-PM Past Medical History: No History, Except For Hx Cardiac Problems: Yes Hx Hypertension: Yes Hx Diabetes: Yes Hx Cancer: No Hx Gastrointestinal Problems: No Hx Neurological Problems: Yes Hx Cerebrovascular Accident: Yes - 2016 Hx Syncope: Yes Hx Weakness: Yes - right side Hx Neurologic Surgery: Yes - aneurysm clip Review of Systems All Other Systems: negative except mentioned in HPI Physical Exam Vital Signs Date Time Temp Pulse Resp B/P (MAP) Pulse Ox O2 Delivery O2 Flow Rate FiO2 11/06/20 15:54 99.0 84 18 184/94 (124) 96 Room Air Sp02 EP Interpretation: reviewed, normal General Appearance: no apparent distress, GCS 15, non-toxic, other - Episodes of vomiting and ill-appearing Head: normocephalic Eyes: bilateral eye other - Scleral hemorrhages bilaterally ENT: EOM grossly intact, moist mucus membranes Neck: supple Respiratory: lungs clear, normal breath sounds Cardiovascular #1: regular rate, rhythm, no edema Cardiovascular #2: 2+ radial (R) Gastrointestinal: normal inspection, normal bowel sounds, non tender, no mass, non-distended, overweight Genitourinary: no CVA tenderness Musculoskeletal: back normal, normal range of motion, no calf tenderness, gait/station normal Neurologic: alert, motor strength/tone normal, director of informatics III-XII nml as tested, DTRs symmetric, oriented x3, sensory intact, cerebellar normal, speech normal Psychiatric: depressed affect, anxious Skin: no rash, warm/dry Medical Decision Making Diagnostic Impression: Primary Impression: Acute hyponatremia 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 Differential includes acute myocardial infarction, gastroenteritis, gastritis, pancreatitis, peptic ulcer disease, food poisoning amongst others. Evaluation with EKG, chest x-ray, abdomen film and labs. Patient treated with Reglan, Pepcid, Benadryl and some IV hydration. Called by lab. Hyponatremia. NS continue. Admit telemetry. Consider 3% NS. 1805 Repeating labs. Sodium improved. Urine sodium and osmolality are high suggesting SIADH. Medications reviewed and not seeming to contribute to hyponatremia. History of prior aneurysm may be contributory. Patient improved with normal saline. Ambulatory and not vomiting anymore. However due to the severe nature of hyponatremia patient admitted to the hospital for evaluation of etiology as well as treatment. Laboratory Tests Test 11/06/20 17:21 11/06/20 18:40 11/06/20 19:17 White Blood Count 8.1 K/UL (4.8-10.8) Red Blood Count 4.41 M/UL (4.20-5.40) Hemoglobin 13.6 G/DL (12.0-16.0) Hematocrit 36.5 % (37.0-47.0) L Mean Corpuscular Volume 83 FL (80-99) Mean Corpuscular Hemoglobin 30.7 PG (27.0-31.0) Mean Corpuscular Hemoglobin Concent 37.1 G/DL (32.0-36.0) H Red Cell Distribution Width 11.5 % (11.6-14.8) L Platelet Count 188 K/UL (150-450) Mean Platelet Volume 9.7 FL (6.5-10.1) Neutrophils (%) (Auto) 81.1 % (45.0-75.0) H Lymphocytes (%) (Auto) 10.5 % (20.0-45.0) L Monocytes (%) (Auto) 7.7 % (1.0-10.0) Eosinophils (%) (Auto) 0.1 % (0.0-3.0) Basophils (%) (Auto) 0.6 % (0.0-2.0) Prothrombin Time 11.2 SEC (9.30-11.50) Prothrombin Time INR 1.0 (0.9-1.1) Activated Partial Thromboplast Time 26 SEC (23-33) Sodium Level 115 MMOL/L (136-145) *L 118 MMOL/L (136-145) *L Potassium Level 3.0 MMOL/L (3.5-5.1) L 3.0 MMOL/L (3.5-5.1) L Chloride Level 82 MMOL/L (98-107) L 85 MMOL/L (98-107) L Carbon Dioxide Level 22 MMOL/L (21-32) 22 MMOL/L (21-32) Anion Gap 11 mmol/L (5-15) 10 mmol/L (5-15) Blood Urea Nitrogen 14 mg/dL (7-18) 11 mg/dL (7-18) Creatinine 0.8 MG/DL (0.55-1.30) 0.7 MG/DL (0.55-1.30) Estimated Glomerular Filtration Rate > 60 mL/min (>60) > 60 mL/min (>60) Glucose Level 168 MG/DL (74-106) H 152 MG/DL (74-106) H Osmolality 253 mOsm/kg (297-317) L Uric Acid 2.9 MG/DL (2.6-7.2) Calcium Level 8.2 MG/DL (8.5-10.1) L 7.9 MG/DL (8.5-10.1) L Total Bilirubin 1.1 MG/DL (0.2-1.0) H 1.0 MG/DL (0.2-1.0) Direct Bilirubin 0.2 MG/DL (0.0-0.3) Aspartate Amino Transferase (AST) 19 U/L (15-37) 19 U/L (15-37) Alanine Aminotransferase (ALT) 33 U/L (12-78) 32 U/L (12-78) Alkaline Phosphatase 97 U/L (46-116) 92 U/L (46-116) Troponin I 0.007 ng/mL (0.000-0.056) Total Protein 6.8 G/DL (6.4-8.2) 6.3 G/DL (6.4-8.2) L Albumin 3.8 G/DL (3.4-5.0) 3.5 G/DL (3.4-5.0) Globulin 3.0 g/dL 2.8 g/dL Albumin/Globulin Ratio 1.3 (1.0-2.7) 1.2 (1.0-2.7) Lipase 105 U/L (73-393) Thyroid Stimulating Hormone (TSH) 2.697 uiU/mL (0.358-3.740) Free Thyroxine 1.29 NG/DL (0.76-1.46) Free Triiodothyronine 2.5 pg/mL (2.3-4.2) Cortisol Pending Urine Color Pale yellow Urine Appearance Clear Urine pH 6 (4.5-8.0) Urine Specific [place] 1.015 (1.005-1.035) Urine Protein 1+ (NEGATIVE) H Urine Glucose (UA) 2+ (NEGATIVE) H Urine Ketones 4+ (NEGATIVE) H Urine Blood 2+ (NEGATIVE) H Urine Nitrite Negative (NEGATIVE) Urine Bilirubin Negative (NEGATIVE) Urine Urobilinogen Normal MG/DL (0.0-1.0) Urine Leukocyte Esterase Negative (NEGATIVE) Urine RBC 10-15 /HPF (0 - 2) H Urine WBC 0-2 /HPF (0 - 2) Urine Squamous Epithelial Cells Few /LPF (NONE/OCC) Urine Bacteria Few /HPF (NONE) Urine Osmolality 459 mOsm/kg (429-449) H Urine Random Sodium 83 mmol/L (20-110) EKG Diagnostic Results Rate: normal Rhythm: NSR ST Segments: no acute changes Rhythm Strip Diag. Results EP Interpretation: yes Rhythm: NSR, no PVC's, no ectopy Chest X-Ray Diagnostic Results Chest X-Ray Diagnostic Results : Chest X-Ray Ordered: Yes # of Views/Limited/Complete: 1 View Indication: Other EP Interpretation: Yes Interpretation: no consolidation, no effusion, no pneumothorax Impression: No acute disease Electronically Signed by: Electronically signed by Trace Feldman MD Other X-Ray Diagnostic Results Other X-Ray Diagnostic Results : X-Ray ordered: Abdomen # of Views/Limited Vs Complete: 2 View Indication: Other EP Interpretation: Yes Interpretation: nonspecific bowel gas, no sbo, other - No masses Impression: No acute disease Electronically Signed by: Electronically signed by Trace Feldman MD Last Vital Signs Date Time Temp Pulse Resp B/P (MAP) Pulse Ox O2 Delivery O2 Flow Rate FiO2 11/07/20 00:00 97.0 69 20 152/77 (102) 97 11/06/20 22:50 Room Air Status: improved Disposition: ADMITTED INPATIENT Condition: Serious Trace Feldman MD Nov 06, 2020 16:01
--- NOTE | 2020-11-06 17:18 | Diagnostic Imaging Report ---
Indication: Reason For Exam: Chest PAIN Technique: Single AP view of the chest. Comparison: Chest radiograph dated 05/29/2019 Findings: The cardiomediastinal silhouette is unchanged in appearance, with persistent mild cardiomegaly. There are low lung volumes, leading to bronchovascular crowding. Mild pulmonary vascular congestion. There are streaky bibasilar airspace opacities. No pneumothorax or pleural effusion. No acute osseous abnormality. IMPRESSION: Pulmonary vascular congestion with bibasilar airspace opacities which may represent combination of atelectasis and edema but pneumonia should be excluded clinically.
--- NOTE | 2020-11-06 17:21 | NUR ---
ED Nurse Note: IV line established. Blood sent to lab.
[2020-11-06 17:40] LABS: BASOPHILS % (AUTO) 0.6 % (0.0-2.0); EOSINOPHILS % (AUTO) 0.1 % (0.0-3.0); HEMATOCRIT 36.5 % (37.0-47.0); HEMOGLOBIN 13.6 G/DL (12.0-16.0); LYMPHOCYTES % (AUTO) 10.5 % (20.0-45.0); MEAN CORPUSCULAR VOLUME 83 FL (80-99); MONOCYTES % (AUTO) 7.7 % (1.0-10.0); NEUTROPHILS % (AUTO) 81.1 % (45.0-75.0); PLATELET COUNT 188 K/UL (150-450); RED BLOOD COUNT 4.41 M/UL (4.20-5.40); RED CELL DISTRIBUTION WIDTH 11.5 % (11.6-14.8); WHITE BLOOD COUNT 8.1 K/UL (4.8-10.8)
[2020-11-06 17:59] LABS: ALANINE AMINOTRANSFERASE 33 U/L (12-78); ALBUMIN 3.8 G/DL (3.4-5.0); ALBUMIN/GLOBULIN RATIO 1.3 (1.0-2.7); ALKALINE PHOSPHATASE 97 U/L (46-116); ANION GAP 11 mmol/L (5-15); ASPARTATE AMINO TRANSFERASE 19 U/L (15-37); BILIRUBIN,TOTAL 1.1 MG/DL (0.2-1.0); BLOOD UREA NITROGEN 14 mg/dL (7-18); CALCIUM 8.2 MG/DL (8.5-10.1); CARBON DIOXIDE 22 MMOL/L (21-32); CHLORIDE 82 MMOL/L (98-107); CREATININE 0.8 MG/DL (0.55-1.30)
[2020-11-06 18:04] LABS: SODIUM 115 MMOL/L (136-145)
[2020-11-06 18:05] LABS: BILIRUBIN,DIRECT 0.2 MG/DL (0.0-0.3)
[2020-11-06 19:08] VITALS: BP 136/84
--- NOTE | 2020-11-06 19:08 | NUR ---
ED Nurse Note: pt laying in bed with eyes closed, opens eyes when name is called. Pt is AAOx4, breathing even and unlabored. No complaints from pt at the moment.
[2020-11-06 19:09] LABS: APPEARANCE,URINE CLEAR; BILIRUBIN, URINE NEGATIVE (NEGATIVE); COLOR,URINE PALE YELLOW; GLUCOSE, URINE (UA) 2+ (NEGATIVE); KETONES,URINE 4+ (NEGATIVE); LEUKOCYTE ESTERASE ,URINE NEGATIVE (NEGATIVE); NITRITE,URINE NEGATIVE (NEGATIVE); PH,URINE 6 (4.5-8.0); PROTEIN,URINE 1+ (NEGATIVE); UROBILINOGEN,URINE NORMAL MG/DL (0.0-1.0)
--- NOTE | 2020-11-06 19:18 | NUR ---
ED Nurse Note: CMP sent to lab
[2020-11-06 19:55] LABS: ALANINE AMINOTRANSFERASE 32 U/L (12-78); ALBUMIN 3.5 G/DL (3.4-5.0); ALBUMIN/GLOBULIN RATIO 1.2 (1.0-2.7); ALKALINE PHOSPHATASE 92 U/L (46-116); ANION GAP 10 mmol/L (5-15); ASPARTATE AMINO TRANSFERASE 19 U/L (15-37); BLOOD UREA NITROGEN 11 mg/dL (7-18); CALCIUM 7.9 MG/DL (8.5-10.1); CARBON DIOXIDE 22 MMOL/L (21-32); CHLORIDE 85 MMOL/L (98-107); CREATININE 0.7 MG/DL (0.55-1.30)
[2020-11-06 20:03] LABS: SODIUM 118 MMOL/L (136-145)
--- NOTE | 2020-11-06 20:56 | NUR ---
ED Nurse Note: pt assisted to restroom via w/c, bed linen changed.
--- NOTE | 2020-11-06 21:20 | NUR ---
ED Nurse Note: BP 174/68 EDMD aware pt requesting antihypertensice medication.
[2020-11-06 21:21] VITALS: BP 174/68
[2020-11-06] MEDS ORDERED: HydrALAZINE 25mg tab ONE (21:23)
[2020-11-06] MEDS ORDERED: Miralax 17gm pkt ORAL PRN (21:30)
[2020-11-06] MEDS ORDERED: HydrALAZINE 25mg tab ORAL ONE (21:30)
--- NOTE | 2020-11-06 21:55 | NUR ---
ED Nurse Note: Report given to FRANDY Tobar in tele. Bed being cleaned. Said will call when room is ready.
[2020-11-06 22:03] VITALS: BP 141/64
--- NOTE | 2020-11-06 22:50 | NUR ---
ED Nurse Note: pt transfered to tele floor via gurney in stable condition, accompanied by EMT and clinical staff educator. Per EDMD ok to transfer. Pt is AAOx4, breathing even and unlabored. Belongings and admission packet sent up with pt and given to FRANDY Tobar.
--- NOTE | 2020-11-06 22:55 | History & Physical ---
History and Physical History & Physicial -[id number] Redd Goodwin MD Nov 06, 2020 22:55
[2020-11-06] MEDS ORDERED: NaCl 3% 500ml 500 ML IV ONE (23:00)
--- NOTE | 2020-11-06 23:00 | NUR ---
NURSE NOTES: Patient received from Gabi WISE. Patient in stable condition. Alert and oriented x4. Was able to ambulate from [place] to bed. Attached cardiac care nurse and placed hospital gown. No skin issues noted. No c/o pain and no s/s of distress. Saturating well on room air. IV site patent and intact on Left AC 20G. Orders put in by primary doctor. All belongings accounted for. Bed in lowest position and locked. Call light and bedside table within reach. Will continue plan of care.
[2020-11-06] MEDS: Zolpidem 5mg tab ORAL PRN (23:59)
[2020-11-07] VITALS: BP 152/77
[2020-11-07 04:00] VITALS: BP 134/60
[2020-11-07 04:47] LABS: BASOPHILS % (AUTO) 0.7 % (0.0-2.0); EOSINOPHILS % (AUTO) 0.3 % (0.0-3.0); HEMATOCRIT 31.7 % (37.0-47.0); HEMOGLOBIN 12.3 G/DL (12.0-16.0); LYMPHOCYTES % (AUTO) 29.1 % (20.0-45.0); MEAN CORPUSCULAR VOLUME 80 FL (80-99); MONOCYTES % (AUTO) 14.8 % (1.0-10.0); PLATELET COUNT 171 K/UL (150-450); RED BLOOD COUNT 3.97 M/UL (4.20-5.40); RED CELL DISTRIBUTION WIDTH 13.1 % (11.6-14.8); WHITE BLOOD COUNT 6.8 K/UL (4.8-10.8)
[2020-11-07 05:24] LABS: ALANINE AMINOTRANSFERASE 29 U/L (12-78); ALBUMIN 3.2 G/DL (3.4-5.0); ALBUMIN/GLOBULIN RATIO 1.2 (1.0-2.7); ALKALINE PHOSPHATASE 82 U/L (46-116); ANION GAP 8 mmol/L (5-15); ASPARTATE AMINO TRANSFERASE 22 U/L (15-37); BILIRUBIN,TOTAL 0.7 MG/DL (0.2-1.0); BLOOD UREA NITROGEN 9 mg/dL (7-18); CALCIUM 7.8 MG/DL (8.5-10.1); CARBON DIOXIDE 23 MMOL/L (21-32); CHLORIDE 95 MMOL/L (98-107); CHOLESTEROL 220 MG/DL (< 200); CREATININE 0.6 MG/DL (0.55-1.30); HDL CHOLESTEROL 56 MG/DL (40-60); POTASSIUM 2.9 MMOL/L (3.5-5.1); SODIUM 126 MMOL/L (136-145); TRIGLYCERIDES 100 MG/DL (30-150)
--- NOTE | 2020-11-07 07:43 | NUR ---
NURSE HAND-OFF REPORT: Important Events on Shift:[Admission ] Patient Status: [Stable] Diet: [Regular] Pending Orders: [] Pending Results/Labs:[] Pending MD notification:[] Latest Vital Signs: Temperature 97.9 , Pulse 69 , B/P 134 /60 , Respiratory Rate 20 , O2 SAT 94 , Room Air, O2 Flow Rate . Vital Sign Comment: [] EKG Rhythm: Sinus Rhythm Rhythm change?: N MD Notified?: - MD Response: Latest Cortez Fall Score: 45 Fall Risk: High Risk Safety Measures: Call light Within Reach, Bed Alarm Zone 1, Side Rails Side Rails x2, Bed position Low and Locked. Fall Precautions: Yellow Socks Yellow Gown Door Sign Patient Fall Education Report given to [Josette WISE].
[2020-11-07 08:00] VITALS: BP_SYST 131; BP_SYST 136; BP_DIAS 55; BP_DIAS 63
--- NOTE | 2020-11-07 08:04 | NUR ---
NURSE NOTES: Received patient report from FRANDY Tobar. Patient is AO x4 awake and able to make needs known. Patient is on room air and shows no signs of respiratory distress. She is able to ambulate with assistance, patient weak and unsteady. IV is intact and patent. Running NS at 300cc/hr and 3% NA chloride. Patient shows no signs of distress or pain at the time. Bed is in the lowest position, call light is within reach, side rails up x2, bed alarm on. Will continue to monitor.
--- NOTE | 2020-11-07 09:26 | NUR ---
CASE MANAGEMENT:REVIEW 85 YR OLD FEMALE BIBA FROM HOME CC: VOMITING AND DIARRHEA SI: HYPONATREMIA 99.0 84 18 184/94 96% ON RA NA-115 K-3.0 IS: IV REGLAN IV PEPCID 500CC NS BOLUS IV BENADRYL 1L NS BOLUS ABDOMINAL XRAY CXR : TO TELEMETRY DCP: FROM HOME
[2020-11-07] MEDS: Bystolic 2.5mg Tab ORAL SCH (09:43)
[2020-11-07] MEDS: HydrALAZINE 25mg tab ORAL SCH ×2 (09:43→21:33)
[2020-11-07] MEDS: Aspirin EC 81mg tab ORAL SCH (09:43)
--- NOTE | 2020-11-07 10:34 | Diagnostic Imaging Report ---
Indication: Abdominal pain Technique: Portable supine view of the abdomen Comparison: None Findings: Nonspecific, not overtly obstructive bowel gas pattern. No evidence to suggest free intraperitoneal pelvic phleboliths are noted. Air. There are degenerative changes in the spine. Impression: Nonspecific, nonobstructive bowel gas pattern.
--- NOTE | 2020-11-07 11:31 | Consultation ---
History of Present Illness General Date patient seen: Nov 07, 2020 Chief Complaint: Nausea, Vomiting, and Diarrhea Present Illness HPI 85 year old Uk[place]ian female with hx of DM, HTN, presented to ER with CC of generalized weakness. Initial evaluation revealed that her Na was critically low. She had a similar episode a few month ago and had to stay at [facility] for a few days. she doesn't speak any Cuban and seems to be poor historian anyway. Allergies: Coded Allergies: PREDNISONE (Verified Allergy, Severe, REDNESS, SWELLING, 03/06/14) PENICILLINS (Verified Allergy, Intermediate, 03/18/17) Medication History Scheduled Amlodipine Bes/Olmesartan Med 5-20 Mg Tablet (Maikel 5-20 Mg Tablet), 1 TAB ORAL DAILY, (Reported) Amlodipine Besylate (Norvasc), 5 MG ORAL DAILY, (Reported) Aspirin* (Aspir 81*), 81 MG ORAL DAILY, (Reported) Hydralazine Hcl* (Hydralazine Hcl*), 25 MG ORAL TWICE A DAY, (Reported) Multivitamins* (Multivitamins*), 1 TAB ORAL DAILY, (Reported) Nebivolol Hcl* (Bystolic*), 5 MG ORAL DAILY, (Reported) Sitagliptin Phos/Metformin Hcl (Janumet 50-500 Mg Tablet), 1 TAB ORAL TWICE A DAY, (Reported) Scheduled PRN Zolpidem Tartrate* (Ambien*), 5 MG ORAL BEDTIME PRN for Insomnia, (Reported) Patient History Healthcare decision maker Resuscitation status Advanced Directive on File Past Medical/Surgical History Past Medical/Surgical History: (1) History of hypertension (2) Diabetes mellitus (3) History of CVA (cerebrovascular accident) Review of Systems All Other Systems: negative except mentioned in HPI Physical Exam General Appearance: WD/WN, no apparent distress Lines, tubes and drains: peripheral HEENT: normocephalic, atraumatic Neck: non-tender, normal alignment Respiratory/Chest: chest wall non-tender, lungs clear, normal breath sounds Breasts: no masses Cardiovascular/Chest: normal peripheral pulses Abdomen: normal bowel sounds Genitourinary/Rectal: normal genital exam Extremities: normal range of motion Skin Exam: normal pigmentation Last 24 Hour Vital Signs Date Time Temp Pulse Resp B/P (MAP) Pulse Ox O2 Delivery O2 Flow Rate FiO2 11/07/20 09:43 136/63 11/07/20 09:43 76 136/63 11/07/20 04:00 97.9 69 20 134/60 (84) 94 11/07/20 04:00 68 11/07/20 02:12 Room Air 11/07/20 00:00 97.0 69 20 152/77 (102) 97 11/07/20 00:00 67 11/06/20 22:50 98.5 81 18 147/65 100 Room Air 11/06/20 22:03 98.5 83 18 141/64 100 Room Air 11/06/20 21:24 174/68 11/06/20 21:21 98.4 76 18 174/68 100 Room Air 11/06/20 19:08 98.5 69 18 136/84 100 Room Air 11/06/20 15:58 99.0 84 18 184/94 96 Room Air 11/06/20 15:54 99.0 84 18 184/94 (124) 96 Room Air Intake and Output 11/06/20 11/07/20 19:00 07:00 Intake Total 500 ml 600 ml Balance 500 ml 600 ml Intake Oral 300 ml IV Total 500 ml 300 ml # Voids 2 Laboratory Tests Test 11/06/20 17:21 11/06/20 18:40 11/06/20 19:17 11/07/20 04:13 White Blood Count 8.1 K/UL (4.8-10.8) 6.8 K/UL (4.8-10.8) Red Blood Count 4.41 M/UL (4.20-5.40) 3.97 M/UL (4.20-5.40) L Hemoglobin 13.6 G/DL (12.0-16.0) 12.3 G/DL (12.0-16.0) Hematocrit 36.5 % (37.0-47.0) L 31.7 % (37.0-47.0) L Mean Corpuscular Volume 83 FL (80-99) 80 FL (80-99) Mean Corpuscular Hemoglobin 30.7 PG (27.0-31.0) 31.0 PG (27.0-31.0) Mean Corpuscular Hemoglobin Concent 37.1 G/DL (32.0-36.0) H 38.8 G/DL (32.0-36.0) H Red Cell Distribution Width 11.5 % (11.6-14.8) L 13.1 % (11.6-14.8) Platelet Count 188 K/UL (150-450) 171 K/UL (150-450) Mean Platelet Volume 9.7 FL (6.5-10.1) 9.8 FL (6.5-10.1) Neutrophils (%) (Auto) 81.1 % (45.0-75.0) H 55.0 % (45.0-75.0) Lymphocytes (%) (Auto) 10.5 % (20.0-45.0) L 29.1 % (20.0-45.0) Monocytes (%) (Auto) 7.7 % (1.0-10.0) 14.8 % (1.0-10.0) H Eosinophils (%) (Auto) 0.1 % (0.0-3.0) 0.3 % (0.0-3.0) Basophils (%) (Auto) 0.6 % (0.0-2.0) 0.7 % (0.0-2.0) Prothrombin Time 11.2 SEC (9.30-11.50) Prothromb Time International Ratio 1.0 (0.9-1.1) Activated Partial Thromboplast Time 26 SEC (23-33) Sodium Level 115 MMOL/L (136-145) *L 118 MMOL/L (136-145) *L 126 MMOL/L (136-145) L Potassium Level 3.0 MMOL/L (3.5-5.1) L 3.0 MMOL/L (3.5-5.1) L 2.9 MMOL/L (3.5-5.1) L Chloride Level 82 MMOL/L (98-107) L 85 MMOL/L (98-107) L 95 MMOL/L (98-107) L Carbon Dioxide Level 22 MMOL/L (21-32) 22 MMOL/L (21-32) 23 MMOL/L (21-32) Anion Gap 11 mmol/L (5-15) 10 mmol/L (5-15) 8 mmol/L (5-15) Blood Urea Nitrogen 14 mg/dL (7-18) 11 mg/dL (7-18) 9 mg/dL (7-18) Creatinine 0.8 MG/DL (0.55-1.30) 0.7 MG/DL (0.55-1.30) 0.6 MG/DL (0.55-1.30) Estimat Glomerular Filtration Rate > 60 mL/min (>60) > 60 mL/min (>60) > 60 mL/min (>60) Glucose Level 168 MG/DL (74-106) H 152 MG/DL (74-106) H 118 MG/DL (74-106) H Osmolality 253 mOsm/kg (297-317) L Uric Acid 2.9 MG/DL (2.6-7.2) Calcium Level 8.2 MG/DL (8.5-10.1) L 7.9 MG/DL (8.5-10.1) L 7.8 MG/DL (8.5-10.1) L Total Bilirubin 1.1 MG/DL (0.2-1.0) H 1.0 MG/DL (0.2-1.0) 0.7 MG/DL (0.2-1.0) Direct Bilirubin 0.2 MG/DL (0.0-0.3) Aspartate Amino Transf (AST/SGOT) 19 U/L (15-37) 19 U/L (15-37) 22 U/L (15-37) Alanine Aminotransferase (ALT/SGPT) 33 U/L (12-78) 32 U/L (12-78) 29 U/L (12-78) Alkaline Phosphatase 97 U/L (46-116) 92 U/L (46-116) 82 U/L (46-116) Troponin I 0.007 ng/mL (0.000-0.056) Total Protein 6.8 G/DL (6.4-8.2) 6.3 G/DL (6.4-8.2) L 5.8 G/DL (6.4-8.2) L Albumin 3.8 G/DL (3.4-5.0) 3.5 G/DL (3.4-5.0) 3.2 G/DL (3.4-5.0) L Globulin 3.0 g/dL 2.8 g/dL 2.6 g/dL Albumin/Globulin Ratio 1.3 (1.0-2.7) 1.2 (1.0-2.7) 1.2 (1.0-2.7) Lipase 105 U/L (73-393) Thyroid Stimulating Hormone (TSH) 2.697 uiU/mL (0.358-3.740) 3.131 uiU/mL (0.358-3.740) Free Thyroxine 1.29 NG/DL (0.76-1.46) Free Triiodothyronine 2.5 pg/mL (2.3-4.2) Cortisol 26.4 UG/DL Urine Color Pale yellow Urine Appearance Clear Urine pH 6 (4.5-8.0) Urine Specific [place] 1.015 (1.005-1.035) Urine Protein 1+ (NEGATIVE) H Urine Glucose (UA) 2+ (NEGATIVE) H Urine Ketones 4+ (NEGATIVE) H Urine Blood 2+ (NEGATIVE) H Urine Nitrite Negative (NEGATIVE) Urine Bilirubin Negative (NEGATIVE) Urine Urobilinogen Normal MG/DL (0.0-1.0) Urine Leukocyte Esterase Negative (NEGATIVE) Urine RBC 10-15 /HPF (0 - 2) H Urine WBC 0-2 /HPF (0 - 2) Urine Squamous Epithelial Cells Few /LPF (NONE/OCC) Urine Bacteria Few /HPF (NONE) Urine Osmolality 459 mOsm/kg (429-449) H Urine Random Sodium 83 mmol/L (20-110) Triglycerides Level 100 MG/DL (30-150) Cholesterol Level 220 MG/DL (< 200) H LDL Cholesterol 144 mg/dL (<100) H HDL Cholesterol 56 MG/DL (40-60) Cholesterol/HDL Ratio 3.9 (3.3-4.4) Height (Feet): 5 Height (Inches): 2.00 Weight (Pounds): 144 Medications Current Medications Medications (Trade) Dose Ordered Sig/Ethan Route PRN Reason Start Time Stop Time Status Last Admin Dose Admin Acetaminophen (Tylenol) 650 mg Q4H PRN ORAL Temp >100.5 11/06/20 21:30 12/06/20 21:29 11/06/20 22:48 Amlodipine Besylate (Norvasc) 5 mg DAILY ORAL 11/07/20 09:00 12/07/20 08:59 11/07/20 09:43 Aspirin (Ecotrin) 81 mg DAILY ORAL 11/07/20 09:00 12/22/20 08:59 11/07/20 09:43 Dextrose (Dextrose 50%) 25 ml Q30MIN PRN IV Hypoglycemia 11/06/20 21:30 02/04/21 21:29 Dextrose (Dextrose 50%) 50 ml Q30MIN PRN IV Hypoglycemia 11/06/20 21:30 02/04/21 21:29 Heparin Sodium (Porcine) (Heparin 5000 units/ml) 5,000 units EVERY 8 HOURS SUBQ 11/07/20 14:00 12/22/20 13:59 Hydralazine HCl (Apresoline) 25 mg Q12HR ORAL 11/07/20 09:00 02/05/21 08:59 11/07/20 09:43 Nebivolol (Bystolic) 5 mg DAILY ORAL 11/07/20 09:00 12/07/20 08:59 11/07/20 09:43 Ondansetron HCl (Zofran) 4 mg Q6H PRN IVP Nausea & Vomiting 11/06/20 21:30 12/06/20 21:29 Polyethylene Glycol (Miralax) 17 gm HSPRN PRN ORAL Constipation 11/06/20 21:30 12/06/20 21:29 Sodium Chloride 500 ml @ 30 mls/hr ONCE ONCE IV 11/06/20 23:00 11/07/20 15:39 11/06/20 23:14 Sodium Chloride 1,000 ml @ 300 mls/hr Q3H20M IV 11/06/20 18:30 12/06/20 18:29 11/07/20 07:57 Zolpidem Tartrate (Ambien) 5 mg HSPRN PRN ORAL Insomnia 11/06/20 21:30 11/13/20 21:29 11/06/20 23:59 Assessment/Plan Problem List: (1) Acute hyponatremia ICD Codes: E87.1 - Hypo-osmolality and hyponatremia SNOMED: 4024939 (2) SIADH (syndrome of inappropriate ADH production) ICD Codes: E22.2 - Syndrome of inappropriate secretion of antidiuretic hormone SNOMED: 52674739 (3) Diabetes mellitus ICD Codes: E11.9 - Type 2 diabetes mellitus without complications SNOMED: 62337728 (4) History of CVA (cerebrovascular accident) ICD Codes: Z86.73 - Personal history of transient ischemic attack (TIA), and cerebral infarction without residual deficits SNOMED: 659912460 (5) History of hypertension ICD Codes: Z86.79 - Personal history of other diseases of the circulatory system SNOMED: 288249773 (6) Osteoarthritis ICD Codes: M19.90 - Unspecified osteoarthritis, unspecified site SNOMED: 118601099 Assessment/Plan: hyponatremia w/u 3% at 30 cc finished, Na is much better sliding scale hyponatremia w/u check electrolytes dvt prophylaxis. Jessi Porter MD Nov 07, 2020 11:30
--- NOTE | 2020-11-07 11:40 | NUR ---
PT EVALUATION NOTE Patient seen for initial evaluation and treatment initiated. Patient presents with generalized weakness, L knee pain and decreased balance which impairs patient's ability to perform mobility skills safely. Patient requires SBA/CGA for transfers with FWW. Patient able to ambulate 80 ft with FWW and SBA/CGA, verbal cues for pacing and safety. Patient will benefit from skilled inpatient PT intervention to increase strength and postural stability for improved level of functional mobility and safety. Recommend discharge home with caregiver assistance once medically cleared by MD. Patient has FWW and rollator at home. Addendum: 11/07/20 at 1317 by EDUARDO SELBY PT Amended: Links added.
[2020-11-07 12:00] VITALS: BP 127/54
--- NOTE | 2020-11-07 14:01 | Internal Med Progress Note ---
Subjective Physician Name Redd Goodwin Attending Physician Redd Goodwin MD Current Medications Medications (Trade) Dose Ordered Sig/Ethan Route PRN Reason Start Time Stop Time Status Last Admin Dose Admin Acetaminophen (Tylenol) 650 mg Q4H PRN ORAL Temp >100.5 11/06/20 21:30 12/06/20 21:29 11/06/20 22:48 Amlodipine Besylate (Norvasc) 5 mg DAILY ORAL 11/07/20 09:00 12/07/20 08:59 11/07/20 09:43 Aspirin (Ecotrin) 81 mg DAILY ORAL 11/07/20 09:00 12/22/20 08:59 11/07/20 09:43 Dextrose (Dextrose 50%) 25 ml Q30MIN PRN IV Hypoglycemia 11/06/20 21:30 02/04/21 21:29 Dextrose (Dextrose 50%) 50 ml Q30MIN PRN IV Hypoglycemia 11/06/20 21:30 02/04/21 21:29 Heparin Sodium (Porcine) (Heparin 5000 units/ml) 5,000 units EVERY 8 HOURS SUBQ 11/07/20 14:00 12/22/20 13:59 Hydralazine HCl (Apresoline) 25 mg Q12HR ORAL 11/07/20 09:00 02/05/21 08:59 11/07/20 09:43 Nebivolol (Bystolic) 5 mg DAILY ORAL 11/07/20 09:00 12/07/20 08:59 11/07/20 09:43 Ondansetron HCl (Zofran) 4 mg Q6H PRN IVP Nausea & Vomiting 11/06/20 21:30 12/06/20 21:29 Polyethylene Glycol (Miralax) 17 gm HSPRN PRN ORAL Constipation 11/06/20 21:30 12/06/20 21:29 Sodium Chloride 500 ml @ 30 mls/hr ONCE ONCE IV 11/06/20 23:00 11/07/20 15:39 11/06/20 23:14 Sodium Chloride 1,000 ml @ 300 mls/hr Q3H20M IV 11/06/20 18:30 12/06/20 18:29 11/07/20 11:36 Zolpidem Tartrate (Ambien) 5 mg HSPRN PRN ORAL Insomnia 11/06/20 21:30 11/13/20 21:29 11/06/20 23:59 Allergies: Coded Allergies: PREDNISONE (Verified Allergy, Severe, REDNESS, SWELLING, 03/06/14) PENICILLINS (Verified Allergy, Intermediate, 03/18/17) Subjective awake, alert, responsive, denies any chest pain or shortness of breath, sodium improving from 115-118-126. Objective Last Vital Signs Date Time Temp Pulse Resp B/P (MAP) Pulse Ox O2 Delivery O2 Flow Rate FiO2 11/07/20 12:00 97.7 67 18 127/54 (78) 98 11/07/20 09:00 Room Air Laboratory Tests Test 11/06/20 17:21 11/06/20 18:40 11/06/20 19:17 11/07/20 04:13 White Blood Count 8.1 K/UL (4.8-10.8) 6.8 K/UL (4.8-10.8) Red Blood Count 4.41 M/UL (4.20-5.40) 3.97 M/UL (4.20-5.40) L Hemoglobin 13.6 G/DL (12.0-16.0) 12.3 G/DL (12.0-16.0) Hematocrit 36.5 % (37.0-47.0) L 31.7 % (37.0-47.0) L Mean Corpuscular Volume 83 FL (80-99) 80 FL (80-99) Mean Corpuscular Hemoglobin 30.7 PG (27.0-31.0) 31.0 PG (27.0-31.0) Mean Corpuscular Hemoglobin Concent 37.1 G/DL (32.0-36.0) H 38.8 G/DL (32.0-36.0) H Red Cell Distribution Width 11.5 % (11.6-14.8) L 13.1 % (11.6-14.8) Platelet Count 188 K/UL (150-450) 171 K/UL (150-450) Mean Platelet Volume 9.7 FL (6.5-10.1) 9.8 FL (6.5-10.1) Neutrophils (%) (Auto) 81.1 % (45.0-75.0) H 55.0 % (45.0-75.0) Lymphocytes (%) (Auto) 10.5 % (20.0-45.0) L 29.1 % (20.0-45.0) Monocytes (%) (Auto) 7.7 % (1.0-10.0) 14.8 % (1.0-10.0) H Eosinophils (%) (Auto) 0.1 % (0.0-3.0) 0.3 % (0.0-3.0) Basophils (%) (Auto) 0.6 % (0.0-2.0) 0.7 % (0.0-2.0) Prothrombin Time 11.2 SEC (9.30-11.50) Prothromb Time International Ratio 1.0 (0.9-1.1) Activated Partial Thromboplast Time 26 SEC (23-33) Sodium Level 115 MMOL/L (136-145) *L 118 MMOL/L (136-145) *L 126 MMOL/L (136-145) L Potassium Level 3.0 MMOL/L (3.5-5.1) L 3.0 MMOL/L (3.5-5.1) L 2.9 MMOL/L (3.5-5.1) L Chloride Level 82 MMOL/L (98-107) L 85 MMOL/L (98-107) L 95 MMOL/L (98-107) L Carbon Dioxide Level 22 MMOL/L (21-32) 22 MMOL/L (21-32) 23 MMOL/L (21-32) Anion Gap 11 mmol/L (5-15) 10 mmol/L (5-15) 8 mmol/L (5-15) Blood Urea Nitrogen 14 mg/dL (7-18) 11 mg/dL (7-18) 9 mg/dL (7-18) Creatinine 0.8 MG/DL (0.55-1.30) 0.7 MG/DL (0.55-1.30) 0.6 MG/DL (0.55-1.30) Estimat Glomerular Filtration Rate > 60 mL/min (>60) > 60 mL/min (>60) > 60 mL/min (>60) Glucose Level 168 MG/DL (74-106) H 152 MG/DL (74-106) H 118 MG/DL (74-106) H Osmolality 253 mOsm/kg (297-317) L Uric Acid 2.9 MG/DL (2.6-7.2) Calcium Level 8.2 MG/DL (8.5-10.1) L 7.9 MG/DL (8.5-10.1) L 7.8 MG/DL (8.5-10.1) L Total Bilirubin 1.1 MG/DL (0.2-1.0) H 1.0 MG/DL (0.2-1.0) 0.7 MG/DL (0.2-1.0) Direct Bilirubin 0.2 MG/DL (0.0-0.3) Aspartate Amino Transf (AST/SGOT) 19 U/L (15-37) 19 U/L (15-37) 22 U/L (15-37) Alanine Aminotransferase (ALT/SGPT) 33 U/L (12-78) 32 U/L (12-78) 29 U/L (12-78) Alkaline Phosphatase 97 U/L (46-116) 92 U/L (46-116) 82 U/L (46-116) Troponin I 0.007 ng/mL (0.000-0.056) Total Protein 6.8 G/DL (6.4-8.2) 6.3 G/DL (6.4-8.2) L 5.8 G/DL (6.4-8.2) L Albumin 3.8 G/DL (3.4-5.0) 3.5 G/DL (3.4-5.0) 3.2 G/DL (3.4-5.0) L Globulin 3.0 g/dL 2.8 g/dL 2.6 g/dL Albumin/Globulin Ratio 1.3 (1.0-2.7) 1.2 (1.0-2.7) 1.2 (1.0-2.7) Lipase 105 U/L (73-393) Thyroid Stimulating Hormone (TSH) 2.697 uiU/mL (0.358-3.740) 3.131 uiU/mL (0.358-3.740) Free Thyroxine 1.29 NG/DL (0.76-1.46) Free Triiodothyronine 2.5 pg/mL (2.3-4.2) Cortisol 26.4 UG/DL Urine Color Pale yellow Urine Appearance Clear Urine pH 6 (4.5-8.0) Urine Specific [place] 1.015 (1.005-1.035) Urine Protein 1+ (NEGATIVE) H Urine Glucose (UA) 2+ (NEGATIVE) H Urine Ketones 4+ (NEGATIVE) H Urine Blood 2+ (NEGATIVE) H Urine Nitrite Negative (NEGATIVE) Urine Bilirubin Negative (NEGATIVE) Urine Urobilinogen Normal MG/DL (0.0-1.0) Urine Leukocyte Esterase Negative (NEGATIVE) Urine RBC 10-15 /HPF (0 - 2) H Urine WBC 0-2 /HPF (0 - 2) Urine Squamous Epithelial Cells Few /LPF (NONE/OCC) Urine Bacteria Few /HPF (NONE) Urine Osmolality 459 mOsm/kg (429-449) H Urine Random Sodium 83 mmol/L (20-110) Triglycerides Level 100 MG/DL (30-150) Cholesterol Level 220 MG/DL (< 200) H LDL Cholesterol 144 mg/dL (<100) H HDL Cholesterol 56 MG/DL (40-60) Cholesterol/HDL Ratio 3.9 (3.3-4.4) Intake and Output 11/06/20 11/07/20 19:00 07:00 Intake Total 500 ml 600 ml Balance 500 ml 600 ml Intake Oral 300 ml IV Total 500 ml 300 ml # Voids 2 Objective General: No acute distress, awake and alert HEENT: NCAT, sclera anicteric, PERRL, EOMI. Neck: Supple, no significant jugular venous distention, Lungs: Good inspiratory effort, no accessory muscle use, clear to auscultation bilaterally, no Wheeze or Rales. Heart: Regular rate and rhythm, normal S1/S2, no murmurs/gallops Abdomen: soft, nontender, nondistended. Normoactive bowel sounds, obesity. / Rectal: Refused and deferred. Extremities: No Cyanosis , clubbing or edema. 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 PT mobility. Redd Goodwin MD Nov 07, 2020 14:01
[2020-11-07] MEDS: Heparin 5000 units/ml inj SUBQ SCH ×2 (14:14→21:26)
[2020-11-07 16:00] VITALS: BP 123/64
--- NOTE | 2020-11-07 19:19 | NUR ---
NURSE HAND-OFF REPORT: Important Events on Shift:[PT came to work with her] Patient Status: [Full code] Diet: [regular] Pending Orders: [] Pending Results/Labs:[] Pending MD notification:[] Latest Vital Signs: Temperature 97.7 , Pulse 72 , B/P 123 /64 , Respiratory Rate 20 , O2 SAT 98 , Room Air, O2 Flow Rate . Vital Sign Comment: [] EKG Rhythm: Sinus Rhythm Rhythm change?: N MD Notified?: - MD Response: Latest Cortez Fall Score: 45 Fall Risk: High Risk Safety Measures: Call light Within Reach, Bed Alarm Zone 2, Side Rails Side Rails x3, Bed position Low and Locked. Fall Precautions: Yellow Socks Yellow Gown Patient Fall Education Report given to [FRANDY Tobar].
--- NOTE | 2020-11-07 19:24 | General Progress Note ---
Advance Care Planning Advance Care Planning Advance Care Planning Internal Medicine Hospitalist Advanced Care Planning Note Date of Discussion: A uyaz-ca-hypy discussion with the patient regarding the patient's advanced care planning took place during this hospitalization on the above date. The discussion included the explanation and discussion of advance directives and associated forms/documents, as well as the patient's current code status. We also discussed at length the patient's medical conditions (both acute and chronic), general prognosis, treatment options, and goals of care. The following summarizes the discussion: Advance Care Planning/Goals of Care: - Will attempt to fill out an AD and/or POLST with the patient prior to discharge, if not already completed - Continue current evaluation and management of any acute and chronic medical issues - Will continue to support the patient/family - Will continue to discuss both short- and long-term goals of care DPOA-HC/Surrogate Decision Maker: None currently appointed Code Status: Full Code Advanced Care Planning Forms/Documents Completed: Deferred until later encounter/visit A total of less than 30 minutes was spent on this discussion, including counseling, answering questions, and completing, if any, pertinent advanced care planning forms/documents. Time of note may not reflect time of encounter. Redd Goodwin MD Nov 07, 2020 19:24
--- NOTE | 2020-11-07 19:45 | NUR ---
NURSE NOTES: Patient wheezing and SOB on exertion and occasional productive cough. Notified MD and called back with new orders. Verified and carried out. Will continue plan of care. Addendum: 11/07/20 at 2329 by Ekaterina Melo RN Time 2140
[2020-11-07 20:00] VITALS: BP 165/65
[2020-11-07] MEDS: Zolpidem 5mg tab ORAL PRN (21:25)
[2020-11-07] MEDS ORDERED: guaiFENesin /DM 10ml syrup ORAL PRN (21:45)
--- NOTE | 2020-11-07 22:00 | NUR ---
NURSE NOTES: Called RT for breathing treatment but unable to do so without Rapid covid test. Notified doctor sharri awaiting call back
--- NOTE | 2020-11-07 22:00 | History and Physical Report ---
DATE OF ADMISSION: 11/06/2020 CHIEF COMPLAINT: Nausea, vomiting, and diarrhea. HISTORY OF PRESENT ILLNESS: This is an 85-year-old very delightful American-speaking female with past medical history significant for diabetes type 2, hypertension, dyslipidemia, and history of right brain aneurysm status post clips x2, history of left total knee replacement who presented to the emergency department complaining about nausea, vomiting, diarrhea over past 2 to 3 days. The patient denies any headache or loss of consciousness, complained about weakness and fatigue, feeling thirsty. She has been able to keep down the water. She denies any fever, chills, cough, bright red blood per rectum or loss of consciousness. Complained about chest discomfort, however, denies any shortness of breath. Denies any exposure to COVID positive patient. Shortly after initial evaluation in the emergency department, the patient was noted to have severe hyponatremia with sodium of 115 and a potassium was 3.0. Subsequently, the patient was admitted to the hospital with severe dehydration, hyponatremia, as well as hypokalemia most likely secondary to the nausea and vomiting. PAST MEDICAL HISTORY/PAST SURGICAL HISTORY: As above history of recent hospitalization in 2017 with noted to be acute hyponatremia possible due to dehydration, was worked up for SIADH, severe hypokalemia, hypertension, diabetic, prior history of stroke, osteoarthritis, history of right-sided brain aneurysm status post of clips twice, depression, history of left knee total knee arthroplasty. MEDICATIONS: At home, please refer to medication reconciliation. ALLERGIES: Penicillin and prednisone. SOCIAL HISTORY: Denies any smoking, alcohol, or drugs. FAMILY HISTORY: Noncontributory. REVIEW OF SYSTEMS: Mostly as above. Denies any dysuria, frequency, hematuria. Complained of nausea, vomiting. Denies any hemoptysis or hematochezia. Denies any bright red blood per rectum. Denies any loss of consciousness or fall or head trauma. Denies any suicidal or homicidal. PHYSICAL EXAMINATION: VITAL SIGNS: On admission, temperature 99, pulse of 84, respirations 18, and blood pressure 184/94. GENERAL: The patient is awake, responsive, in no acute distress. HEENT: Head and neck examination, pupils are equal and reactive to light. Extraocular movement intact. NECK: Supple. No JVD. LUNGS: Good air entry. No wheezes or rales. HEART: S1, S2. Regular rhythm. No murmur or gallops. ABDOMEN: Soft, nondistended, nontender. Mildly obese. EXTREMITIES: No cyanosis, clubbing, or edema. NEUROLOGIC: Cranial nerves II through XII grossly intact. Motor is 5/5 in all extremities. Gait was not assessed due to patient's status. RECTAL: Refused and deferred. GENITOURINARY: Refused and deferred. PSYCHIATRIC: Mood and affect is intact. LABORATORY AND DIAGNOSTIC DATA: On admission from the emergency department, sodium 115, potassium 3.0, chloride 82, bicarb 22, BUN 14, creatinine 0.8, glucose is 168. Total bilirubin of 1.1, calcium is 8.2, ALT of 19, AST of 33, alkaline phosphatase 97. Lipase is 105. PT of 11, INR 1.0, PTT of 26. WBC of 8.1, hemoglobin of 13, hematocrit 36, platelet is 188. UA is +1 protein, +2 glucose, +4 ketones, +2 blood, rbc's 10 to 15, negative leukocytes, negative nitrites. The patient's abdominal x-ray, nonspecific, nonobstructive bowel gas pattern. Chest x-ray, pulmonary vascular congestion with bibasilar airspace opacity which may represent combination of atelectasis and edema, but pneumonia should be excluded. ASSESSMENT: 1. Severe hyponatremia, possible SIADH and dehydration. 2. Hypokalemia. 3. Dehydration and hypovolemia. 4. Diabetes type 2. 5. Morbid obesity. 6. Hypertension. 7. Dyslipidemia. 8. History of CVA. 9. Right-sided brain aneurysm status post clips. PLAN: Admit patient to monitored unit. We will follow up with Dr. Porter from Pulmonary Critical Care consultation. Followup with the laboratory, 3% hyperosmolar sodium chloride. Monitor blood glucose level closely. Code status is Full code. DVT prophylaxis, heparin subcutaneous. Redd Goodwin M.D. DR: Anel JOB#: [id number] CC:
[2020-11-07] MEDS: guaiFENesin /DM 10ml syrup ORAL PRN (22:07)
--- NOTE | 2020-11-07 23:26 | NUR ---
NURSE NOTES: Patient received from Josette WISE. Patient in stable condition. Alert and oriented x4. Saturating well on room air. No c/o pain and no s/s of distress. Able to ambulate with walker. IV site patent and intact on Left AC 20G running NS @300cc/hr. Bed in lowest position and locked. Call light and bedside table within reach. Will continue plan of care. Addendum: 11/07/20 at 2330 by Ekaterina Melo RN Time 1944
[2020-11-08] VITALS: BP 153/62
--- NOTE | 2020-11-08 02:00 | NUR ---
NURSE NOTES: Rapid test results came back negative.
[2020-11-08 04:00] VITALS: BP 152/58
[2020-11-08] MEDS: guaiFENesin /DM 10ml syrup ORAL PRN (05:31)
[2020-11-08] MEDS: Heparin 5000 units/ml inj SUBQ SCH ×2 (05:32→14:00)
[2020-11-08 06:59] LABS: EOSINOPHILS % (AUTO) 0.7 % (0.0-3.0); HEMATOCRIT 31.1 % (37.0-47.0); HEMOGLOBIN 11.3 G/DL (12.0-16.0); LYMPHOCYTES % (AUTO) 41.9 % (20.0-45.0); MEAN CORPUSCULAR VOLUME 84 FL (80-99); MONOCYTES % (AUTO) 13.4 % (1.0-10.0); PLATELET COUNT 149 K/UL (150-450); RED BLOOD COUNT 3.71 M/UL (4.20-5.40); RED CELL DISTRIBUTION WIDTH 12.3 % (11.6-14.8); WHITE BLOOD COUNT 5.5 K/UL (4.8-10.8)
[2020-11-08 07:23] LABS: ALANINE AMINOTRANSFERASE 23 U/L (12-78); ALBUMIN/GLOBULIN RATIO 1.2 (1.0-2.7); ALKALINE PHOSPHATASE 76 U/L (46-116); ANION GAP 8 mmol/L (5-15); ASPARTATE AMINO TRANSFERASE 22 U/L (15-37); BILIRUBIN,TOTAL 0.4 MG/DL (0.2-1.0); BLOOD UREA NITROGEN 6 mg/dL (7-18); CALCIUM 7.8 MG/DL (8.5-10.1); CARBON DIOXIDE 25 MMOL/L (21-32); CHLORIDE 100 MMOL/L (98-107); CREATININE 0.6 MG/DL (0.55-1.30); PHOSPHORUS 2.1 MG/DL (2.5-4.9); SODIUM 133 MMOL/L (136-145)
--- NOTE | 2020-11-08 07:40 | NUR ---
NURSE HAND-OFF REPORT: Important Events on Shift:[No significant events] Patient Status: [Stable, FC] Diet: [Regular] Pending Orders: [] Pending Results/Labs:[] Pending MD notification:[] Latest Vital Signs: Temperature 98.1 , Pulse 67 , B/P 152 /58 , Respiratory Rate 20 , O2 SAT 94 , Room Air, O2 Flow Rate . Vital Sign Comment: [] EKG Rhythm: Sinus Rhythm Rhythm change?: N MD Notified?: - MD Response: Latest Cortez Fall Score: 45 Fall Risk: High Risk Safety Measures: Call light Within Reach, Bed Alarm Zone 2, Side Rails Side Rails x3, Bed position Low and Locked. Fall Precautions: Yellow Socks Yellow Gown Patient Fall Education Report given to [Livia RN].
--- NOTE | 2020-11-08 07:40 | NUR ---
NURSE NOTES: Pt received from Nakita WISE. Pt in bed asks for assistance to the restroom. Bed low and locked call light within reach. No distress however audible expiratory wheezes noted. Will call RT for breathing tx shortly.
[2020-11-08 08:00] VITALS: BP 143/59
[2020-11-08 08:02] LABS: POTASSIUM 2.7 MMOL/L (3.5-5.1)
[2020-11-08] MEDS: Albuterol/Ipratropium 3ml neb HHN PRN ×2 (08:29→19:13)
--- NOTE | 2020-11-08 08:55 | Diagnostic Imaging Report ---
EXAM: XR Chest, 2 Views CLINICAL HISTORY: SOB TECHNIQUE: Frontal and lateral views of the chest. COMPARISON: Chest radiograph November 06, 2020 FINDINGS/IMPRESSION: No focal consolidation or pneumothorax. Left base atelectasis. Mild vascular congestion. Follow-up chest radiograph recommended. Suspect, small left effusion. The heart size is enlarged. The aorta is calcified.
[2020-11-08] MEDS: Bystolic 2.5mg Tab ORAL SCH (09:13)
[2020-11-08] MEDS: Aspirin EC 81mg tab ORAL SCH (09:13)
[2020-11-08] MEDS: HydrALAZINE 25mg tab ORAL SCH ×2 (09:13→20:24)
[2020-11-08] MEDS ORDERED: Morphine Sulfate 2mg/ml Inj(IV/IM USE ONLY) IVP PRN (10:45)
[2020-11-08] MEDS ORDERED: Nitroglycerin Subl 0.4mg tab SL PRN (10:45)
[2020-11-08 12:00] VITALS: BP 138/60
--- NOTE | 2020-11-08 13:04 | Pulmonology Progress Note ---
Subjective ROS Limited/Unobtainable: No Constitutional: Reports: no symptoms HEENT: Repors: no symptoms Allergies: Coded Allergies: PREDNISONE (Verified Allergy, Severe, REDNESS, SWELLING, 03/06/14) PENICILLINS (Verified Allergy, Intermediate, 03/18/17) Objective Last 24 Hour Vital Signs Date Time Temp Pulse Resp B/P (MAP) Pulse Ox O2 Delivery O2 Flow Rate FiO2 11/08/20 12:00 97.5 65 20 138/60 (86) 95 11/08/20 12:00 63 11/08/20 10:56 134/58 11/08/20 09:14 65 143/59 11/08/20 09:13 143/59 11/08/20 09:00 Room Air 11/08/20 08:00 64 11/08/20 08:00 97.5 65 20 143/59 (87) 95 11/08/20 04:00 98.1 71 20 152/58 (89) 94 11/08/20 04:00 67 11/08/20 00:00 69 11/08/20 00:00 97.9 72 20 153/62 (92) 95 11/07/20 21:33 165/65 11/07/20 21:00 Room Air 11/07/20 20:00 98.4 72 22 165/65 (98) 98 11/07/20 20:00 72 11/07/20 16:00 72 11/07/20 16:00 97.7 67 20 123/64 (83) 98 Intake and Output 11/07/20 11/08/20 19:00 07:00 Intake Total 360 ml 250 ml Balance 360 ml 250 ml Intake Oral 360 ml 250 ml # Voids 5 3 General Appearance: WD/WN, no acute distress Abdomen: normal bowel sounds, soft, non tender Genitourinary: normal external genitalia Extremities: no cyanosis Skin: no rash 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: 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, no motor/sensory deficits Microbiology Date/Time Source Procedure Growth Status 11/08/20 01:00 Nasopharynx SARS-CoV-2 RdRp Gene Assay - Final Complete Laboratory Tests 11/08/20 06:37: White Blood Count 5.5, Red Blood Count 3.71L, Hemoglobin 11.3L, Hematocrit 31.1L , Mean Corpuscular Volume 84, Mean Corpuscular Hemoglobin 30.4, Mean Corpuscular Hemoglobin Concent 36.2H, Red Cell Distribution Width 12.3, Platelet Count 149L, Mean Platelet Volume 9.1, Neutrophils (%) (Auto) 43.0L, Lymphocytes (%) (Auto) 41.9, Monocytes (%) (Auto) 13.4H, Eosinophils (%) (Auto) 0.7, Basophils (%) (Auto) 1.0, Sodium Level 133L, Potassium Level 2.7*L, Chloride Level 100, Carbon Dioxide Level 25, Anion Gap 8, Blood Urea Nitrogen 6L, Creatinine 0.6, Estimat Glomerular Filtration Rate > 60, Glucose Level 122H, Calcium Level 7.8L, Phosphorus Level 2.1L, Magnesium Level 1.4L, Total Bilirubin 0.4, Aspartate Amino Transf (AST/SGOT) 22, Alanine Aminotransferase (ALT/SGPT) 23, Alkaline Phosphatase 76, Troponin I 0.055, Total Protein 5.5L, Albumin 3.0L, Globulin 2.5, Albumin/Globulin Ratio 1.2 Current Medications Medications (Trade) Dose Ordered Sig/Ethan Route PRN Reason Start Time Stop Time Status Last Admin Dose Admin Acetaminophen (Tylenol) 650 mg Q4H PRN ORAL Temp >100.5 11/06/20 21:30 12/06/20 21:29 11/06/20 22:48 Albuterol/ Ipratropium (Albuterol/ Ipratropium) 3 ml Q4H PRN HHN Shortness of Breath 11/07/20 20:00 11/12/20 19:59 11/08/20 08:29 Amlodipine Besylate (Norvasc) 5 mg DAILY ORAL 11/07/20 09:00 12/07/20 08:59 11/08/20 09:14 Aspirin (Ecotrin) 81 mg DAILY ORAL 11/07/20 09:00 12/22/20 08:59 11/08/20 09:13 Dextrose (Dextrose 50%) 25 ml Q30MIN PRN IV Hypoglycemia 11/06/20 21:30 02/04/21 21:29 Dextrose (Dextrose 50%) 50 ml Q30MIN PRN IV Hypoglycemia 11/06/20 21:30 02/04/21 21:29 Guaifenesin/ Dextromethorphan (Robitussin DM Syrup) 5 ml Q6H PRN ORAL For Cough 11/07/20 22:00 02/05/21 21:59 11/08/20 05:31 Heparin Sodium (Porcine) (Heparin 5000 units/ml) 5,000 units EVERY 8 HOURS SUBQ 11/07/20 14:00 12/22/20 13:59 11/08/20 05:32 Hydralazine HCl (Apresoline) 25 mg Q12HR ORAL 11/07/20 09:00 02/05/21 08:59 11/08/20 09:13 Morphine Sulfate (Morphine Sulfate) 2 mg Q2H PRN IVP For Pain 11/08/20 10:45 11/15/20 10:44 Nebivolol (Bystolic) 5 mg DAILY ORAL 11/07/20 09:00 12/07/20 08:59 11/08/20 09:13 Nitroglycerin (Ntg) 0.4 mg Q5M PRN SL Prn Chest Pain 11/08/20 10:45 12/08/20 10:44 11/08/20 10:56 Ondansetron HCl (Zofran) 4 mg Q6H PRN IVP Nausea & Vomiting 11/06/20 21:30 12/06/20 21:29 Polyethylene Glycol (Miralax) 17 gm HSPRN PRN ORAL Constipation 11/06/20 21:30 12/06/20 21:29 Sodium Chloride 1,000 ml @ 300 mls/hr Q3H20M IV 11/06/20 18:30 12/06/20 18:29 11/08/20 12:20 Zolpidem Tartrate (Ambien) 5 mg HSPRN PRN ORAL Insomnia 11/06/20 21:30 11/13/20 21:29 11/07/20 21:25 Assessment/Plan Problems: (1) Acute hyponatremia (2) SIADH (syndrome of inappropriate ADH production) (3) Diabetes mellitus (4) History of CVA (cerebrovascular accident) (5) History of hypertension (6) Osteoarthritis Assessment/Plan Na is better no new complains hyponatremia w/u sliding scale check electrolytes dvt prophylaxis. Jessi Porter MD Nov 08, 2020 13:04
--- NOTE | 2020-11-08 15:11 | Consultation ---
Consult Note Assessment/Plan Renal note dictated # [id number] Sánchez Cunningham MD Nov 08, 2020 15:11
[2020-11-08] MEDS ORDERED: Tubing IV Secondary IV ONE (15:34)
[2020-11-08] MEDS ORDERED: NS 275ml ONE (15:34)
[2020-11-08 16:00] VITALS: BP 165/65
--- NOTE | 2020-11-08 16:23 | Consultation ---
Consult Note Consult Note Cardiology for Dr. Fung Full consult dictated # [id number] Armida Kuo MD Nov 08, 2020 16:23
--- NOTE | 2020-11-08 17:44 | Internal Med Progress Note ---
Subjective Date of Service: Nov 08, 2020 Physician Name TeriKermit Attending Physician Redd Goodwin MD Current Medications Medications (Trade) Dose Ordered Sig/Ethan Route PRN Reason Start Time Stop Time Status Last Admin Dose Admin Acetaminophen (Tylenol) 650 mg Q4H PRN ORAL Temp >100.5 11/06/20 21:30 12/06/20 21:29 11/06/20 22:48 Albuterol/ Ipratropium (Albuterol/ Ipratropium) 3 ml Q4H PRN HHN Shortness of Breath 11/07/20 20:00 11/12/20 19:59 11/08/20 08:29 Amlodipine Besylate (Norvasc) 5 mg DAILY ORAL 11/07/20 09:00 12/07/20 08:59 11/08/20 09:14 Aspirin (Ecotrin) 81 mg DAILY ORAL 11/07/20 09:00 12/22/20 08:59 11/08/20 09:13 Dextrose (Dextrose 50%) 25 ml Q30MIN PRN IV Hypoglycemia 11/06/20 21:30 02/04/21 21:29 Dextrose (Dextrose 50%) 50 ml Q30MIN PRN IV Hypoglycemia 11/06/20 21:30 02/04/21 21:29 Guaifenesin/ Dextromethorphan (Robitussin DM Syrup) 5 ml Q6H PRN ORAL For Cough 11/07/20 22:00 02/05/21 21:59 11/08/20 05:31 Hydralazine HCl (Apresoline) 25 mg Q12HR ORAL 11/07/20 09:00 02/05/21 08:59 11/08/20 09:13 Magnesium Sulfate 100 ml @ 100 mls/hr Q1H IVPB 11/08/20 16:30 11/08/20 18:29 11/08/20 16:48 Morphine Sulfate (Morphine Sulfate) 2 mg Q2H PRN IVP For Pain 11/08/20 10:45 11/15/20 10:44 Nebivolol (Bystolic) 5 mg DAILY ORAL 11/07/20 09:00 12/07/20 08:59 11/08/20 09:13 Nitroglycerin (Ntg) 0.4 mg Q5M PRN SL Prn Chest Pain 11/08/20 10:45 12/08/20 10:44 11/08/20 10:56 Ondansetron HCl (Zofran) 4 mg Q6H PRN IVP Nausea & Vomiting 11/06/20 21:30 12/06/20 21:29 Polyethylene Glycol (Miralax) 17 gm HSPRN PRN ORAL Constipation 11/06/20 21:30 12/06/20 21:29 Potassium Chloride (K-Dur) 40 meq ONCE ORAL 11/08/20 16:00 11/08/20 18:00 11/08/20 15:45 Zolpidem Tartrate (Ambien) 5 mg HSPRN PRN ORAL Insomnia 11/06/20 21:30 11/13/20 21:29 11/07/20 21:25 Allergies: Coded Allergies: PREDNISONE (Verified Allergy, Severe, REDNESS, SWELLING, 03/06/14) PENICILLINS (Verified Allergy, Intermediate, 03/18/17) ROS Limited/Unobtainable: Yes Subjective 85 YO F admitted with nausea, vomiting and diarrhea. Now hyponatremia and hypokalemia. Cover for Int Med-DR Goodwin Objective Last Vital Signs Date Time Temp Pulse Resp B/P (MAP) Pulse Ox O2 Delivery O2 Flow Rate FiO2 11/08/20 16:00 63 11/08/20 12:00 97.5 20 138/60 (86) 95 11/08/20 09:00 Room Air Laboratory Tests Test 11/08/20 06:37 White Blood Count 5.5 K/UL (4.8-10.8) Red Blood Count 3.71 M/UL (4.20-5.40) L Hemoglobin 11.3 G/DL (12.0-16.0) L Hematocrit 31.1 % (37.0-47.0) L Mean Corpuscular Volume 84 FL (80-99) Mean Corpuscular Hemoglobin 30.4 PG (27.0-31.0) Mean Corpuscular Hemoglobin Concent 36.2 G/DL (32.0-36.0) H Red Cell Distribution Width 12.3 % (11.6-14.8) Platelet Count 149 K/UL (150-450) L Mean Platelet Volume 9.1 FL (6.5-10.1) Neutrophils (%) (Auto) 43.0 % (45.0-75.0) L Lymphocytes (%) (Auto) 41.9 % (20.0-45.0) Monocytes (%) (Auto) 13.4 % (1.0-10.0) H Eosinophils (%) (Auto) 0.7 % (0.0-3.0) Basophils (%) (Auto) 1.0 % (0.0-2.0) Sodium Level 133 MMOL/L (136-145) L Potassium Level 2.7 MMOL/L (3.5-5.1) *L Chloride Level 100 MMOL/L (98-107) Carbon Dioxide Level 25 MMOL/L (21-32) Anion Gap 8 mmol/L (5-15) Blood Urea Nitrogen 6 mg/dL (7-18) L Creatinine 0.6 MG/DL (0.55-1.30) Estimat Glomerular Filtration Rate > 60 mL/min (>60) Glucose Level 122 MG/DL (74-106) H Calcium Level 7.8 MG/DL (8.5-10.1) L Phosphorus Level 2.1 MG/DL (2.5-4.9) L Magnesium Level 1.4 MG/DL (1.8-2.4) L Total Bilirubin 0.4 MG/DL (0.2-1.0) Aspartate Amino Transf (AST/SGOT) 22 U/L (15-37) Alanine Aminotransferase (ALT/SGPT) 23 U/L (12-78) Alkaline Phosphatase 76 U/L (46-116) Troponin I 0.055 ng/mL (0.000-0.056) Total Protein 5.5 G/DL (6.4-8.2) L Albumin 3.0 G/DL (3.4-5.0) L Globulin 2.5 g/dL Albumin/Globulin Ratio 1.2 (1.0-2.7) Microbiology Date/Time Source Procedure Growth Status 11/08/20 01:00 Nasopharynx SARS-CoV-2 RdRp Gene Assay - Final Complete Intake and Output 11/07/20 11/08/20 19:00 07:00 Intake Total 360 ml 250 ml Balance 360 ml 250 ml Intake Oral 360 ml 250 ml # Voids 5 3 Objective PHYSICAL EXAMINATION: GENERAL: The patient is awake, responsive, in no acute distress. HEENT: Head and neck examination, pupils are equal and reactive to light. Extraocular movement intact. NECK: Supple. No JVD. LUNGS: Good air entry. No wheezes or rales. HEART: S1, S2. Regular rhythm. No murmur or gallops. ABDOMEN: Soft, nondistended, nontender. Mildly obese. EXTREMITIES: No cyanosis, clubbing, or edema. NEUROLOGIC: Cranial nerves II through XII grossly intact. Motor is 5/5 in all extremities. Gait was not assessed due to patient's status. RECTAL: Refused and deferred. GENITOURINARY: Refused and deferred. PSYCHIATRIC: Mood and affect is intact. Assessment/Plan Assessment/Plan Assessment/Plan Assessment/Plan Assessment/Plan severe hyponatremia possible SIADH Dehydration and hypovolemia Hypokalemia Diabetic type II Dyslipidemia Hypertension Morbid obesity Right brain aneurysm status post of Clips Plan: Monitor laboratory closely IV hydration Monitor blood glucose level CODE STATUS: Full code DVT prophylaxis: Heparin subcu Follow-up with pulmonary critical care and nephrology consultation. PT mobility. Kermit Williamson MD Nov 08, 2020 17:44
--- NOTE | 2020-11-08 18:30 | Consultation ---
DATE OF CONSULTATION: NEPHROLOGY CONSULTATION REFERRING PHYSICIAN: Redd Goodwin M.D. REASON FOR CONSULTATION: Hyponatremia and hypokalemia. HISTORY OF PRESENT ILLNESS: This is an 85-year-old [place] female who was admitted on 11/06/2020 for reported nausea, vomiting, and diarrhea. She says that last week she was not feeling well and she was prescribed Cymbalta by her primary medical doctor and she still did not feel good. She took 2 days in a row the medications and finally came to the emergency room on 11/06/2020. There is report of nausea, vomiting, and diarrhea, but she said she did not have diarrhea. She did have problem with nausea and vomited also and could not take any food. In the emergency room, she was found to have hyponatremia with serum sodium of 118. Potassium was down to 3.0. At this time, the patient received some 3% saline. Her serum sodium has improved to 132 today, potassium still low at 2.7. She has normal kidney function. BUN is 6, creatinine 0.6. She had urine studies done showing urine osmolality of 459, urine sodium of 83. PAST MEDICAL HISTORY: Apparently, the patient has had hyponatremia in the past. She has history of hypertension, diabetes, reported history of CVA. ALLERGIES: No known drug allergies. MEDICATIONS AT THE TIME OF ADMISSION: Reviewed. She was not on any diuretics. REVIEW OF SYSTEMS: As above. PHYSICAL EXAMINATION: GENERAL: The patient is an elderly female, in no acute distress. VITAL SIGNS: Blood pressure 138/60, pulse 65, temperature 97.5. HEENT: Jenison conjunctivae. Anicteric sclerae. NECK: Supple. LUNGS: Clear to auscultation. HEART: S1, S2 without murmurs or rubs. ABDOMEN: Soft, nontender. EXTREMITIES: No cyanosis or edema. LABORATORY FINDINGS: The CBC shows WBC of 5900, hematocrit 31.1, hemoglobin 11.3, platelets 149,000. Chemistry panel shows serum sodium 133, potassium 2.7, chloride 100, BUN is 6, creatinine 0.6, blood sugar is 122, calcium 7.8, phosphorus 2.1. Albumin is 3. ASSESSMENT: This is an 85-year-old [place] female who was admitted with reported history of nausea, vomiting, also diarrhea, which she denies at this point. She has severe hypokalemia, which could be as a result of vomiting and causing volume depletion and metabolic alkalosis. Her hyponatremia could be again also from volume depletion, although she was taking also Cymbalta, which could cause SIADH. Since the patient had previous hyponatremia, it is possible the patient has chronic SIADH as well. She has low calcium and phosphorus. In that setting, vitamin D deficiency needs to be ruled out. PLANS: I would replete potassium. The patient needs to be on free water restriction for hyponatremia. If serum sodium drops significantly, 3% saline could be administered. If she turns out to have chronic SIADH, demeclocycline could be prescribed. Labs will be followed and further recommendations will be given based on those results. Thank you very much for this consultation. Sánchez Cunningham M.D. DR: ABHIJIT JOB#: [id number] CC:
--- NOTE | 2020-11-08 18:42 | NUR ---
NURSE HAND-OFF REPORT: Important Events on Shift:[Pt complained of 9/10 chest pain early in shift. Vitals were all normal and EKG came back normal. pain reduced to 6/10 after 1 nitro but pt refused second dose of nitro. Dr. Samano made aware of all of this. Pt Bp slightly high at 4pm however trended down and pt has hyrdalazine due at 9. Noted that pt tends to become hypertensive at night. Pt complains of shortness of rbeath but continues to have good saturations. 1 liter 02 applied for comfort and to ease anxiet.] Patient Status: [In bed, wheezing, RT called] Diet: [Regular] Pending Orders: [] Pending Results/Labs:[] Pending MD notification:[Endorse to day shift to ask Dr. samano for prn for htn. ] Latest Vital Signs: Temperature 97.8 , Pulse 64 , B/P 165 /65 , Respiratory Rate 20 , O2 SAT 95 , Room Air, O2 Flow Rate . Vital Sign Comment: [] EKG Rhythm: Sinus Rhythm Rhythm change?: N MD Notified?: - MD Response: Latest Cortez Fall Score: 45 Fall Risk: High Risk Safety Measures: Call light Within Reach, Bed Alarm Zone 2, Side Rails Side Rails x3, Bed position Low and Locked. Fall Precautions: Yellow Socks Yellow Gown Patient Fall Education Report given to [pending rn assignment]. Addendum: 11/08/20 at 1947 by Livia Johnson RN Report given to Belinda WISE
[2020-11-08 20:00] VITALS: BP 144/57
--- NOTE | 2020-11-08 20:02 | Consultation ---
DATE OF CONSULTATION: 11/08/2020 CARDIOLOGY CONSULTATION Coverage for Dr. Fung. CONSULTING PHYSICIAN: Armida Kuo M.D. REASON FOR CONSULT: Chest pain. HISTORY OF PRESENT ILLNESS: The patient is an 85-year-old [place] woman with hypertension, diabetes, hyperlipidemia, cerebral aneurysm, treated with clips and history of hyponatremia, who was admitted with severe hyponatremia, sodium 118 and hypokalemia, potassium 3.0 in the setting of 2 to 3 days of nausea and vomiting. This began after she started duloxetine per her primary physician. She complains of left chest pain intermittently and Cardiology evaluation was requested. She states that she has not had previous history of myocardial infarction, angina, or arrhythmia. Her troponin today was 0.055, borderline. She has no chest pain currently. PAST MEDICAL HISTORY: As noted above. MEDICATIONS: Hydralazine, Bystolic, and Janumet, (home medications) as well as duloxetine (new medication started about 5 days prior to admission). ALLERGIES: Penicillin and prednisone. SOCIAL HISTORY: The patient has no history of tobacco or alcohol use. PHYSICAL EXAMINATION: VITAL SIGNS: Blood pressure is 138/60, pulse 63 and regular, respirations 20, afebrile. Oxygen saturation 95% on room air. GENERAL: Alert, well-developed white female, in no acute distress. HEENT: Normocephalic and atraumatic. Pupils are equal, round, and reactive to light. Sclerae are anicteric. NECK: Supple. There is no jugular venous distention. LUNGS: Clear to auscultation bilaterally. HEART: Regular rate and rhythm. S1 and S2. No murmurs, rubs, S3, or S4. ABDOMEN: Soft, nontender. No palpable mass. EXTREMITIES: No cyanosis, clubbing, or edema. Healed left knee surgical scar. NEUROLOGIC: Alert and oriented. No gross focal motor deficits. LABORATORY AND DIAGNOSTIC DATA: Sodium 118 on admission, currently 133; potassium 2.7; chloride 100; bicarbonate 25; BUN 8; and creatinine 0.6. Troponin 0.055. Hemoglobin 11, hematocrit 31, and white blood count 5500. Urine studies include urine osmolality of 459 and urine sodium 83. EKG shows sinus rhythm at 62 beats per minute, axis +20 degrees. Nonspecific T-wave changes. No ST depression or elevation. ASSESSMENT AND RECOMMENDATIONS: The patient is an 85-year-old woman with a history of hypertension, diabetes, cerebral aneurysm, treated surgically and history of hyponatremia, uncertain etiology, who was admitted with recurrent hyponatremia and hypokalemia. She is being evaluated by Nephrology. She did develop chest pain today and has borderline troponin. However, her EKG does not show any ischemic changes. I would favor obtaining an echo to assess left ventricular function and wall motion. Depending on results and her course, we would consider a stress nuclear study. Another EKG and serial troponin levels will be obtained. She has been treated over the past two days with improvement in her sodium, but persistent hypokalemia. The cause of her metabolic abnormalities is uncertain, but is being evaluated by Nephrology. It may be due to her recent nausea and vomiting. She now complains of intermittent chest pain. She is a fair historian. Her troponin is borderline, but EKG does not show any acute ischemic changes. She does have coronary risk factors of hypertension, diabetes, and hyperlipidemia. I would favor continuing Bystolic and aspirin, would titrate her antihypertensives which include amlodipine, hydralazine and Bystolic, to maintain systolic blood pressure less than 140 and diastolic less than 90. We will check additional troponin and EKG. We will obtain an echo to evaluate left ventricular systolic function and valves. Depending on her clinical course, she may eventually need further evaluation for ischemia with a stress nuclear study. Dr. Fung will continue to follow the patient starting 11/10/2020. Thank you for allowing us to participate in her care. Armida Kuo M.D. DR: BRIAN JOB#: [id number] CC:
[2020-11-08] MEDS: Zolpidem 5mg tab ORAL PRN (20:23)
--- NOTE | 2020-11-08 21:10 | NUR ---
NURSE NOTES: Received report from Livia Rn, pt. in bed awake, A/O x's4- able to make needs known, no signs or symptoms of acute cardiac or respiratory distress noted, bed alarm on, side rails up x's 3 and safety brakes engaged- pt. aware to ask for assist if ambulating- call light within easy reach, pt. appears to be sating well on 2L NC- at 95%- no distress noted, pt. appears clean and dry, pt. has urinal at bedside and within easy reach,, Left AC 20G IV intact and patent, aspiration precautions observed, safety measures continued, will continue with plan of care.
[2020-11-09] VITALS: BP 146/63
[2020-11-09 04:00] VITALS: BP 151/62
--- NOTE | 2020-11-09 06:58 | NUR ---
NURSE NOTES: Pt received from Belinda WISE. Pt in bed resting. Bed low and locked call light within reach. No distress however audible expiratory wheezes noted like yesterday. Will call RT for breathing tx shortly.
--- NOTE | 2020-11-09 07:20 | NUR ---
NURSE HAND-OFF REPORT: Important Events on Shift:none Patient Status: stable Diet: Regular Pending Orders: Pending Results/Labs: Pending MD notification: Latest Vital Signs: Temperature 98.2 , Pulse 69 , B/P 151 /62 , Respiratory Rate 20 , O2 SAT 97 , Nasal Cannula, O2 Flow Rate 2.0 . Vital Sign Comment: EKG Rhythm: Sinus Rhythm Rhythm change?: N MD Notified?: - MD Response: Latest Cortez Fall Score: 45 Fall Risk: High Risk Safety Measures: Call light Within Reach, Bed Alarm Zone 2, Side Rails Side Rails x3, Bed position Low and Locked. Fall Precautions: Yellow Socks Yellow Gown Patient Fall Education Report given to RAMAKRISHNA, RN, pt. remains stable and no signs of distress noted. aware to f/u on any abnormal am labs.
[2020-11-09 08:00] VITALS: BP 154/80
[2020-11-09] MEDS: Albuterol/Ipratropium 3ml neb HHN PRN (08:16)
[2020-11-09] MEDS: HydrALAZINE 25mg tab ORAL SCH (08:57)
[2020-11-09] MEDS: Aspirin EC 81mg tab ORAL SCH (08:58)
[2020-11-09] MEDS: Bystolic 2.5mg Tab ORAL SCH (08:58)
--- NOTE | 2020-11-09 09:12 | NUR ---
NURSE NOTES: Please note that this patient refused to take the amlodapine at the scheduled time. States that 3 BP meds is too much since she is on bystolic and hydralazine. Bp noted to be in 150s. I will monitor the 12 pm pressure. Pt states she will take it after lunch.
[2020-11-09 09:56] LABS: ANION GAP 9 mmol/L (5-15); BLOOD UREA NITROGEN 5 mg/dL (7-18); CALCIUM 7.9 MG/DL (8.5-10.1); CARBON DIOXIDE 26 MMOL/L (21-32); CHLORIDE 93 MMOL/L (98-107); CREATININE 0.5 MG/DL (0.55-1.30); SODIUM 127 MMOL/L (136-145)
[2020-11-09 10:14] LABS: BASOPHILS % (AUTO) 0.4 % (0.0-2.0); EOSINOPHILS % (AUTO) 0.2 % (0.0-3.0); HEMATOCRIT 32.8 % (37.0-47.0); HEMOGLOBIN 11.7 G/DL (12.0-16.0); LYMPHOCYTES % (AUTO) 23.6 % (20.0-45.0); MEAN CORPUSCULAR VOLUME 83 FL (80-99); MONOCYTES % (AUTO) 5.4 % (1.0-10.0); NEUTROPHILS % (AUTO) 70.4 % (45.0-75.0); PLATELET COUNT 153 K/UL (150-450); RED BLOOD COUNT 3.94 M/UL (4.20-5.40); RED CELL DISTRIBUTION WIDTH 12.8 % (11.6-14.8); WHITE BLOOD COUNT 8.9 K/UL (4.8-10.8)
[2020-11-09 12:00] VITALS: BP 174/71
--- NOTE | 2020-11-09 14:07 | Pulmonology Progress Note ---
Subjective ROS Limited/Unobtainable: Yes Constitutional: Reports: no symptoms HEENT: Repors: no symptoms Allergies: Coded Allergies: PREDNISONE (Verified Allergy, Severe, REDNESS, SWELLING, 03/06/14) PENICILLINS (Verified Allergy, Intermediate, 03/18/17) Objective Last 24 Hour Vital Signs Date Time Temp Pulse Resp B/P (MAP) Pulse Ox O2 Delivery O2 Flow Rate FiO2 11/09/20 13:19 70 174/71 11/09/20 12:00 70 11/09/20 12:00 97.7 64 20 174/71 (105) 96 11/09/20 09:00 Nasal Cannula 2.0 11/09/20 08:57 154/80 11/09/20 08:00 69 11/09/20 08:00 97.0 73 20 154/80 (104) 95 11/09/20 07:58 95 Nasal Cannula 2.0 28 11/09/20 07:58 78 20 95 Nasal Cannula 2.0 28 11/09/20 04:00 98.2 69 20 151/62 (91) 97 11/09/20 03:47 60 11/09/20 02:08 98.9 11/09/20 00:03 72 11/09/20 00:00 100.3 71 20 146/63 (90) 96 11/08/20 21:00 Nasal Cannula 2.0 11/08/20 20:24 144/57 11/08/20 20:08 80 11/08/20 20:00 97.5 68 20 144/57 (86) 95 11/08/20 19:23 84 20 99 Nasal Cannula 2.0 28 11/08/20 19:13 95 Nasal Cannula 2.0 28 11/08/20 19:13 83 20 95 Nasal Cannula 2.0 28 11/08/20 19:13 83 20 95 Nasal Cannula 2.0 28 11/08/20 16:00 97.8 64 20 165/65 (98) 95 11/08/20 16:00 63 Intake and Output 11/08/20 11/09/20 19:00 07:00 Intake Total 700 ml Output Total 700 ml Balance 0 ml Intake Oral 700 ml Output Urine Total 700 ml # Voids 3 4 General Appearance: WD/WN, no acute distress Abdomen: normal bowel sounds, soft, non tender Genitourinary: normal external genitalia Extremities: no cyanosis Skin: no rash Neurologic: pals specialist II-XII grossly normal, no motor/sensory deficits Microbiology Date/Time Source Procedure Growth Status 11/08/20 01:00 Nasopharynx SARS-CoV-2 RdRp Gene Assay - Final Complete Laboratory Tests 11/09/20 07:17: White Blood Count 8.9#, Red Blood Count 3.94L, Hemoglobin 11.7L, Hematocrit 32.8L, Mean Corpuscular Volume 83, Mean Corpuscular Hemoglobin 29.7, Mean Corpuscular Hemoglobin Concent 35.8, Red Cell Distribution Width 12.8, Platelet Count 153, Mean Platelet Volume 10.1, Neutrophils (%) (Auto) 70.4, Lymphocytes (%) (Auto) 23.6, Monocytes (%) (Auto) 5.4, Eosinophils (%) (Auto) 0.2, Basophils (%) (Auto) 0.4, Sodium Level 127L, Potassium Level 3.0L, Chloride Level 93L, Carbon Dioxide Level 26, Anion Gap 9, Blood Urea Nitrogen 5L, Creatinine 0.5L, Estimat Glomerular Filtration Rate > 60, Glucose Level 129H, Calcium Level 7.9L, Phosphorus Level 2.0L, Magnesium Level 1.9, Troponin I 0.038, Vitamin D 25-Hydroxy [Pending], 25-Hydroxy Vitamin D2 [Pending], 25-Hydroxy Vitamin D3 [Pending] Current Medications Medications (Trade) Dose Ordered Sig/Ethan Route PRN Reason Start Time Stop Time Status Last Admin Dose Admin Acetaminophen (Tylenol) 650 mg Q4H PRN ORAL Temp >100.5 11/06/20 21:30 12/06/20 21:29 11/09/20 01:38 Albuterol/ Ipratropium (Albuterol/ Ipratropium) 3 ml Q4H PRN HHN Shortness of Breath 11/07/20 20:00 11/12/20 19:59 11/09/20 08:16 Amlodipine Besylate (Norvasc) 5 mg DAILY ORAL 11/07/20 09:00 12/07/20 08:59 11/09/20 13:19 Aspirin (Ecotrin) 81 mg DAILY ORAL 11/07/20 09:00 12/22/20 08:59 11/09/20 08:58 Dextrose (Dextrose 50%) 25 ml Q30MIN PRN IV Hypoglycemia 11/06/20 21:30 02/04/21 21:29 Dextrose (Dextrose 50%) 50 ml Q30MIN PRN IV Hypoglycemia 11/06/20 21:30 02/04/21 21:29 Guaifenesin/ Dextromethorphan (Robitussin DM Syrup) 5 ml Q6H PRN ORAL For Cough 11/07/20 22:00 02/05/21 21:59 11/08/20 05:31 Hydralazine HCl (Apresoline) 25 mg Q12HR ORAL 11/07/20 09:00 02/05/21 08:59 11/09/20 08:57 Morphine Sulfate (Morphine Sulfate) 2 mg Q2H PRN IVP For Pain 11/08/20 10:45 11/15/20 10:44 Nebivolol (Bystolic) 5 mg DAILY ORAL 11/07/20 09:00 12/07/20 08:59 11/09/20 08:58 Nitroglycerin (Ntg) 0.4 mg Q5M PRN SL Prn Chest Pain 11/08/20 10:45 12/08/20 10:44 11/08/20 10:56 Ondansetron HCl (Zofran) 4 mg Q6H PRN IVP Nausea & Vomiting 11/06/20 21:30 12/06/20 21:29 Polyethylene Glycol (Miralax) 17 gm HSPRN PRN ORAL Constipation 11/06/20 21:30 12/06/20 21:29 Zolpidem Tartrate (Ambien) 5 mg HSPRN PRN ORAL Insomnia 11/06/20 21:30 11/13/20 21:29 11/08/20 20:23 Assessment/Plan Problems: (1) Acute hyponatremia (2) SIADH (syndrome of inappropriate ADH production) (3) Diabetes mellitus (4) History of CVA (cerebrovascular accident) (5) History of hypertension (6) Osteoarthritis Assessment/Plan Na is slightly lower today no new complains hyponatremia w/u sliding scale check electrolytes dvt prophylaxis. Jessi Porter MD Nov 09, 2020 14:07
--- NOTE | 2020-11-09 14:14 | Internal Med Progress Note ---
Subjective Date of Service: Nov 09, 2020 Physician Name TeriKermit Attending Physician Redd Goodwin MD Current Medications Medications (Trade) Dose Ordered Sig/Ethan Route PRN Reason Start Time Stop Time Status Last Admin Dose Admin Acetaminophen (Tylenol) 650 mg Q4H PRN ORAL Temp >100.5 11/06/20 21:30 12/06/20 21:29 11/09/20 01:38 Albuterol/ Ipratropium (Albuterol/ Ipratropium) 3 ml Q4H PRN HHN Shortness of Breath 11/07/20 20:00 11/12/20 19:59 11/09/20 08:16 Amlodipine Besylate (Norvasc) 5 mg DAILY ORAL 11/07/20 09:00 12/07/20 08:59 11/09/20 13:19 Aspirin (Ecotrin) 81 mg DAILY ORAL 11/07/20 09:00 12/22/20 08:59 11/09/20 08:58 Dextrose (Dextrose 50%) 25 ml Q30MIN PRN IV Hypoglycemia 11/06/20 21:30 02/04/21 21:29 Dextrose (Dextrose 50%) 50 ml Q30MIN PRN IV Hypoglycemia 11/06/20 21:30 02/04/21 21:29 Guaifenesin/ Dextromethorphan (Robitussin DM Syrup) 5 ml Q6H PRN ORAL For Cough 11/07/20 22:00 02/05/21 21:59 11/08/20 05:31 Hydralazine HCl (Apresoline) 25 mg Q12HR ORAL 11/07/20 09:00 02/05/21 08:59 11/09/20 08:57 Morphine Sulfate (Morphine Sulfate) 2 mg Q2H PRN IVP For Pain 11/08/20 10:45 11/15/20 10:44 Nebivolol (Bystolic) 5 mg DAILY ORAL 11/07/20 09:00 12/07/20 08:59 11/09/20 08:58 Nitroglycerin (Ntg) 0.4 mg Q5M PRN SL Prn Chest Pain 11/08/20 10:45 12/08/20 10:44 11/08/20 10:56 Ondansetron HCl (Zofran) 4 mg Q6H PRN IVP Nausea & Vomiting 11/06/20 21:30 12/06/20 21:29 Polyethylene Glycol (Miralax) 17 gm HSPRN PRN ORAL Constipation 11/06/20 21:30 12/06/20 21:29 Zolpidem Tartrate (Ambien) 5 mg HSPRN PRN ORAL Insomnia 11/06/20 21:30 11/13/20 21:29 11/08/20 20:23 Allergies: Coded Allergies: PREDNISONE (Verified Allergy, Severe, REDNESS, SWELLING, 03/06/14) PENICILLINS (Verified Allergy, Intermediate, 03/18/17) ROS Limited/Unobtainable: No Constitutional: Reports: no symptoms HEENT: Reports: no symptoms Cardiovascular: Reports: no symptoms Respiratory: Reports: no symptoms Gastrointestinal/Abdominal: Reports: no symptoms Genitourinary: Reports: no symptoms Neurologic/Psychiatric: Reports: no symptoms Subjective 85 YO F admitted with nausea, vomiting and diarrhea. Now hyponatremia and hypokalemia. Cover for Int Timi-DR Goodwin Objective Last Vital Signs Date Time Temp Pulse Resp B/P (MAP) Pulse Ox O2 Delivery O2 Flow Rate FiO2 11/09/20 13:19 70 174/71 11/09/20 12:00 97.7 20 96 11/09/20 09:00 Nasal Cannula 2.0 11/09/20 07:58 28 Laboratory Tests Test 11/09/20 07:17 White Blood Count 8.9 K/UL (4.8-10.8) # Red Blood Count 3.94 M/UL (4.20-5.40) L Hemoglobin 11.7 G/DL (12.0-16.0) L Hematocrit 32.8 % (37.0-47.0) L Mean Corpuscular Volume 83 FL (80-99) Mean Corpuscular Hemoglobin 29.7 PG (27.0-31.0) Mean Corpuscular Hemoglobin Concent 35.8 G/DL (32.0-36.0) Red Cell Distribution Width 12.8 % (11.6-14.8) Platelet Count 153 K/UL (150-450) Mean Platelet Volume 10.1 FL (6.5-10.1) Neutrophils (%) (Auto) 70.4 % (45.0-75.0) Lymphocytes (%) (Auto) 23.6 % (20.0-45.0) Monocytes (%) (Auto) 5.4 % (1.0-10.0) Eosinophils (%) (Auto) 0.2 % (0.0-3.0) Basophils (%) (Auto) 0.4 % (0.0-2.0) Sodium Level 127 MMOL/L (136-145) L Potassium Level 3.0 MMOL/L (3.5-5.1) L Chloride Level 93 MMOL/L (98-107) L Carbon Dioxide Level 26 MMOL/L (21-32) Anion Gap 9 mmol/L (5-15) Blood Urea Nitrogen 5 mg/dL (7-18) L Creatinine 0.5 MG/DL (0.55-1.30) L Estimat Glomerular Filtration Rate > 60 mL/min (>60) Glucose Level 129 MG/DL (74-106) H Calcium Level 7.9 MG/DL (8.5-10.1) L Phosphorus Level 2.0 MG/DL (2.5-4.9) L Magnesium Level 1.9 MG/DL (1.8-2.4) Troponin I 0.038 ng/mL (0.000-0.056) Vitamin D 25-Hydroxy Pending 25-Hydroxy Vitamin D2 Pending 25-Hydroxy Vitamin D3 Pending Microbiology Date/Time Source Procedure Growth Status 11/08/20 01:00 Nasopharynx SARS-CoV-2 RdRp Gene Assay - Final Complete Intake and Output 11/08/20 11/09/20 19:00 07:00 Intake Total 700 ml Output Total 700 ml Balance 0 ml Intake Oral 700 ml Output Urine Total 700 ml # Voids 3 4 Objective PHYSICAL EXAMINATION: GENERAL: The patient is awake, responsive, in no acute distress. HEENT: Head and neck examination, pupils are equal and reactive to light. Extraocular movement intact. NECK: Supple. No JVD. LUNGS: Good air entry. No wheezes or rales. HEART: S1, S2. Regular rhythm. No murmur or gallops. ABDOMEN: Soft, nondistended, nontender. Mildly obese. EXTREMITIES: No cyanosis, clubbing, or edema. NEUROLOGIC: Cranial nerves II through XII grossly intact. Motor is 5/5 in all extremities. Gait was not assessed due to patient's status. RECTAL: Refused and deferred. GENITOURINARY: Refused and deferred. PSYCHIATRIC: Mood and affect is intact. Assessment/Plan Assessment/Plan K Assessment/Plan Assessment/Plan Assessment/Plan severe hyponatremia possible SIADH Dehydration and hypovolemia Hypokalemia Diabetic type II Dyslipidemia Hypertension Morbid obesity Right brain aneurysm status post of Clips Plan: Monitor laboratory closely IV hydration Monitor blood glucose level CODE STATUS: Full code DVT prophylaxis: Heparin subcu Follow-up with pulmonary critical care and nephrology consultation. PT mobility. replace potassium Kermit Williamson MD Nov 09, 2020 14:14
[2020-11-09 16:00] VITALS: BP 156/69
--- NOTE | 2020-11-09 16:21 | Cardiology Progress Note ---
Assessment/Plan Problem List: (1) Dyspnea (2) Hyponatremia (3) Hypertension (4) Hypokalemia (5) Acute hyponatremia Status: stable, not improved Status Narrative Mrs. Guerra is hypertensive. She c/o dyspnea and cxr shows mild pulm congestion. She remains hyponatremic, and is also hypokalemic Assessment/Plan Will give aldactone today, for K-sparing diuretic effects. Supplement K Would start lasix tomorrow if K has improved. Continue bystolic and add lisinopril for HTN Evaluation and management of hyponatremia per nephrology Subjective ROS Limited/Unobtainable: No Subjective Cardiology for Dr. Fung Pt w/nonproductive cough and dyspnea. Objective Last 24 Hour Vital Signs Date Time Temp Pulse Resp B/P (MAP) Pulse Ox O2 Delivery O2 Flow Rate FiO2 11/09/20 13:19 70 174/71 11/09/20 12:00 70 11/09/20 12:00 97.7 64 20 174/71 (105) 96 11/09/20 09:00 Nasal Cannula 2.0 11/09/20 08:57 154/80 11/09/20 08:00 69 11/09/20 08:00 97.0 73 20 154/80 (104) 95 11/09/20 07:58 95 Nasal Cannula 2.0 28 11/09/20 07:58 78 20 95 Nasal Cannula 2.0 28 11/09/20 04:00 98.2 69 20 151/62 (91) 97 11/09/20 03:47 60 11/09/20 02:08 98.9 11/09/20 00:03 72 11/09/20 00:00 100.3 71 20 146/63 (90) 96 11/08/20 21:00 Nasal Cannula 2.0 11/08/20 20:24 144/57 11/08/20 20:08 80 11/08/20 20:00 97.5 68 20 144/57 (86) 95 11/08/20 19:23 84 20 99 Nasal Cannula 2.0 28 11/08/20 19:13 95 Nasal Cannula 2.0 28 11/08/20 19:13 83 20 95 Nasal Cannula 2.0 28 11/08/20 19:13 83 20 95 Nasal Cannula 2.0 28 General Appearance: WD/WN, alert, obese EENT: PERRL/EOMI Neck: supple, no JVD Rhythm: NSR Cardiovascular: normal rate, regular rhythm, no gallop/murmur Respiratory/Chest: other - few crackles and expir wheezes Abdomen: non tender, soft Extremities: no swelling Intake and Output 11/08/20 11/09/20 19:00 07:00 Intake Total 700 ml Output Total 700 ml Balance 0 ml Intake Oral 700 ml Output Urine Total 700 ml # Voids 3 4 Laboratory Tests Test 11/09/20 07:17 White Blood Count 8.9 K/UL (4.8-10.8) # Red Blood Count 3.94 M/UL (4.20-5.40) L Hemoglobin 11.7 G/DL (12.0-16.0) L Hematocrit 32.8 % (37.0-47.0) L Mean Corpuscular Volume 83 FL (80-99) Mean Corpuscular Hemoglobin 29.7 PG (27.0-31.0) Mean Corpuscular Hemoglobin Concent 35.8 G/DL (32.0-36.0) Red Cell Distribution Width 12.8 % (11.6-14.8) Platelet Count 153 K/UL (150-450) Mean Platelet Volume 10.1 FL (6.5-10.1) Neutrophils (%) (Auto) 70.4 % (45.0-75.0) Lymphocytes (%) (Auto) 23.6 % (20.0-45.0) Monocytes (%) (Auto) 5.4 % (1.0-10.0) Eosinophils (%) (Auto) 0.2 % (0.0-3.0) Basophils (%) (Auto) 0.4 % (0.0-2.0) Sodium Level 127 MMOL/L (136-145) L Potassium Level 3.0 MMOL/L (3.5-5.1) L Chloride Level 93 MMOL/L (98-107) L Carbon Dioxide Level 26 MMOL/L (21-32) Anion Gap 9 mmol/L (5-15) Blood Urea Nitrogen 5 mg/dL (7-18) L Creatinine 0.5 MG/DL (0.55-1.30) L Estimat Glomerular Filtration Rate > 60 mL/min (>60) Glucose Level 129 MG/DL (74-106) H Calcium Level 7.9 MG/DL (8.5-10.1) L Phosphorus Level 2.0 MG/DL (2.5-4.9) L Magnesium Level 1.9 MG/DL (1.8-2.4) Troponin I 0.038 ng/mL (0.000-0.056) Vitamin D 25-Hydroxy Pending 25-Hydroxy Vitamin D2 Pending 25-Hydroxy Vitamin D3 Pending Microbiology Date/Time Source Procedure Growth Status 11/08/20 01:00 Nasopharynx SARS-CoV-2 RdRp Gene Assay - Final Complete Armida Kuo MD Nov 09, 2020 16:21
[2020-11-09] MEDS: Lisinopril 10mg tab ORAL SCH (17:11)
[2020-11-09] MEDS: Spironolactone 25mg tab ORAL SCH (17:11)
--- NOTE | 2020-11-09 18:09 | NUR ---
NURSE HAND-OFF REPORT: Important Events on Shift:[Pt continues to wheeze, relived by brathing tx temporarily. Discussed with Dr. Samano pt tendency to refuse amlodipine until the afternoon. Hernán discussed that BP med are not keeping bp in normal range, therefore doses increased. Pt trold by Dr. Williamson that likely kidneys are involved in current condition and that he will discuus with Dr. Caballero. Daughter informed of this conversation] Patient Status: [in bed resting, stable but wheezing, i have called RT but they are with a critical pt in ICU someone will come shortly ] Diet: [Regular] Pending Orders: [] Pending Results/Labs:[] Pending MD notification:[] Latest Vital Signs: Temperature 97.7 , Pulse 67 , B/P 168 /68 , Respiratory Rate 20 , O2 SAT 98 , Nasal Cannula, O2 Flow Rate 2.0 . Vital Sign Comment: [] EKG Rhythm: Sinus Rhythm Rhythm change?: N MD Notified?: - MD Response: Latest Cortez Fall Score: 45 Fall Risk: High Risk Safety Measures: Call light Within Reach, Bed Alarm Zone 1, Side Rails Side Rails x2, Bed position Low and Locked. Fall Precautions: Yellow Socks Yellow Gown Door Sign Patient Fall Education Report given to [Pending Rn Assignment ]. Addendum: 11/09/20 at 1915 by Livia Johnson RN Report given mirtha Vivas RN. RT called.
--- NOTE | 2020-11-09 19:12 | Nephrology Progress Note ---
Assessment/Plan Problem List: (1) Hyponatremia (2) Hypokalemia (3) Diabetes mellitus (4) SIADH (syndrome of inappropriate ADH production) (5) Osteoarthritis (6) HTN (hypertension) Plan free water restriction Dc IVF free water restriction follow BMP Discussed with RN Restart Amlodipine Subjective Subjective feels ok Objective Objective Last 24 Hour Vital Signs Date Time Temp Pulse Resp B/P (MAP) Pulse Ox O2 Delivery O2 Flow Rate FiO2 11/09/20 17:11 168/68 11/09/20 16:20 97.7 11/09/20 16:00 97.7 63 20 156/69 (98) 98 11/09/20 16:00 67 11/09/20 13:19 70 174/71 11/09/20 12:00 70 11/09/20 12:00 97.7 64 20 174/71 (105) 96 11/09/20 09:00 Nasal Cannula 2.0 11/09/20 08:57 154/80 11/09/20 08:00 69 11/09/20 08:00 97.0 73 20 154/80 (104) 95 11/09/20 07:58 95 Nasal Cannula 2.0 28 11/09/20 07:58 78 20 95 Nasal Cannula 2.0 28 11/09/20 04:00 98.2 69 20 151/62 (91) 97 11/09/20 03:47 60 11/09/20 02:08 98.9 11/09/20 00:03 72 11/09/20 00:00 100.3 71 20 146/63 (90) 96 11/08/20 21:00 Nasal Cannula 2.0 11/08/20 20:24 144/57 11/08/20 20:08 80 11/08/20 20:00 97.5 68 20 144/57 (86) 95 11/08/20 19:23 84 20 99 Nasal Cannula 2.0 28 11/08/20 19:13 95 Nasal Cannula 2.0 28 11/08/20 19:13 83 20 95 Nasal Cannula 2.0 28 11/08/20 19:13 83 20 95 Nasal Cannula 2.0 28 Intake and Output 11/08/20 11/09/20 19:00 07:00 Intake Total 700 ml Output Total 700 ml Balance 0 ml Intake Oral 700 ml Output Urine Total 700 ml # Voids 3 4 Laboratory Tests 11/09/20 07:17: White Blood Count 8.9#, Red Blood Count 3.94L, Hemoglobin 11.7L, Hematocrit 32.8L, Mean Corpuscular Volume 83, Mean Corpuscular Hemoglobin 29.7, Mean Corpuscular Hemoglobin Concent 35.8, Red Cell Distribution Width 12.8, Platelet Count 153, Mean Platelet Volume 10.1, Neutrophils (%) (Auto) 70.4, Lymphocytes (%) (Auto) 23.6, Monocytes (%) (Auto) 5.4, Eosinophils (%) (Auto) 0.2, Basophils (%) (Auto) 0.4, Sodium Level 127L, Potassium Level 3.0L, Chloride Level 93L, Carbon Dioxide Level 26, Anion Gap 9, Blood Urea Nitrogen 5L, Creatinine 0.5L, Estimat Glomerular Filtration Rate > 60, Glucose Level 129H, Calcium Level 7.9L, Phosphorus Level 2.0L, Magnesium Level 1.9, Troponin I 0.038, Vitamin D 25- Hydroxy [Pending], 25-Hydroxy Vitamin D2 [Pending], 25-Hydroxy Vitamin D3 [Pending] Height (Feet): 5 Height (Inches): 2.00 Weight (Pounds): 144 Sánchez Cunningham MD Nov 09, 2020 19:12
[2020-11-09 20:00] VITALS: BP 111/69
[2020-11-10] VITALS: BP 148/55
--- NOTE | 2020-11-10 03:30 | NUR ---
NURSE NOTES: Got report from Elsa WISE. Pt in stable condition. Continue to monitor.
[2020-11-10 04:00] VITALS: BP 172/69
[2020-11-10] MEDS: HydrALAZINE 25mg tab ORAL PRN (06:17)
--- NOTE | 2020-11-10 07:15 | NUR ---
NURSE HAND-OFF REPORT: Important Events on Shift:[] Patient Status: [STABLE] Diet: [REGULAR W/800ML FLUID RESTRICTION] Pending Orders: [] Pending Results/Labs:[] Pending MD notification:[] Latest Vital Signs: Temperature 97.9 , Pulse 64 , B/P 172 /69 , Respiratory Rate 18 , O2 SAT 98 , Nasal Cannula, O2 Flow Rate 2.0 . Vital Sign Comment: [] EKG Rhythm: Sinus Rhythm Rhythm change?: N MD Notified?: - MD Response: Latest Cortez Fall Score: 45 Fall Risk: High Risk Safety Measures: Call light Within Reach, Bed Alarm Zone 2, Side Rails Side Rails x3, Bed position Low and Locked. Fall Precautions: Yellow Socks Yellow Gown Patient Fall Education Report given to [JAGJIT/VICTOR M WISE].
[2020-11-10 08:00] VITALS: BP 150/63
--- NOTE | 2020-11-10 08:15 | NUR ---
NURSE NOTES: Received pt report from FRANDY Moulton. Pt is awake and alert, in no apparent distress, the patient is on 2 L Nasal cannula and tolerating well. Pt has an 800 mL fluid restriction in place. Na+ was 127 and was notified per subcontract manager RN. The pt has a left 20 guage AC saline lock that is patent and intact, no redness, no swelling, no infiltration at the IV site. Accuchecks are to be started today 11/10 at lunchtime [facility]. Bed is in the lowest position, locked, side rails x2, fall precautions in place and call light within reach. Will continue to monitor.
[2020-11-10 08:54] LABS: ANION GAP 9 mmol/L (5-15); BLOOD UREA NITROGEN 6 mg/dL (7-18); CALCIUM 8.2 MG/DL (8.5-10.1); CARBON DIOXIDE 24 MMOL/L (21-32); CHLORIDE 90 MMOL/L (98-107); CREATININE 0.5 MG/DL (0.55-1.30); POTASSIUM 3.6 MMOL/L (3.5-5.1); SODIUM 123 MMOL/L (136-145)
[2020-11-10] MEDS ORDERED: Furosemide 40mg tab ORAL SCH (09:00)
[2020-11-10] MEDS: Lisinopril 10mg tab ORAL SCH (09:00)
[2020-11-10 09:16] LABS: BASOPHILS % (AUTO) 0.4 % (0.0-2.0); EOSINOPHILS % (AUTO) 0.4 % (0.0-3.0); HEMATOCRIT 32.9 % (37.0-47.0); HEMOGLOBIN 11.9 G/DL (12.0-16.0); LYMPHOCYTES % (AUTO) 22.4 % (20.0-45.0); MEAN CORPUSCULAR VOLUME 83 FL (80-99); MONOCYTES % (AUTO) 7.6 % (1.0-10.0); NEUTROPHILS % (AUTO) 69.2 % (45.0-75.0); PLATELET COUNT 155 K/UL (150-450); RED BLOOD COUNT 3.95 M/UL (4.20-5.40); RED CELL DISTRIBUTION WIDTH 12.3 % (11.6-14.8); WHITE BLOOD COUNT 11.9 K/UL (4.8-10.8)
[2020-11-10] MEDS: Bystolic 2.5mg Tab ORAL SCH (09:21)
[2020-11-10] MEDS: Aspirin EC 81mg tab ORAL SCH (09:21)
[2020-11-10] MEDS: Spironolactone 25mg tab ORAL SCH (09:21)
[2020-11-10] MEDS: Albuterol/Ipratropium 3ml neb HHN PRN ×2 (09:21→16:07)
--- NOTE | 2020-11-10 10:55 | NUR ---
PT NOTE Attempted to see patient for PT treatment. Patient declined to participate, c/o feeling dizzy and nauseous in bed. Josette WISE notified.
--- NOTE | 2020-11-10 11:27 | NUR ---
NURSE NOTES: Notified Dr. Goodwin to contact patient's daughter to update her on the status of the patient.
[2020-11-10] MEDS: NovoLOG Insulin Flexpen SUBQ SCH ×3 (11:45→21:23)
--- NOTE | 2020-11-10 11:47 | Nephrology Progress Note ---
Assessment/Plan Problem List: (1) Hyponatremia Assessment: worse (2) Hypokalemia (3) Diabetes mellitus (4) SIADH (syndrome of inappropriate ADH production) (5) Osteoarthritis (6) HTN (hypertension) Plan free water restriction start 3 % saline replete K follow BMP watch BP Subjective Subjective feels ok Objective Objective Last 24 Hour Vital Signs Date Time Temp Pulse Resp B/P (MAP) Pulse Ox O2 Delivery O2 Flow Rate FiO2 11/10/20 09:00 76 150/63 11/10/20 09:00 150/63 11/10/20 09:00 Nasal Cannula 2.0 11/10/20 08:00 98.6 76 22 150/63 (92) 98 11/10/20 08:00 74 11/10/20 06:17 172/69 11/10/20 04:00 68 11/10/20 04:00 97.9 64 18 172/69 (103) 98 11/10/20 00:00 97.7 63 20 148/55 (86) 98 11/10/20 00:00 67 11/09/20 21:00 Nasal Cannula 2.0 11/09/20 20:16 98 Nasal Cannula 2.0 28 11/09/20 20:16 64 20 98 Nasal Cannula 2.0 28 11/09/20 20:00 97.7 63 20 111/69 (83) 98 11/09/20 20:00 67 11/09/20 17:11 168/68 11/09/20 16:20 97.7 11/09/20 16:00 97.7 63 20 156/69 (98) 98 11/09/20 16:00 67 11/09/20 13:19 70 174/71 11/09/20 12:00 70 11/09/20 12:00 97.7 64 20 174/71 (105) 96 Intake and Output 11/09/20 11/10/20 19:00 07:00 Intake Total 700 ml Output Total 700 ml Balance 0 ml Intake Oral 700 ml Output Urine Total 700 ml # Voids 3 3 Laboratory Tests 11/10/20 06:59: White Blood Count 11.9H, Red Blood Count 3.95L, Hemoglobin 11.9L, Hematocrit 32.9L, Mean Corpuscular Volume 83, Mean Corpuscular Hemoglobin 30.2, Mean Corpuscular Hemoglobin Concent 36.3H, Red Cell Distribution Width 12.3, Platelet Count 155, Mean Platelet Volume 11.4H, Neutrophils (%) (Auto) 69.2, Lymphocytes (%) (Auto) 22.4, Monocytes (%) (Auto) 7.6, Eosinophils (%) (Auto) 0.4, Basophils (%) (Auto) 0.4, Sodium Level 123L, Potassium Level 3.6, Chloride Level 90L, Carbon Dioxide Level 24, Anion Gap 9, Blood Urea Nitrogen 6L, Creatinine 0.5L, Estimat Glomerular Filtration Rate > 60, Glucose Level 133H, Calcium Level 8.2L Height (Feet): 5 Height (Inches): 2.00 Weight (Pounds): 144 Cardiovascular: normal rate Respiratory/Chest: lungs clear Sánchez Cunningham MD Nov 10, 2020 11:47
[2020-11-10 12:00] VITALS: BP 171/71
--- NOTE | 2020-11-10 13:00 | Consultation ---
DATE OF CONSULTATION: 11/10/2020 ENDOCRINOLOGY CONSULTATION CONSULTING PHYSICIAN: Paul Phillips MD. REFERRING PHYSICIAN: Redd Goodwin MD. REASON FOR CONSULTATION: Hyperglycemia, diabetes. HISTORY OF PRESENT ILLNESS: The patient is an pleasant 85-year-old [place] female who has been admitted to the hospital with hyponatremia with sodium of 115 and potassium of 3. The patient's glucose was elevated and Endocrinology was consulted. The patient is being evaluated by patient care associate and appellate court judge, and the etiology of hyponatremia is thought to be due to SIADH. She is on water restriction and sodium is coming up. PAST MEDICAL HISTORY: 1. Type 2 diabetes, on Janumet. 2. Hypertension. 3. Dyslipidemia. 4. Brain aneurysm, status post clips x2. 5. History of left total knee replacement. PAST SURGICAL HISTORY: Left total knee replacement, brain aneurysm clipping. MEDICATIONS AT HOME: Janumet. ALLERGIES TO MEDICATION: Penicillin and prednisone. SOCIAL HISTORY: No smoking, alcohol, or drug use. FAMILY HISTORY: Noncontributory. REVIEW OF SYSTEMS: A 12-point review of systems was performed, pertinent positives and negative mentioned in the history of present illness. PHYSICAL EXAMINATION: VITAL SIGNS: Blood pressure 122/69, heart rate 68, temperature of 97.9, respiratory rate 18. HEENT: Pupils are equal and reactive to light. Sclerae are anicteric. NECK: No JVD. No thyromegaly. LUNGS: Clear. HEART: Regular rate and rhythm. ABDOMEN: Positive bowel sounds. EXTREMITIES: No clubbing or cyanosis. Positive for edema. DIAGNOSES: 1. Hyponatremia secondary to SIADH. 2. Diabetes. 3. Hypertension. PLAN: 1. Start blood glucose monitoring before meals and at bedtime. 2. Hypoglycemia protocol is in order. 3. Diabetic diet. 4. Continue water restriction. 5. Check hemoglobin A1c. 6. Hold off on Janumet for now until we get an assessment of patient's insulin requirement. 7. I will follow the patient closely during her stay. Thank you, Dr. Goodwin, for the courtesy of this consultation. Paul Phillips M.D. DR: FRANDY/dangelo JOB#: [id number] CC:
--- NOTE | 2020-11-10 13:49 | NUR ---
NURSE NOTES: Updated Dr. Goodwin on pt status. Pt refused to take blood pressure medications, her current blood pressure is 166/68. She also states that she has a 10/10 headache, but refused morphine pain medication. Asked Dr. Goodwin for Tylenol order for pain per pt request. Dr. Goodwin ordered Tylenol 650mg PO Q6h PRN for Pain 6-10.
--- NOTE | 2020-11-10 13:49 | NUR ---
CASE MANAGEMENT:REVIEW 11/10/20 SI: HYPONATREMIA 98.4 76 24 171/71 96% ON 2L/NC NA-123 IS: FLUID RESTRICTION 800ML/DAY IVF NS 250CC X1 K-DUR PO Q4HRS NORVASC PO QD LISINOPRIL PO QD ALDACTONE PO QD BYSTOLIC PO QD ASA PO QD :TELEMETRY STATUS DCP: FROM HOME
--- NOTE | 2020-11-10 15:44 | NUR ---
NURSE NOTES: Patient's family member sent four 12oz glass Alan bottles through delivery service to be sent to patient's room. Patient and granddaughter were notified that pt is on fluid restriction and cannot have bottles in the room or at nurses station due to safety risk. Patient's granddaughter stated it was okay to throw away the 4 Alan bottles because she lived too far to pick them up.
[2020-11-10 16:00] VITALS: BP 148/70
--- NOTE | 2020-11-10 16:37 | NUR ---
NURSE NOTES: Spoke with patient's daughter Shelley Guerra, stated she would like to be called when mother is not understanding medications or treatments. The best number to reach her at is [phone].
--- NOTE | 2020-11-10 17:23 | NUR ---
NURSE NOTES: Patients daughter Shelley called and asked for moms test results. We explained that a doctor could call to interpret the results for her. FRANDY Ambriz and I have sent a message with daughters phone number to Dr. Goodwin and Dr. Porter.
--- NOTE | 2020-11-10 17:28 | Pulmonology Progress Note ---
Subjective ROS Limited/Unobtainable: No Constitutional: Reports: no symptoms HEENT: Repors: no symptoms Allergies: Coded Allergies: PREDNISONE (Verified Allergy, Severe, REDNESS, SWELLING, 03/06/14) PENICILLINS (Verified Allergy, Intermediate, 03/18/17) Objective Last 24 Hour Vital Signs Date Time Temp Pulse Resp B/P (MAP) Pulse Ox O2 Delivery O2 Flow Rate FiO2 11/10/20 16:00 98.2 80 18 148/70 (96) 97 11/10/20 16:00 69 11/10/20 12:00 98.4 76 24 171/71 (104) 96 11/10/20 12:00 81 11/10/20 09:31 83 20 99 Nasal Cannula 2.0 28 79 20 96 11/10/20 09:00 76 150/63 11/10/20 09:00 150/63 11/10/20 09:00 Nasal Cannula 2.0 11/10/20 08:00 98.6 76 22 150/63 (92) 98 11/10/20 08:00 74 11/10/20 07:15 98 Nasal Cannula 2.0 28 11/10/20 07:15 76 20 98 Nasal Cannula 2.0 28 11/10/20 06:17 172/69 11/10/20 04:00 68 11/10/20 04:00 97.9 64 18 172/69 (103) 98 11/10/20 00:00 97.7 63 20 148/55 (86) 98 11/10/20 00:00 67 11/09/20 21:00 Nasal Cannula 2.0 11/09/20 20:16 98 Nasal Cannula 2.0 28 11/09/20 20:16 64 20 98 Nasal Cannula 2.0 28 11/09/20 20:00 97.7 63 20 111/69 (83) 98 11/09/20 20:00 67 Intake and Output 11/09/20 11/10/20 19:00 07:00 Intake Total 700 ml Output Total 700 ml Balance 0 ml Intake Oral 700 ml Output Urine Total 700 ml # Voids 3 3 General Appearance: WD/WN, no acute distress Respiratory: chest wall non-tender, lungs clear Cardiovascular: normal peripheral pulses, normal rate Abdomen: normal bowel sounds, soft, non tender Genitourinary: normal external genitalia Extremities: no cyanosis Skin: no rash Neurologic: tech ed teacher II-XII grossly normal, no motor/sensory deficits Microbiology Date/Time Source Procedure Growth Status 11/08/20 01:00 Nasopharynx SARS-CoV-2 RdRp Gene Assay - Final Complete Laboratory Tests 11/10/20 06:59: White Blood Count 11.9H, Red Blood Count 3.95L, Hemoglobin 11.9L, Hematocrit 32.9L, Mean Corpuscular Volume 83, Mean Corpuscular Hemoglobin 30.2, Mean Corpuscular Hemoglobin Concent 36.3H, Red Cell Distribution Width 12.3, Platelet Count 155, Mean Platelet Volume 11.4H, Neutrophils (%) (Auto) 69.2, Lymphocytes (%) (Auto) 22.4, Monocytes (%) (Auto) 7.6, Eosinophils (%) (Auto) 0.4, Basophils (%) (Auto) 0.4, Sodium Level 123L, Potassium Level 3.6, Chloride Level 90L, Carbon Dioxide Level 24, Anion Gap 9, Blood Urea Nitrogen 6L, Creatinine 0.5L, Estimat Glomerular Filtration Rate > 60, Glucose Level 133H, Calcium Level 8.2L 11/10/20 16:30: POC Whole Blood Glucose 150H Current Medications Medications (Trade) Dose Ordered Sig/Ethan Route PRN Reason Start Time Stop Time Status Last Admin Dose Admin Acetaminophen (Tylenol) 650 mg Q4H PRN ORAL Temp >100.5 11/06/20 21:30 12/06/20 21:29 11/09/20 15:50 Acetaminophen (Tylenol) 650 mg Q6H PRN ORAL Pain Scale (6-10) 11/10/20 14:15 12/10/20 14:14 11/10/20 15:23 Albuterol/ Ipratropium (Albuterol/ Ipratropium) 3 ml Q4H PRN HHN Shortness of Breath 11/07/20 20:00 11/12/20 19:59 11/10/20 16:07 Amlodipine Besylate (Norvasc) 5 mg DAILY ORAL 11/10/20 09:00 12/07/20 08:59 Aspirin (Ecotrin) 81 mg DAILY ORAL 11/07/20 09:00 12/22/20 08:59 11/10/20 09:21 Dextrose (Dextrose 50%) 25 ml Q30M PRN IV Hypoglycemia 11/10/20 06:45 02/08/21 06:44 Dextrose (Dextrose 50%) 50 ml Q30M PRN IV Hypoglycemia 11/10/20 06:45 02/08/21 06:44 Guaifenesin/ Dextromethorphan (Robitussin DM Syrup) 5 ml Q6H PRN ORAL For Cough 11/07/20 22:00 02/05/21 21:59 11/08/20 05:31 Hydralazine HCl (Apresoline) 25 mg Q12H PRN ORAL SBP >140 11/09/20 16:52 02/07/21 16:51 11/10/20 06:17 Insulin Aspart (NovoLOG) BEFORE MEALS AND HS SUBQ 11/10/20 11:30 02/08/21 11:29 11/10/20 16:46 Lisinopril (ZestriL) 10 mg DAILY ORAL 11/09/20 17:00 12/09/20 16:59 11/09/20 17:11 Morphine Sulfate (Morphine Sulfate) 2 mg Q2H PRN IVP For Pain 11/08/20 10:45 11/15/20 10:44 Nebivolol (Bystolic) 5 mg DAILY ORAL 11/07/20 09:00 12/07/20 08:59 11/10/20 09:21 Nitroglycerin (Ntg) 0.4 mg Q5M PRN SL Prn Chest Pain 11/08/20 10:45 12/08/20 10:44 11/08/20 10:56 Ondansetron HCl (Zofran) 4 mg Q6H PRN IVP Nausea & Vomiting 11/06/20 21:30 12/06/20 21:29 Polyethylene Glycol (Miralax) 17 gm HSPRN PRN ORAL Constipation 11/06/20 21:30 12/06/20 21:29 Sodium Chloride 250 ml @ 50 mls/hr ONCE ONCE IV 11/10/20 13:00 11/10/20 17:59 11/10/20 13:52 Spironolactone (Aldactone) 25 mg DAILY ORAL 11/09/20 16:15 12/09/20 16:14 11/10/20 09:21 Zolpidem Tartrate (Ambien) 5 mg HSPRN PRN ORAL Insomnia 11/06/20 21:30 11/13/20 21:29 11/08/20 20:23 Assessment/Plan Problems: (1) Acute hyponatremia (2) SIADH (syndrome of inappropriate ADH production) (3) Diabetes mellitus (4) History of CVA (cerebrovascular accident) (5) History of hypertension (6) Osteoarthritis Assessment/Plan Na is slightly lower again f/u nephrology recommendations no new complains hyponatremia w/u sliding scale check electrolytes dvt prophylaxis. Jessi Porter MD Nov 10, 2020 17:28
--- NOTE | 2020-11-10 18:50 | Internal Med Progress Note ---
Subjective Date of Service: Nov 10, 2020 Physician Name TeriKermit Attending Physician Redd Goodwin MD Current Medications Medications (Trade) Dose Ordered Sig/Ethan Route PRN Reason Start Time Stop Time Status Last Admin Dose Admin Acetaminophen (Tylenol) 650 mg Q4H PRN ORAL Temp >100.5 11/06/20 21:30 12/06/20 21:29 11/09/20 15:50 Acetaminophen (Tylenol) 650 mg Q6H PRN ORAL Pain Scale (6-10) 11/10/20 14:15 12/10/20 14:14 11/10/20 15:23 Albuterol/ Ipratropium (Albuterol/ Ipratropium) 3 ml Q4H PRN HHN Shortness of Breath 11/07/20 20:00 11/12/20 19:59 11/10/20 16:07 Amlodipine Besylate (Norvasc) 5 mg DAILY ORAL 11/10/20 09:00 12/07/20 08:59 Aspirin (Ecotrin) 81 mg DAILY ORAL 11/07/20 09:00 12/22/20 08:59 11/10/20 09:21 Dextrose (Dextrose 50%) 25 ml Q30M PRN IV Hypoglycemia 11/10/20 06:45 02/08/21 06:44 Dextrose (Dextrose 50%) 50 ml Q30M PRN IV Hypoglycemia 11/10/20 06:45 02/08/21 06:44 Guaifenesin/ Dextromethorphan (Robitussin DM Syrup) 5 ml Q6H PRN ORAL For Cough 11/07/20 22:00 02/05/21 21:59 11/08/20 05:31 Hydralazine HCl (Apresoline) 25 mg Q12H PRN ORAL SBP >140 11/09/20 16:52 02/07/21 16:51 11/10/20 06:17 Insulin Aspart (NovoLOG) BEFORE MEALS AND HS SUBQ 11/10/20 11:30 02/08/21 11:29 11/10/20 16:46 Lisinopril (ZestriL) 10 mg DAILY ORAL 11/09/20 17:00 12/09/20 16:59 11/09/20 17:11 Morphine Sulfate (Morphine Sulfate) 2 mg Q2H PRN IVP For Pain 11/08/20 10:45 11/15/20 10:44 Nebivolol (Bystolic) 5 mg DAILY ORAL 11/07/20 09:00 12/07/20 08:59 11/10/20 09:21 Nitroglycerin (Ntg) 0.4 mg Q5M PRN SL Prn Chest Pain 11/08/20 10:45 12/08/20 10:44 11/08/20 10:56 Ondansetron HCl (Zofran) 4 mg Q6H PRN IVP Nausea & Vomiting 11/06/20 21:30 12/06/20 21:29 Polyethylene Glycol (Miralax) 17 gm HSPRN PRN ORAL Constipation 11/06/20 21:30 12/06/20 21:29 Spironolactone (Aldactone) 25 mg DAILY ORAL 11/09/20 16:15 12/09/20 16:14 11/10/20 09:21 Zolpidem Tartrate (Ambien) 5 mg HSPRN PRN ORAL Insomnia 11/06/20 21:30 11/13/20 21:29 11/08/20 20:23 Allergies: Coded Allergies: PREDNISONE (Verified Allergy, Severe, REDNESS, SWELLING, 03/06/14) PENICILLINS (Verified Allergy, Intermediate, 03/18/17) ROS Limited/Unobtainable: No Constitutional: Reports: no symptoms HEENT: Reports: no symptoms Cardiovascular: Reports: no symptoms Respiratory: Reports: no symptoms Gastrointestinal/Abdominal: Reports: no symptoms Genitourinary: Reports: no symptoms Neurologic/Psychiatric: Reports: no symptoms Subjective 85 YO F admitted with nausea, vomiting and diarrhea. Now hyponatremia and hypokalemia. Cover for Int Med-DR Goodwin Objective Last Vital Signs Date Time Temp Pulse Resp B/P (MAP) Pulse Ox O2 Delivery O2 Flow Rate FiO2 11/10/20 16:00 98.2 80 18 148/70 (96) 97 11/10/20 09:31 Nasal Cannula 2.0 28 Laboratory Tests Test 11/10/20 06:59 11/10/20 16:30 White Blood Count 11.9 K/UL (4.8-10.8) H Red Blood Count 3.95 M/UL (4.20-5.40) L Hemoglobin 11.9 G/DL (12.0-16.0) L Hematocrit 32.9 % (37.0-47.0) L Mean Corpuscular Volume 83 FL (80-99) Mean Corpuscular Hemoglobin 30.2 PG (27.0-31.0) Mean Corpuscular Hemoglobin Concent 36.3 G/DL (32.0-36.0) H Red Cell Distribution Width 12.3 % (11.6-14.8) Platelet Count 155 K/UL (150-450) Mean Platelet Volume 11.4 FL (6.5-10.1) H Neutrophils (%) (Auto) 69.2 % (45.0-75.0) Lymphocytes (%) (Auto) 22.4 % (20.0-45.0) Monocytes (%) (Auto) 7.6 % (1.0-10.0) Eosinophils (%) (Auto) 0.4 % (0.0-3.0) Basophils (%) (Auto) 0.4 % (0.0-2.0) Sodium Level 123 MMOL/L (136-145) L Potassium Level 3.6 MMOL/L (3.5-5.1) Chloride Level 90 MMOL/L (98-107) L Carbon Dioxide Level 24 MMOL/L (21-32) Anion Gap 9 mmol/L (5-15) Blood Urea Nitrogen 6 mg/dL (7-18) L Creatinine 0.5 MG/DL (0.55-1.30) L Estimat Glomerular Filtration Rate > 60 mL/min (>60) Glucose Level 133 MG/DL (74-106) H Calcium Level 8.2 MG/DL (8.5-10.1) L POC Whole Blood Glucose 150 MG/DL (74-106) H Microbiology Date/Time Source Procedure Growth Status 11/08/20 01:00 Nasopharynx SARS-CoV-2 RdRp Gene Assay - Final Complete Intake and Output 11/09/20 11/10/20 19:00 07:00 Intake Total 700 ml Output Total 700 ml Balance 0 ml Intake Oral 700 ml Output Urine Total 700 ml # Voids 3 3 Objective PHYSICAL EXAMINATION: GENERAL: The patient is awake, responsive, in no acute distress. HEENT: Head and neck examination, pupils are equal and reactive to light. Extraocular movement intact. NECK: Supple. No JVD. LUNGS: Good air entry. No wheezes or rales. HEART: S1, S2. Regular rhythm. No murmur or gallops. ABDOMEN: Soft, nondistended, nontender. Mildly obese. EXTREMITIES: No cyanosis, clubbing, or edema. NEUROLOGIC: Cranial nerves II through XII grossly intact. Motor is 5/5 in all extremities. Gait was not assessed due to patient's status. RECTAL: Refused and deferred. GENITOURINARY: Refused and deferred. PSYCHIATRIC: Mood and affect is intact. Assessment/Plan Assessment/Plan K Assessment/Plan Assessment/Plan Assessment/Plan severe hyponatremia SIADH (syndrome inappropriate anti-diuretic hormone) Dehydration and hypovolemia Hypokalemia Diabetic type II Dyslipidemia Hypertension Morbid obesity Right brain aneurysm status post of Clips Plan: Monitor laboratory closely IV hydrationwith 3% NaCl per nephrology=Dr Caballero Monitor blood glucose level CODE STATUS: Full code DVT prophylaxis: Heparin subcu pulmonary critical care =DR Porter PT mobility. replace potassium Kermit Williamson MD Nov 10, 2020 18:50
--- NOTE | 2020-11-10 18:59 | NUR ---
NURSE HAND-OFF REPORT: Important Events on Shift:[Pt refused BP medications. Spoke to daughter Shelley about pt condition.] Patient Status: [Full Code] Diet: [Regular Diet with 800 mL Fluid Restriction] Pending Orders: [] Pending Results/Labs:[Am Labs] Pending MD notification:[] Latest Vital Signs: Temperature 98.2 , Pulse 69 , B/P 148 /70 , Respiratory Rate 18 , O2 SAT 97 , Nasal Cannula, O2 Flow Rate 2.0 . Vital Sign Comment: [] EKG Rhythm: Sinus Rhythm Rhythm change?: N MD Notified?: - MD Response: Latest Cortez Fall Score: 45 Fall Risk: High Risk Safety Measures: Call light Within Reach, Bed Alarm Zone 2, Side Rails Side Rails x3, Bed position Low and Locked. Fall Precautions: Yellow Socks Yellow Gown Patient Fall Education Report given to [Elsa Rebolledo RN].
--- NOTE | 2020-11-10 19:10 | Cardiology Progress Note ---
Assessment/Plan Assessment/Plan hypertension, diabetes, cerebral aneurysm, treated surgically hyponatremia cortisol and tsh normal trop neg await echo tele sinus ekg sinus robert bp not perfect but she refused to tahe Zestril and hydralazine will observe bp await improvement in na Subjective Cardiovascular: Denies: chest pain, lightheadedness, palpitations Respiratory: Denies: shortness of breath Gastrointestinal/Abdominal: Denies: abdominal pain Genitourinary: Denies: burning Objective Last 24 Hour Vital Signs Date Time Temp Pulse Resp B/P (MAP) Pulse Ox O2 Delivery O2 Flow Rate FiO2 11/10/20 16:00 98.2 80 18 148/70 (96) 97 11/10/20 16:00 69 11/10/20 12:00 98.4 76 24 171/71 (104) 96 11/10/20 12:00 81 11/10/20 09:31 83 20 99 Nasal Cannula 2.0 28 79 20 96 11/10/20 09:00 76 150/63 11/10/20 09:00 150/63 11/10/20 09:00 Nasal Cannula 2.0 11/10/20 08:00 98.6 76 22 150/63 (92) 98 11/10/20 08:00 74 11/10/20 07:15 98 Nasal Cannula 2.0 28 11/10/20 07:15 76 20 98 Nasal Cannula 2.0 28 11/10/20 06:17 172/69 11/10/20 04:00 68 11/10/20 04:00 97.9 64 18 172/69 (103) 98 11/10/20 00:00 97.7 63 20 148/55 (86) 98 11/10/20 00:00 67 11/09/20 21:00 Nasal Cannula 2.0 11/09/20 20:16 98 Nasal Cannula 2.0 28 11/09/20 20:16 64 20 98 Nasal Cannula 2.0 28 11/09/20 20:00 97.7 63 20 111/69 (83) 98 11/09/20 20:00 67 General Appearance: no apparent distress, alert Cardiovascular: normal rate Respiratory/Chest: lungs clear Abdomen: normal bowel sounds, non tender, soft Extremities: no swelling Intake and Output 11/09/20 11/10/20 19:00 07:00 Intake Total 700 ml Output Total 700 ml Balance 0 ml Intake Oral 700 ml Output Urine Total 700 ml # Voids 3 3 Laboratory Tests Test 11/10/20 06:59 11/10/20 16:30 White Blood Count 11.9 K/UL (4.8-10.8) H Red Blood Count 3.95 M/UL (4.20-5.40) L Hemoglobin 11.9 G/DL (12.0-16.0) L Hematocrit 32.9 % (37.0-47.0) L Mean Corpuscular Volume 83 FL (80-99) Mean Corpuscular Hemoglobin 30.2 PG (27.0-31.0) Mean Corpuscular Hemoglobin Concent 36.3 G/DL (32.0-36.0) H Red Cell Distribution Width 12.3 % (11.6-14.8) Platelet Count 155 K/UL (150-450) Mean Platelet Volume 11.4 FL (6.5-10.1) H Neutrophils (%) (Auto) 69.2 % (45.0-75.0) Lymphocytes (%) (Auto) 22.4 % (20.0-45.0) Monocytes (%) (Auto) 7.6 % (1.0-10.0) Eosinophils (%) (Auto) 0.4 % (0.0-3.0) Basophils (%) (Auto) 0.4 % (0.0-2.0) Sodium Level 123 MMOL/L (136-145) L Potassium Level 3.6 MMOL/L (3.5-5.1) Chloride Level 90 MMOL/L (98-107) L Carbon Dioxide Level 24 MMOL/L (21-32) Anion Gap 9 mmol/L (5-15) Blood Urea Nitrogen 6 mg/dL (7-18) L Creatinine 0.5 MG/DL (0.55-1.30) L Estimat Glomerular Filtration Rate > 60 mL/min (>60) Glucose Level 133 MG/DL (74-106) H Calcium Level 8.2 MG/DL (8.5-10.1) L POC Whole Blood Glucose 150 MG/DL (74-106) H Microbiology Date/Time Source Procedure Growth Status 11/08/20 01:00 Nasopharynx SARS-CoV-2 RdRp Gene Assay - Final Complete Melvin Fung MD Nov 10, 2020 19:10
[2020-11-10 20:00] VITALS: BP 160/69
[2020-11-10] MEDS: Zolpidem 5mg tab ORAL PRN (21:29)
[2020-11-11] VITALS: BP 131/90
[2020-11-11 04:00] VITALS: BP 181/94
[2020-11-11] MEDS: Albuterol/Ipratropium 3ml neb HHN PRN ×3 (04:54→13:21)
[2020-11-11] MEDS: NovoLOG Insulin Flexpen SUBQ SCH ×2 (05:49→11:30)
--- NOTE | 2020-11-11 06:47 | General Progress Note ---
Subjective ROS Limited/Unobtainable: Yes Allergies: Coded Allergies: PREDNISONE (Verified Allergy, Severe, REDNESS, SWELLING, 03/06/14) PENICILLINS (Verified Allergy, Intermediate, 03/18/17) Subjective events noted interval notes reviewed Item Value Date Time Bedside Blood Glucose 141 mg/dl H 11/11/20 0630 Bedside Blood Glucose 163 mg/dl H 11/10/20 2123 Bedside Blood Glucose 150 mg/dl H 11/10/20 1646 Bedside Blood Glucose 181 mg/dl H 11/10/20 1145 Objective Last 24 Hour Vital Signs Date Time Temp Pulse Resp B/P (MAP) Pulse Ox O2 Delivery O2 Flow Rate FiO2 11/11/20 04:55 79 20 99 Nasal Cannula 3.0 32 75 20 95 11/11/20 04:00 83 11/11/20 04:00 99.0 76 18 181/94 (123) 97 11/11/20 00:00 69 11/11/20 00:00 98.1 76 18 131/90 (104) 97 11/10/20 21:00 Nasal Cannula 2.0 11/10/20 20:28 97 Nasal Cannula 2.0 28 11/10/20 20:27 72 18 97 Nasal Cannula 2.0 28 11/10/20 20:00 69 11/10/20 20:00 99.2 69 18 160/69 (99) 97 11/10/20 16:00 98.2 80 18 148/70 (96) 97 11/10/20 16:00 69 11/10/20 12:00 98.4 76 24 171/71 (104) 96 11/10/20 12:00 81 11/10/20 09:31 83 20 99 Nasal Cannula 2.0 28 79 20 96 11/10/20 09:00 76 150/63 11/10/20 09:00 150/63 11/10/20 09:00 Nasal Cannula 2.0 11/10/20 08:00 98.6 76 22 150/63 (92) 98 11/10/20 08:00 74 11/10/20 07:15 98 Nasal Cannula 2.0 28 11/10/20 07:15 76 20 98 Nasal Cannula 2.0 28 Intake and Output 11/10/20 11/11/20 19:00 07:00 Intake Total 803.7 ml Balance 803.7 ml Intake Oral 597 ml IV Total 206.7 ml # Voids 3 Laboratory Tests 11/10/20 06:59: White Blood Count 11.9H, Red Blood Count 3.95L, Hemoglobin 11.9L, Hematocrit 32.9L, Mean Corpuscular Volume 83, Mean Corpuscular Hemoglobin 30.2, Mean Corpuscular Hemoglobin Concent 36.3H, Red Cell Distribution Width 12.3, Platelet Count 155, Mean Platelet Volume 11.4H, Neutrophils (%) (Auto) 69.2, Lymphocytes (%) (Auto) 22.4, Monocytes (%) (Auto) 7.6, Eosinophils (%) (Auto) 0.4, Basophils (%) (Auto) 0.4, Sodium Level 123L, Potassium Level 3.6, Chloride Level 90L, Carbon Dioxide Level 24, Anion Gap 9, Blood Urea Nitrogen 6L, Creatinine 0.5L, Estimat Glomerular Filtration Rate > 60, Glucose Level 133H, Calcium Level 8.2L 11/10/20 16:30: POC Whole Blood Glucose 150H Height (Feet): 5 Height (Inches): 2.00 Weight (Pounds): 144 General Appearance: no apparent distress Neck: normal alignment Cardiovascular: normal rate Respiratory/Chest: decreased breath sounds Abdomen: normal bowel sounds Assessment/Plan Problem List: (1) Acute hyponatremia ICD Codes: E87.1 - Hypo-osmolality and hyponatremia SNOMED: 0267059 (2) SIADH (syndrome of inappropriate ADH production) ICD Codes: E22.2 - Syndrome of inappropriate secretion of antidiuretic hormone SNOMED: 33206046 (3) Diabetes mellitus ICD Codes: E11.9 - Type 2 diabetes mellitus without complications SNOMED: 71644684 Status: stable, not improved Assessment/Plan: continue glucose monitoring and Novolog coverage [facility] no need for basal insulin for now hypoglycemia protocol in order Paul Phillips MD Nov 11, 2020 06:47
[2020-11-11 07:16] LABS: BASOPHILS % (AUTO) 0.5 % (0.0-2.0); EOSINOPHILS % (AUTO) 0.8 % (0.0-3.0); HEMATOCRIT 32.7 % (37.0-47.0); HEMOGLOBIN 11.7 G/DL (12.0-16.0); LYMPHOCYTES % (AUTO) 24.6 % (20.0-45.0); MEAN CORPUSCULAR VOLUME 86 FL (80-99); MONOCYTES % (AUTO) 8.2 % (1.0-10.0); PLATELET COUNT 163 K/UL (150-450); RED BLOOD COUNT 3.82 M/UL (4.20-5.40); RED CELL DISTRIBUTION WIDTH 12.7 % (11.6-14.8); WHITE BLOOD COUNT 10.9 K/UL (4.8-10.8)
--- NOTE | 2020-11-11 07:38 | NUR ---
NURSE NOTES: Received pt report from Elsa Rebolledo, broker in charge. Pt is asleep and in no apparent respiratory distress. She has a left 20 gauge IV saline lock that is patent and intact, no redness, swelling or infiltration noted. She is on 800 mL fluid restrictions. AM labs were drawn this morning and are pending. Pt removed awake overnight monitor last night because she did not want it bothering her, will replace it this morning. Bed is in the lowest position and locked, side rails up x2, call light is within reach, fall precautions are in place. Will continue to monitor.
--- NOTE | 2020-11-11 07:47 | NUR ---
NURSE HAND-OFF REPORT: Important Events on Shift:[Off quality assurance monitor body due to patient refusal. Endorsed to attempt to re-apply box in the morning.] Patient Status: [Full Code] Diet: [Regular] Pending Orders: [] Pending Results/Labs:[] Pending MD notification:[] Latest Vital Signs: Temperature 99.0 , Pulse 76 , B/P 181 /94 , Respiratory Rate 18 , O2 SAT 97 , Nasal Cannula, O2 Flow Rate 2.0 . Vital Sign Comment: [] EKG Rhythm: Sinus Rhythm Rhythm change?: N MD Notified?: - MD Response: Latest Cortez Fall Score: 45 Fall Risk: High Risk Safety Measures: Call light Within Reach, Bed Alarm Zone 2, Side Rails Side Rails x3, Bed position Low and Locked. Fall Precautions: Yellow Socks Yellow Gown Patient Fall Education Report given to [FRANDY Ambriz].
[2020-11-11 08:00] VITALS: BP 154/80
--- NOTE | 2020-11-11 08:06 | NUR ---
NURSE NOTES: Placed machinist apprentice back on patient. Daughter, Shelley, called and I updated her on her mother's status. Shelley sked if Dr. Goodwin could give her a call to update her because she still hasn't received a call from him. Will contact with update.
[2020-11-11 08:28] LABS: ANION GAP 10 mmol/L (5-15); BLOOD UREA NITROGEN 8 mg/dL (7-18); CALCIUM 8.6 MG/DL (8.5-10.1); CARBON DIOXIDE 23 MMOL/L (21-32); CHLORIDE 93 MMOL/L (98-107); CREATININE 0.6 MG/DL (0.55-1.30); POTASSIUM 4.1 MMOL/L (3.5-5.1); SODIUM 126 MMOL/L (136-145)
[2020-11-11] MEDS: Spironolactone 25mg tab ORAL SCH (08:59)
[2020-11-11] MEDS: Aspirin EC 81mg tab ORAL SCH (08:59)
[2020-11-11] MEDS: Bystolic 2.5mg Tab ORAL SCH (09:00)
[2020-11-11] MEDS: Lisinopril 10mg tab ORAL SCH (09:00)
--- NOTE | 2020-11-11 10:39 | NUR ---
NURSE NOTES: Contacted to give him an update on the patient's status, labs, change in cardiac rhythm and for him to contact patient's daughter Shelley.
--- NOTE | 2020-11-11 11:23 | Pulmonology Progress Note ---
Subjective ROS Limited/Unobtainable: Yes Constitutional: Reports: no symptoms HEENT: Repors: no symptoms Respiratory: Reports: no symptoms Allergies: Coded Allergies: PREDNISONE (Verified Allergy, Severe, REDNESS, SWELLING, 03/06/14) PENICILLINS (Verified Allergy, Intermediate, 03/18/17) Objective Last 24 Hour Vital Signs Date Time Temp Pulse Resp B/P (MAP) Pulse Ox O2 Delivery O2 Flow Rate FiO2 11/11/20 09:22 79 20 99 Nasal Cannula 3.0 32 79 20 96 11/11/20 09:01 75 154/80 11/11/20 09:00 154/80 11/11/20 09:00 Nasal Cannula 2.0 11/11/20 08:15 96 Nasal Cannula 2.0 28 11/11/20 08:15 75 18 96 Nasal Cannula 3.0 32 11/11/20 08:00 79 11/11/20 08:00 98.2 98 18 154/80 (104) 98 11/11/20 04:55 79 20 99 Nasal Cannula 3.0 32 75 20 95 11/11/20 04:00 83 11/11/20 04:00 99.0 76 18 181/94 (123) 97 11/11/20 00:00 69 11/11/20 00:00 98.1 76 18 131/90 (104) 97 11/10/20 21:00 Nasal Cannula 2.0 11/10/20 20:28 97 Nasal Cannula 2.0 28 11/10/20 20:27 72 18 97 Nasal Cannula 2.0 28 11/10/20 20:00 69 11/10/20 20:00 99.2 69 18 160/69 (99) 97 11/10/20 16:00 98.2 80 18 148/70 (96) 97 11/10/20 16:00 69 11/10/20 12:00 98.4 76 24 171/71 (104) 96 11/10/20 12:00 81 Intake and Output 11/10/20 11/11/20 19:00 07:00 Intake Total 803.7 ml Balance 803.7 ml Intake Oral 597 ml IV Total 206.7 ml # Voids 3 General Appearance: WD/WN, no acute distress Respiratory: chest wall non-tender, lungs clear Cardiovascular: normal peripheral pulses, normal rate Abdomen: normal bowel sounds, soft, non tender Genitourinary: normal external genitalia Extremities: no cyanosis Skin: no rash Neurologic: 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 7L, Mean Corpuscular Volume 86, Mean Corpuscular Hemoglobin 30.7, Mean Corpuscular Hemoglobin Concent 35.8, Red Cell Distribution Width 12.7, Platelet Count 163, Mean Platelet Volume 9.3, Neutrophils (%) (Auto) 66.0, Lymphocytes (%) (Auto) 24.6, Monocytes (%) (Auto) 8.2, Eosinophils (%) (Auto) 0.8, Basophils (%) (Auto) 0.5, Sodium Level 126L, Potassium Level 4.1, Chloride Level 93L, Carbon Dioxide Level 23, Anion Gap 10, Blood Urea Nitrogen 8, Creatinine 0.6, Estimat Glomerular Filtration Rate > 60, Glucose Level 141H, Calcium Level 8.6 Current Medications Medications (Trade) Dose Ordered Sig/Ethan Route PRN Reason Start Time Stop Time Status Last Admin Dose Admin Acetaminophen (Tylenol) 650 mg Q4H PRN ORAL Temp >100.5 11/06/20 21:30 12/06/20 21:29 11/09/20 15:50 Acetaminophen (Tylenol) 650 mg Q6H PRN ORAL Pain Scale (6-10) 11/10/20 14:15 12/10/20 14:14 11/11/20 09:00 Albuterol/ Ipratropium (Albuterol/ Ipratropium) 3 ml Q4H PRN HHN Shortness of Breath 11/07/20 20:00 11/12/20 19:59 11/11/20 09:21 Amlodipine Besylate (Norvasc) 5 mg DAILY ORAL 11/10/20 09:00 12/07/20 08:59 11/11/20 09:01 Aspirin (Ecotrin) 81 mg DAILY ORAL 11/07/20 09:00 12/22/20 08:59 11/11/20 08:59 Dextrose (Dextrose 50%) 25 ml Q30M PRN IV Hypoglycemia 11/10/20 06:45 02/08/21 06:44 Dextrose (Dextrose 50%) 50 ml Q30M PRN IV Hypoglycemia 11/10/20 06:45 02/08/21 06:44 Guaifenesin/ Dextromethorphan (Robitussin DM Syrup) 5 ml Q6H PRN ORAL For Cough 11/07/20 22:00 02/05/21 21:59 11/08/20 05:31 Hydralazine HCl (Apresoline) 25 mg Q12H PRN ORAL SBP >140 11/09/20 16:52 02/07/21 16:51 11/10/20 06:17 Insulin Aspart (NovoLOG) BEFORE MEALS AND HS SUBQ 11/10/20 11:30 02/08/21 11:29 11/11/20 05:49 Lisinopril (ZestriL) 10 mg DAILY ORAL 11/09/20 17:00 12/09/20 16:59 11/09/20 17:11 Morphine Sulfate (Morphine Sulfate) 2 mg Q2H PRN IVP For Pain 11/08/20 10:45 11/15/20 10:44 Nebivolol (Bystolic) 5 mg DAILY ORAL 11/07/20 09:00 12/07/20 08:59 11/11/20 09:00 Nitroglycerin (Ntg) 0.4 mg Q5M PRN SL Prn Chest Pain 11/08/20 10:45 12/08/20 10:44 11/08/20 10:56 Ondansetron HCl (Zofran) 4 mg Q6H PRN IVP Nausea & Vomiting 11/06/20 21:30 12/06/20 21:29 Polyethylene Glycol (Miralax) 17 gm HSPRN PRN ORAL Constipation 11/06/20 21:30 12/06/20 21:29 Spironolactone (Aldactone) 25 mg DAILY ORAL 11/09/20 16:15 12/09/20 16:14 11/11/20 08:59 Zolpidem Tartrate (Ambien) 5 mg HSPRN PRN ORAL Insomnia 11/06/20 21:30 11/13/20 21:29 11/10/20 21:29 Assessment/Plan Problems: (1) Acute hyponatremia (2) SIADH (syndrome of inappropriate ADH production) (3) Diabetes mellitus (4) History of CVA (cerebrovascular accident) (5) History of hypertension (6) Osteoarthritis Assessment/Plan Na is slightly higher after 3% f/u nephrology recommendations no new complains hyponatremia w/u sliding scale check electrolytes dvt prophylaxis. ut home withDemeclocline Jessi Porter MD Nov 11, 2020 11:23
[2020-11-11] MEDS ORDERED: DECLOMYCIN150 MG ORAL (11:25)
[2020-11-11 12:00] VITALS: BP 160/68
[2020-11-11 12:56] VITALS: BP 160/68
[2020-11-11] MEDS: HydrALAZINE 25mg tab ORAL PRN (12:56)
--- NOTE | 2020-11-11 15:37 | NUR ---
NURSE NOTES: Patient was discharged at approximately 1500 today to go home with home health services. Case management is working on figuring out home health services. Awaiting call from patient's primary doctor's office with update on previous home health service agency. Patient's monitoring coordinator was removed, pt was tolerating Room air well, in no respiratory distress. Pt was given all belongings and was taken to vehicle via wheelchair. Daughter picked up patient and was given pt belongings. Per daughter, she is still awaiting a call from Dr. Goodwin.
--- NOTE | 2020-11-13 08:41 | Discharge Summary ---
Discharge Summary Discharge Summary _ DATE OF ADMISSION: 11/06/2020 DATE OF DISCHARGE: 11/11/2020 DISCHARGED BY: Dr. Goodwin REASON FOR ADMISSION: 85 years old female with past medical history of diabetes mellitus type 2, hypertension, dyslipidemia, history of right brain aneurysm, status post clipping x2, history of left total knee replacement presented to emergency department complaining of nausea, vomiting, and diarrhea for the past two to three days. Patient denied loss of consciousness or blackouts. Patient denied headaches. Patient reported weakness , fatigue and feeling thirsty. She denied fever or chills . No shortness of breath or cough . No chest pain . Patient was able to keep down the water. Upon evaluation in emergency department patient was found to have severe hyponatremia with sodium 115. Potassium 3.0. Chloride 82. Stable renal parameters. Glucose 168. Serum osmolality 253. Troponin negative. Stable thyroid panel , LFT and lipase . No leukocytosis, stable hemoglobin and hematocrit . Urinalysis revealed +1 protein , +2 glucose, no evidence of UTI. Urine osmolality 459 . Chest x-ray revealed pulmonary vascular congestion with bibasilar airspace opacity , probably atelectasis, but pneumonia not excluded. Abdominal x-ray revealed nonobstructive bowel gas pattern. Patient subsequently admitted for severe hyponatremia, hypokalemia and dehydration . CONSULTANTS: assistant technician Dr. Fung travel consultant Dr. Phillips pulmonary/critical care supervisor data processing Dr. Cunningham [facility] COURSE: Patient admitted to monitored floor. Mental Health Advanced Practice Nurse closely followed. Patient was on free water restriction and received trial of 3% saline. Urine studies were done and were consistent with SIADH. Patient started on demeclocycline, which she needs to continue upon discharge. Sodium slowly trended up: prior to discharge sodium up to 126. Potassium was replaced. DVT prophylaxis provided. Supplemental oxygen provided and titrated to keep pulse oximetry above 92%. Home medication resumed. Blood sugar was managed as per travel consultant recommendation. No need for basal insulin. Blood sugar was managed with sliding scale of insulin. Hypoglycemia protocol was in place. Diabetic diet and diabetic teaching provided. Blood pressure was managed as per assistant technician recommendation. Cortisol and TSH within normal limits . Troponin negative. EKG revealed sinus bradycardia in high 50s. Echocardiogram revealed preserved ejection fraction 60 to 65%. No evidence of left ventricular hypertrophy. No evidence of wall motion abnormality. Moderate to severe mitral regurgitation and moderate tricuspid regurgitation. Blood pressure was managed with calcium channel tamar and hydralazine. Patient was also on diuretics: spironolactone and Lasix. Volumes were closely monitored. Patient clinically stabilized and was ready for discharge home. Home health service was arranged. FINAL DIAGNOSES: Severe acute hyponatremia SIADH Dehydration and hypovolemia Hypokalemia Diabetes mellitus type 2 Hypertension Dyslipidemia Obesity History of CVA Right-sided brain aneurysm , status post clipping x2 DISCHARGE MEDICATIONS: See Medication Reconciliation list. DISCHARGE INSTRUCTIONS: Patient was discharged home with home health services. Follow up with primary care provider in one week. I have been assigned to dictate discharge summary for this account. I was not involved in the patient's management. Jessica Funez NP Nov 13, 2020 08:41
== END 2020-11-11 15:00 | disposition home health service (06) | DRG 645 ==
LOC: EDUNIT# 15:46 → EDBD 15:46 → EMR 16:35 → EDBEDREQ 18:08 → 2E 18:55 → EDBEDREQ 21:22 → 2E 11-07 21:14
DX: E22.2 Syndrome of inappropriate secretion of antidiuretic hormone (principal); E11.9 Type 2 diabetes mellitus without complications; M19.90 Unspecified osteoarthritis, unspecified site; E86.1 Hypovolemia; E86.0 Dehydration; E66.01 Morbid (severe) obesity due to excess calories; Z88.0 Allergy status to penicillin; Z88.8 Allergy status to other drugs, medicaments and biological substances; Z96.652 Presence of left artificial knee joint; I10 Essential (primary) hypertension; E78.5 Hyperlipidemia, unspecified; E87.6 Hypokalemia; Z86.79 Personal history of other diseases of the circulatory system
CPT/HCPCS: 36415; 71045; 74018; 80048; 80053; 80061; 81003; 82248; 82306; 82378; 82533; 82962; 83690; 83735; 83930; 83935; 84100; 84300; 84439; 84443; 84481; 84484; 84550; 85025; 85610; 85730; 93005; 93306; 94640; 96374; 96375; 99285; J1815; J2765; J7030; J7620; J8499; U0002